=== PATIENT | female | born 1935 | race Caucasian/White ===

== ENCOUNTER 2018-09-13 08:55 | Emergency (ER) | payer OTHER ==
--- NOTE | 2018-09-13 10:23 | RAD REPORT ---
EXAM DESCRIPTION: CT - C Spine Wo Con - 09/13/2018 9:56 am CLINICAL HISTORY: Arm radiculopathy COMPARISON: None. TECHNIQUE: Computed axial tomography of the cervical spine were obtained with sagittal and coronal r econstruction images generated and reviewed. All CT scans are performed using dose optimization technique as appropriate and may include automated exposure control or mA/KV adjustment according to patient size. FINDINGS: A cervical fracture is not seen. No dislocation is noted. Small to moderate right posterolateral central disc herniation suspected C2-3 Osteophytes and facet hypertrophy C3-4 resulting in moderate narrowing of the right neural foramina. Osteophytes and disc bulge C5-6 result in moderate narrowing left neural foramina IMPRESSION: A cervical fracture is not seen. 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
--- NOTE | 2018-09-13 10:45 | ER ---
Nurse's Notes [facility] Name: Cindy Herman Age: 83 yrs Sex: Female : 1935 Arrival Date: 09/13/2018 Time: 08:57 Bed 6 Private MD: China Spence Diagnosis: Sprain of ligaments of cervical spine Presentation: 09/13 09:11 Presenting complaint: Patient states: pain to right side of neck X 1 week, denies iw injury, tender to touch, denies fever, pain sometimes radiates to right arm and up to head, she had a cough about a week before neck pain started, cough has resolved. Transition of care: patient was not received from another setting of care. Acute neurological deficit: none identified. Onset of symptoms was September 13, 2018. Risk Assessment: Do you want to hurt yourself or someone else? Patient reports no desire to harm self or others. Initial Sepsis Screen: Does the patient meet any 2 criteria? No. Patient's initial sepsis screen is negative. Does the patient have a suspected source of infection? No. Patient's initial sepsis screen is negative. Care prior to arrival: None. 09:11 Method Of Arrival: Ambulatory iw 09:11 Acuity: FLAVIO 3 iw Historical: - Allergies: 09:30 Macrobid; iw 09:30 Lisinopril; iw 09:30 cipro-can't take with Nitro; iw - Home Meds: 09:30 alendronate 70 mg oral tab 1 tab once wkly [Active]; atorvastatin 10 mg oral tab 1 tab iw once daily [Active]; carvedilol 6.25 mg oral tab 1 tab 2 times per day [Active]; glimepiride 2 mg Oral tab 1 tab once daily [Active]; ropinirole 5 mg oral tab nightly [Active]; metformin 1,000 mg Oral tab 1 tab 2 times per day [Active]; doxazosin 2 mg oral tab 1 tab once daily [Active]; omeprazole 40 mg Oral cpDR 1 cap once daily [Active]; Nitrostat 0.3 mg SL subl 1 tab every 5 minutes [Active]; aspirin 81 mg Oral TbEC 1 tab once daily [Active]; Ocuvite 705-90-0-150 vl-ayyi-tl-mg oral cap [Active]; Vitamin D Oral daily [Active]; Fish Oil oral oral daily [Active]; Vitamin B-12 Oral [Active]; gabapentin 100 mg oral cap [Active]; - PMHx: 09:30 Hypertension; Diabetes - NIDDM; iw - PSHx: 09:30 Tonsillectomy; Carpal Tunnel Repair; cataracts; heart valve replacement; Tubal ligation;iw - Immunization history:: Adult Immunizations up to date. - Social history:: Smoking status: Patient/guardian denies using tobacco, Patient/guardian denies using alcohol, street drugs, The patient lives with family. - Ebola Screening: : No symptoms or risks identified at this time. - Family history:: not pertinent. - Hospitalizations: : No recent hospitalization is reported. Screenin:08 Abuse screen: Denies threats or abuse. Denies injuries from another. Nutritional hb screening: No deficits noted. Tuberculosis screening: No symptoms or risk factors identified. Fall Risk None identified. Assessment: 09:34 General: Appears in no apparent distress. Behavior is calm, cooperative. Pain: Pain hb currently is 4 out of 10 on a pain scale. Neuro: Level of Consciousness is awake, alert, obeys commands, Oriented to person, place, time, situation. Cardiovascular: Capillary refill < 3 seconds Patient's skin is warm and dry. Respiratory: Airway is patent Trachea midline Respiratory effort is even, unlabored, Respiratory pattern is regular, symmetrical, Breath sounds are clear bilaterally. GI: No signs and/or symptoms were reported involving the gastrointestinal system. : No signs and/or symptoms were reported regarding the genitourinary system. EENT: No signs and/or symptoms were reported regarding the EENT system. Derm: Skin is intact, is healthy with good turgor, Skin is pink, warm \T\ dry. Musculoskeletal: Reports neck. 10:30 Reassessment: Patient appears in no apparent distress at this time. Patient and/or hb family updated on plan of care and expected duration. Pain level reassessed. Patient is alert, oriented x 3, equal unlabored respirations, skin warm/dry/pink. 11:30 Reassessment: Patient appears in no apparent distress at this time. No changes from hb previously documented assessment. Patient and/or family updated on plan of care and expected duration. Pain level reassessed. Patient is alert, oriented x 3, equal unlabored respirations, skin warm/dry/pink. Vital Signs: 09:07 BP 174 / 69; Pulse 75; Resp 16; Pulse Ox 96% on R/A; hb 11:11 BP 133 / 61; Pulse 62; Resp 18; Pulse Ox 97% on R/A; mh5 ED Course: 08:57 Patient arrived in ED. as 08:58 China Spence MD is Private Physician. as 09:07 Brendon Sow MD is Attending Physician. ma2 09:15 Mayco Reich, RN is Primary Nurse. hj 09:15 Triage completed. iw 09:16 Arm band placed on. iw 09:30 Patient has correct armband on for positive identification. Placed in gown. Bed in low hb position. Call light in reach. Side rails up X 1. 09:53 Urine collected: clean catch specimen, cloudy. [facility] 09:56 CT C Spine In Process Unspecified. EDMS 09:56 CT completed. Patient tolerated procedure well. Patient moved back from CT. bq 10:25 Radha Newsome, RN is Primary Nurse. hb 12:25 No provider procedures requiring assistance completed. Patient did not have IV access hj during this emergency room visit. Administered Medications: No medications were administered Outcome: 10:45 Discharge ordered by . ma2 12:25 Discharged to home ambulatory, with family. 12:25 Condition: stable 12:25 Discharge instructions given to patient, family, Instructed on discharge instructions, follow up and referral plans. Demonstrated understanding of instructions, follow-up care, medications, Prescriptions given X 2. 12:29 Patient left the ED. Signatures: Dispatcher [employer] EDAK Zulma Hernandez Amelia as Williams, Irene, RN RN Mayco Reich RN RN Radha Newsome, DEJUAN ZAIDI Tika Solis [facility] Brendon Sow MD MD wvMarlene
--- NOTE | 2018-09-13 10:45 | EDPHYS ---
Physician Documentation [facility] Name: Cindy Herman Age: 83 yrs Sex: Female : 1935 Arrival Date: 09/13/2018 Time: 08:57 Bed 6 Private MD: China Spence ED Physician Brendon Sow HPI: 09/13 09:34 This 83 yrs old Female presents to ER via Ambulatory with complaints of Neck ma2 Pain, >24Hrs Old. 09:34 The patient or guardian complains of pain, that is acute. The symptoms are located ma2 right neck . Onset: The symptoms/episode began/occurred gradually, 7 day(s) ago. Associated signs and symptoms: Pertinent positives: Pertinent negatives: chills, constipation, fever, headache, bladder incontinence, bowel incontinence, nausea, numbness, tingling, vomiting, weakness, No neurological symptoms were experienced by the patient prior to arrival in the emergency department. The pain radiates to the cervical spine. Modifying factors: The symptoms are alleviated by heat, the symptoms are aggravated by movement. Severity of symptoms: At their worst the symptoms were moderate, in the emergency department the symptoms are unchanged. The patient has not experienced similar symptoms in the past. Historical: - Allergies: 09:30 Macrobid; iw 09:30 Lisinopril; iw 09:30 cipro-can't take with Nitro; iw - Home Meds: 09:30 alendronate 70 mg oral tab 1 tab once wkly [Active]; atorvastatin 10 mg oral tab 1 tab iw once daily [Active]; carvedilol 6.25 mg oral tab 1 tab 2 times per day [Active]; glimepiride 2 mg Oral tab 1 tab once daily [Active]; ropinirole 5 mg oral tab nightly [Active]; metformin 1,000 mg Oral tab 1 tab 2 times per day [Active]; doxazosin 2 mg oral tab 1 tab once daily [Active]; omeprazole 40 mg Oral cpDR 1 cap once daily [Active]; Nitrostat 0.3 mg SL subl 1 tab every 5 minutes [Active]; aspirin 81 mg Oral TbEC 1 tab once daily [Active]; Ocuvite 367-04-1-150 ui-hckt-az-mg oral cap [Active]; Vitamin D Oral daily [Active]; Fish Oil oral oral daily [Active]; Vitamin B-12 Oral [Active]; gabapentin 100 mg oral cap [Active]; - PMHx: 09:30 Hypertension; Diabetes - NIDDM; iw - PSHx: 09:30 Tonsillectomy; Carpal Tunnel Repair; cataracts; heart valve replacement; Tubal ligation;iw - Immunization history:: Adult Immunizations up to date. - Social history:: Smoking status: Patient/guardian denies using tobacco, Patient/guardian denies using alcohol, street drugs, The patient lives with family. - Ebola Screening: : No symptoms or risks identified at this time. - Family history:: not pertinent. - Hospitalizations: : No recent hospitalization is reported. ROS: 09:34 Constitutional: Negative for fever, chills, and weight loss. ma2 09:34 Neck: Positive for pain with movement, Negative for injury or acute deformity, stiffness, swelling, swollen nodes, tenderness, bony tenderness, acute changes. 09:34 All other systems are negative. Exam: 09:34 Constitutional: This is a well developed, well nourished patient who is awake, alert, ma2 and in no acute distress. Chest/axilla: Normal chest wall appearance and motion. Nontender with no deformity. No lesions are appreciated. Cardiovascular: Regular rate and rhythm with a normal S1 and S2. No gallops, murmurs, or rubs. Normal PMI, no JVD. No pulse deficits. Respiratory: Lungs have equal breath sounds bilaterally, clear to auscultation and percussion. No rales, rhonchi or wheezes noted. No increased work of breathing, no retractions or nasal flaring. Abdomen/GI: Soft, non-tender, with normal bowel sounds. No distension or tympany. No guarding or rebound. No evidence of tenderness throughout. 09:34 Head/Face: Normocephalic, atraumatic. Eyes: Pupils equal round and reactive to light, extra-ocular motions intact. Lids and lashes normal. Conjunctiva and sclera are non-icteric and not injected. Cornea within normal limits. Periorbital areas with no swelling, redness, or edema. ENT: Nares patent. No nasal discharge, no septal abnormalities noted. Tympanic membranes are normal and external auditory canals are clear. Oropharynx with no redness, swelling, or masses, exudates, or evidence of obstruction, uvula midline. Mucous membranes moist. 09:34 MS/ Extremity: Pulses equal, no cyanosis. Neurovascular intact. Full, normal range of motion. Neuro: Awake and alert, GCS 15, oriented to person, place, time, and situation. Cranial nerves II-XII grossly intact. Motor strength 5/5 in all extremities. Sensory grossly intact. Cerebellar exam normal. Normal gait. 09:34 ENT: TM's: are normal, Nose: is normal, Mouth: is normal. 09:34 Neck: External neck: is normal, C-spine: Thyroid: appears normal, ROM/movement: limited range of motion, that is mild, nuchal rigidity, is not appreciated. Vital Signs: 09:07 BP 174 / 69; Pulse 75; Resp 16; Pulse Ox 96% on R/A; hb 11:11 BP 133 / 61; Pulse 62; Resp 18; Pulse Ox 97% on R/A; mh5 MDM: 09:07 Patient medically screened. ma2 09:34 Differential diagnosis: arthritis, C-Spine Fracture Cervical Disc Herniation Cervical ma2 Raiculopathy cervical strain. 10:44 Data reviewed: vital signs, nurses notes. Counseling: I had a detailed discussion with ma2 the patient and/or guardian regarding: the historical points, exam findings, and any diagnostic results supporting the discharge/admit diagnosis, the presence of at least one elevated blood pressure reading (>120/80) during this emergency department visit, the need for outpatient follow up. 09/13 09:59 Order name: Urine Dipstick--Ancillary (enter results) bd 09/13 09:33 Order name: CT C Spine; Complete Time: 10:44 [facility] Administered Medications: No medications were administered Disposition: 09/13/18 10:45 Discharged to Home. Impression: Sprain of ligaments of cervical spine. - Condition is Stable. - Prescriptions for Tylenol- Codeine #3 300-30 mg Oral Tablet - take 2 tablet by ORAL route every 6 hours As needed; 30 tablet. Cyclobenzaprine 10 mg Oral Tablet - take 1 tablet by ORAL route every 8 hours As needed; 30 tablet. - Medication Reconciliation Form, Thank You Letter, Antibiotic Education, Prescription Opioid Use form. - Follow up: Private Physician; When: Tomorrow; Reason: Continuance of care. Signatures: Dispatcher [employer] Angelika Nelson, RN Mayco Brower RN RN hj Baxter, Heather, RN RN hb Alzahri, Mohammad, MD MD ma2 Corrections: (The following items were deleted from the chart) 12:29 10:45 09/13/2018 10:45 Discharged to Home. Impression: Sprain of ligaments of cervical hj spine. Condition is Stable. Forms are Medication Reconciliation Form, Thank You Letter, Antibiotic Education, Prescription Opioid Use. Follow up: Private Physician; When: Tomorrow; Reason: Continuance of care. ma2
[2018-09-13 11:18] LABS: Urine Blood 1+ (NEG); Urine Glucose NEGATIVE (NEG); Urine Protein TRACE (NEG); Urine Specific Gravity 1.025 (1.005-1.030); Urine pH 5.5 (5.0-7.0)
== END 2018-09-13 12:29 | disposition home or self-care (01) ==
LOC: ER 08:55
DX: S13.4XXA Sprain of ligaments of cervical spine, initial encounter (principal); I10 Essential (primary) hypertension; E11.9 Type 2 diabetes mellitus without complications; Z79.82 Long term (current) use of aspirin; Z88.1 Allergy status to other antibiotic agents; Z88.8 Allergy status to other drugs, medicaments and biological substances; Z95.4 Presence of other heart-valve replacement
CPT/HCPCS: 72125; 81003; 99284

== ENCOUNTER 2019-04-10 14:22 | Inpatient (IN) | payer OTHER ==
[2019-04-10 16:37] LABS: Absolute Lymphocytes (CBC) 0.5 K/uL (0.7-4.9); Basophils % 0.2 % (0-1.3); Hematocrit 33.2 % (36.0-45.0); Lymphocytes % 11.4 % (15.3-44.8); MPV 8.5 fL (7.6-11.3); RBC Red Blood Cell Count 4.07 M/uL (3.86-4.86)
[2019-04-10] MEDS ORDERED: MORPHINE 2 MG/ML SYR ONE (16:37)
[2019-04-10] MEDS ORDERED: ONDANSETRON 4 MG/2 ML VIAL ONE ×2 (16:37→18:59)
[2019-04-10] MEDS ORDERED: NA CHLORIDE 0.9% 500 ML ONE (16:37)
[2019-04-10 17:00] LABS: Albumin 3.1 g/dL (3.4-5.0); Bilirubin Direct 0.4 mg/dL (0-0.2); Bilirubin Total 1.5 mg/dL (0.2-1.0); Potassium 3.8 mmol/L (3.5-5.1); Protein, Total 6.9 g/dL (6.4-8.2)
--- NOTE | 2019-04-10 17:07 | RAD REPORT ---
EXAM DESCRIPTION: CT - Stone Protocol - 04/10/2019 4:51 pm CLINICAL HISTORY: Flank pain. FLANK PAIN COMPARISON: No comparisons TECHNIQUE: Axial images were obtained without oral or IV contrast. Lack of contrast limits solid org an and vascular assessment. The etoan-fh-jlen spans the entirety of the system partially obscuring uppermost abdomen and lung bases. Coronal reformatted images were obtained and reviewed. All CT scans are performed using dose optimization technique as appropriate and may include automated exposure control or mA/KV adjustment according to patient size. FINDINGS: Linear subsegmental atelectasis is present in both lung bases. Mild inferior left pleural thickening is seen. Cholecystectomy clips. Moderate inflammatory changes are present in the right upper quadrant. There is thickening in the reg ion of the distal stomach with a small collection of air seen extraluminal to the stomach in the righ t upper quadrant along the falciform ligament.Moderate splenomegaly. The pancreas and adrenal glands are normal. No pathologic lymphadenopathy in the abdomen or pelvis. No urinary tract stones or obstructive uropathy. 3 cm cyst is present in the inferior calyx of the le ft kidney. No urinary tract stone or hydronephrosis. No bowel obstruction, free air, free fluid or abscess. The appendix is not identified as a discrete s tructure, however, no secondary findings of appendicitis are identified. No significant bony abnormality. IMPRESSION: Inflammatory changes in the right upper quadrant are seen with significant thickening of the distal stomach fung. Small extraluminal air collection is seen adjacent to the distal stomach. Most likely, the patient has a perforated gastric ulcer or perforated gastric mass in this region. Re commend follow-up upper endoscopy.
[2019-04-10 17:11] LABS: Blood Morphology Comment NOTED (NOT SEEN); Platelet Estimate DECR; Poikilocytosis 1+; Urine White Blood Cell Casts OK
[2019-04-10] MEDS ORDERED: PANTOPRAZOLE 40 MG INJ ONE (17:47)
--- NOTE | 2019-04-10 17:59 | ER ---
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 Pt also reports diarrhea, denies nausea/vomiting. Transition of care: patient was not received from another setting of care. Onset of symptoms was April 10, 2019. Risk Assessment: Do you want to hurt yourself or someone else? Patient reports no desire to harm self or others. Initial Sepsis Screen: Does the patient meet any 2 criteria? No. Patient's initial sepsis screen is negative. Does the patient have a suspected source of infection? No. Patient's initial sepsis screen is negative. Care prior to arrival: None. 14:39 Acuity: FLAVIO 3 aa5 14:39 Method Of Arrival: Wheelchair aa5 Historical: - Allergies: 14:40 cipro-can't take with Nitro; aa5 14:40 Lisinopril; aa5 14:40 Macrobid; aa5 - Home Meds: 17:45 alendronate 70 mg Oral tab 1 tab once wkly [Active]; atorvastatin 10 mg Oral tab 1 tab tw2 once daily [Active]; carvedilol 6.25 mg Oral tab 1 tab 2 times per day [Active]; glimepiride 2 mg Oral tab 1 tab once daily [Active]; ropinirole 5 mg Oral tab nightly [Active]; metformin 1,000 mg Oral tab 1 tab 2 times per day [Active]; doxazosin 2 mg Oral tab 1 tab once daily [Active]; Nitrostat 0.3 mg SL subl 1 tab every 5 minutes [Active]; aspirin 81 mg Oral TbEC 1 tab once daily [Active]; Ocuvite 040-76-2-150 en-uwmf-ih-mg Oral cap [Active]; Vitamin D-3 with Aloe 120-1,000-10 mg-unit-mg oral tab [Active]; Vitamin C 500 mg Oral cpER [Active]; Fish Oil 1,000 mg oral cap [Active]; Vitamin B-12 1,000 mcg oral tab [Active]; gabapentin 100 mg Oral cap [Active]; - PMHx: 14:40 Diabetes - NIDDM; Hypertension; Kidney stones; aa5 - PSHx: 14:40 Tonsillectomy; Carpal Tunnel Repair; cataracts; heart valve replacement; Tubal ligation;aa5 - Immunization history:: Pneumococcal vaccine is up to date, Flu vaccine is up to date. - Social history:: Smoking status: Patient/guardian denies using tobacco. - Ebola Screening: : No symptoms or risks identified at this time. Screenin:38 Abuse screen: Denies threats or abuse. Nutritional screening: No deficits noted. tw2 Tuberculosis screening: No symptoms or risk factors identified. Fall Risk Secondary diagnosis (15 points) impaired mobility. Assessment: 16:00 General: Appears in no apparent distress. Behavior is calm, cooperative, appropriate tw2 for age. Pain: Complains of pain in right upper quadrant and right lower quadrant. Neuro: Level of Consciousness is awake, alert, obeys commands, Oriented to person, place, time, situation. Cardiovascular: Heart tones S1 S2 Patient's skin is warm and dry. Respiratory: Airway is patent Respiratory effort is even, unlabored, Respiratory pattern is regular, symmetrical, Breath sounds are clear bilaterally. GI: Abdomen is round distended, Bowel sounds present X 4 quads. Reports lower abdominal pain, upper abdominal pain. GI: Reports bloating. : No signs and/or symptoms were reported regarding the genitourinary system. EENT: No signs and/or symptoms were reported regarding the EENT system. Derm: No signs and/or symptoms reported regarding the dermatologic system. Musculoskeletal: Range of motion: intact in all extremities. 17:00 Reassessment: Patient appears in no apparent distress at this time. No changes from tw2 previously documented assessment. Patient and/or family updated on plan of care and expected duration. Pain level reassessed. Patient is alert, oriented x 3, equal unlabored respirations, skin warm/dry/pink. Patient states feeling better. 18:34 Reassessment: Patient appears in no apparent distress at this time. No changes from tw2 previously documented assessment. Patient and/or family updated on plan of care and expected duration. Pain level reassessed. Patient is alert, oriented x 3, equal unlabored respirations, skin warm/dry/pink. Vital Signs: 14:41 BP 118 / 64; Pulse 84; Resp 16 S; Temp 98.7(TE); Pulse Ox 97% on R/A; Weight 82.55 kg aa5 (R); Height 5 ft. 5 in. (165.10 cm) (R); Pain 9/10; 16:43 BP 103 / 52; Pulse 64; Resp 17; Pulse Ox 97% on R/A; tw2 17:49 BP 101 / 48; Pulse 62; Resp 17; Temp 98.9(O); Pulse Ox 97% ; mh5 18:34 BP 102 / 55; Pulse 61; Resp 17; Pulse Ox 96% on R/A; tw2 14:41 Body Mass Index 30.29 (82.55 kg, 165.10 cm) aa5 ED Course: 14:25 Patient arrived in ED. ag5 14:26 China Spence MD is Private Physician. ag5 14:39 Arm band placed on. aa5 14:40 Triage completed. aa5 16:00 Filipe Cline PA is PHCP. cp 16:00 Filipe Marshall MD is Attending Physician. cp 16:15 Arelis Mcpherson, DEJUAN is Primary Nurse. tw2 16:43 Missed attempt(s): 22 gauge in left antecubital area. Bleeding controlled, band aid tw2 applied, catheter tip intact. Inserted saline lock: 22 gauge in right antecubital area, using aseptic technique. Blood collected. 16:54 CT Stone Protocol In Process Unspecified. EDMS 17:33 Anderson Luis MD is Attending Physician. cp 17:47 Patient has correct armband on for positive identification. Placed in gown. Call light 5 in reach. Side rails up X 1. Pulse ox on. NIBP on. 17:47 Urine collected: clean catch specimen, cloudy. mh5 17:48 Urine Microscopic Only Sent. 5 17:57 Geraldine Del Real MD is Hospitalizing Provider. cp 18:40 No provider procedures requiring assistance completed. Patient admitted, IV remains in tw2 place. Administered Medications: 16:40 Drug: Zofran 4 mg Route: IVP; Site: right antecubital; tw2 17:39 Follow up: Response: No adverse reaction tw2 16:42 Drug: NS 0.9% 500 ml Route: IV; Rate: 100 ml/hr; Site: right antecubital; tw2 18:30 Follow up: IV Status: Infusion continued upon admission tw2 18:36 Follow up: IV Status: Infusion continued upon admission tw2 16:42 Drug: morphine 2 mg Route: IVP; Site: right antecubital; tw2 17:35 Follow up: Response: No adverse reaction; Pain is decreased tw2 17:38 Drug: ProTONIX 80 mg Route: IVP; Site: right antecubital; tw2 18:31 Follow up: Response: No adverse reaction tw2 18:09 Not Given (meropenem ordered): Ertapenem 1 grams IVPB once over 30 mins; (mix in 100 mL tw2 NS) 18:13 Drug: Meropenem 1 grams Route: IV; Rate: 1 calculated rate; Site: right antecubital; tw2 18:35 Follow up: IV Status: Infusion continued upon admission tw2 18:36 Not Given (Medication given to DEJUAN Brand from OR as pts IV has abx infusing): tw2 ProTONIX 8 mg/hr IV at 25 ml/hr continuous; (Standard dilution is 80 mg in 250 mL NS) Point of Care Testing: Blood Glucose: 18:04 Blood Glucose: 98 mg/dL; tw2 18:04 per Diana Munoz tw2 Ranges: Outcome: 17:58 Decision to Hospitalize by Provider. cp 18:40 Admitted to OR accompanied by nurse, via stretcher, with chart, Report called to [facility] DEJUAN Brand from OR 18:40 Condition: stable 18:40 Instructed on the need for admit. 18:41 Patient left the ED. tw2 Signatures: Dispatcher [employer] EDMS Mariah Mir RN RN aa5 Filipe Cline PA PA Arelis Castillo RN RN 2 Tika Solis 5 Jack Fall 5 Corrections: (The following items were deleted from the chart) 18:34 18:07 Blood Glucose: Blood Glucose Reading=98 mg/dL. [place] [id number]
[2019-04-10] MEDS: PANTOPRAZOLE INJ 80 MG in NA CHLORIDE 0.9% 250 ML IV SCH (18:00)
[2019-04-10] MEDS: NA CHLORIDE 0.9% 1,000 ML IV SCH (18:00)
[2019-04-10] MEDS ORDERED: Meropenem 1,000 MG in NA CHLORIDE 0.9% 100 ML IV ONE (18:00)
--- NOTE | 2019-04-10 18:00 | EDPHYS ---
Physician Documentation [facility] Name: Cindy Herman Age: 83 yrs Sex: Female : 1935 Arrival Date: 04/10/2019 Time: 14:25 Bed 16 Private MD: China Spence ED Physician Anderson Luis HPI: 04/10 16:15 This 83 yrs old Female presents to ER via Wheelchair with complaints of PAIN cp IN RIGHT SIDE. 16:15 The patient presents with abdominal pain in the right upper quadrant. cp 16:15 Onset: The symptoms/episode began/occurred suddenly, this morning, at 03:00, awoke cp patient from sleep. The symptoms do not radiate. Associated signs and symptoms: Pertinent negatives: blood in stools, chest pain, constipation, diarrhea, dysuria, fever, vomiting. The symptoms are described as like a punch. Severity of pain: in the emergency department the pain is unchanged despite home interventions. Historical: - Allergies: 14:40 cipro-can't take with Nitro; aa5 14:40 Lisinopril; aa5 14:40 Macrobid; aa5 - Home Meds: 17:45 alendronate 70 mg Oral tab 1 tab once wkly [Active]; atorvastatin 10 mg Oral tab 1 tab tw2 once daily [Active]; carvedilol 6.25 mg Oral tab 1 tab 2 times per day [Active]; glimepiride 2 mg Oral tab 1 tab once daily [Active]; ropinirole 5 mg Oral tab nightly [Active]; metformin 1,000 mg Oral tab 1 tab 2 times per day [Active]; doxazosin 2 mg Oral tab 1 tab once daily [Active]; Nitrostat 0.3 mg SL subl 1 tab every 5 minutes [Active]; aspirin 81 mg Oral TbEC 1 tab once daily [Active]; Ocuvite 025-64-5-150 fm-acmc-ab-mg Oral cap [Active]; Vitamin D-3 with Aloe 120-1,000-10 mg-unit-mg oral tab [Active]; Vitamin C 500 mg Oral cpER [Active]; Fish Oil 1,000 mg oral cap [Active]; Vitamin B-12 1,000 mcg oral tab [Active]; gabapentin 100 mg Oral cap [Active]; - PMHx: 14:40 Diabetes - NIDDM; Hypertension; Kidney stones; aa5 - PSHx: 14:40 Tonsillectomy; Carpal Tunnel Repair; cataracts; heart valve replacement; Tubal ligation;aa5 - Immunization history:: Pneumococcal vaccine is up to date, Flu vaccine is up to date. - Social history:: Smoking status: Patient/guardian denies using tobacco. - Ebola Screening: : No symptoms or risks identified at this time. ROS: 16:20 Constitutional: Negative for body aches, chills, fever, poor PO intake. cp 16:20 Eyes: Negative for injury, pain, redness, and discharge. cp 16:20 ENT: Negative for drainage from ear(s), ear pain, sore throat, difficulty swallowing, difficulty handling secretions. 16:20 Cardiovascular: Negative for chest pain, edema, palpitations. 16:20 Respiratory: Negative for cough, shortness of breath, wheezing. 16:20 Abdomen/GI: Positive for abdominal pain, Negative for vomiting, diarrhea, constipation, anorexia, dysphagia, black/tarry stool, rectal bleeding. 16:20 Back: Negative for pain at rest, pain with movement, radiated pain. 16:20 : Negative for urinary symptoms, flank pain. 16:20 Skin: Negative for rash. 16:20 Neuro: Negative for altered mental status, headache, weakness. 16:20 All other systems are negative. Exam: 16:30 Constitutional: The patient appears in no acute distress, alert, awake, non-toxic, well cp developed, well nourished, uncomfortable. 16:30 Head/Face: Normocephalic, atraumatic. cp 16:30 Eyes: Periorbital structures: appear normal, Conjunctiva: normal, no exudate, no injection, Sclera: no appreciated abnormality, Lids and lashes: appear normal, bilaterally. 16:30 ENT: External ear(s): are unremarkable, Nose: is normal, Mouth: Lips: moist, Oral mucosa: pink and intact, moist, Posterior pharynx: is normal, airway is patent, no erythema, no exudate. 16:30 Chest/axilla: Inspection: normal, Palpation: is normal, no crepitus, no tenderness. 16:30 Cardiovascular: Rate: normal, Rhythm: regular, Edema: is not appreciated, JVD: is not appreciated. 16:30 Respiratory: the patient does not display signs of respiratory distress, Respirations: normal, no use of accessory muscles, no retractions, no splinting, no tachypnea, labored breathing, is not present, Breath sounds: are clear throughout, no decreased breath sounds, no stridor, no wheezing. 16:30 Abdomen/GI: Inspection: abdomen appears normal, Bowel sounds: active, all quadrants, Palpation: soft, in all quadrants, severe abdominal tenderness, rebound tenderness, is not appreciated, voluntary guarding, is elicited in the epigastric area and right upper quadrant. 16:30 Back: pain, is absent, ROM is normal. 16:30 Skin: no rash present. 16:30 Neuro: Orientation: to person, place \T\ time. Mentation: is normal, Cerebellar function: is grossly normal, Motor: moves all fours, strength is normal, Sensation: is normal. Vital Signs: 14:41 BP 118 / 64; Pulse 84; Resp 16 S; Temp 98.7(TE); Pulse Ox 97% on R/A; Weight 82.55 kg aa5 (R); Height 5 ft. 5 in. (165.10 cm) (R); Pain 9/10; 16:43 BP 103 / 52; Pulse 64; Resp 17; Pulse Ox 97% on R/A; tw2 17:49 BP 101 / 48; Pulse 62; Resp 17; Temp 98.9(O); Pulse Ox 97% ; mh5 18:34 BP 102 / 55; Pulse 61; Resp 17; Pulse Ox 96% on R/A; tw2 14:41 Body Mass Index 30.29 (82.55 kg, 165.10 cm) aa5 MDM: 16:01 Patient medically screened. [facility] 16:30 Differential diagnosis: bowel obstruction, gastritis, GI Bleed, pancreatitis, Peptic cp Ulcer Disease, Perf. Duodenal Ulcer, Perf. Gastric Ulcer, Pyelonephritis, Ureterolithiasis, urinary tract infection. 17:30 Data reviewed: vital signs, nurses notes, lab test result(s), radiologic studies, CT cp scan. 17:30 Counseling: I had a detailed discussion with the patient and/or guardian regarding: the cp historical points, exam findings, and any diagnostic results supporting the discharge/admit diagnosis, radiology results, the need for further work-up and treatment in the hospital. 17:32 Physician consultation: Mayco Solis MD was called at 17:25, was contacted at 17:25, regarding consult, patient's condition, and will see patient in ED, shortly. 04/10 16:13 Order name: Basic Metabolic Panel; Complete Time: 17:16 04/10 17:16 Interpretation: Normal except: CL 111; GLUC 117; BUN 22; GFR 49; CA 7.9. 04/10 16:13 Order name: CBC with Diff; Complete Time: 17:16 04/10 17:17 Interpretation: Normal except: HGB 10.7; HCT 33.2; MCV 81.7; MCH 26.2; PLT 80; RDW cp 17.5; CHRISTEN% 78.4; LYM% 11.4; LYMA 0.5. 04/10 16:13 Order name: Creatinine for Radiology; Complete Time: 17:16 04/10 16:13 Order name: Hepatic Function; Complete Time: 17:16 04/10 17:16 Interpretation: Normal except: BILIT 1.5; BILID 0.4; ALB 3.1; GLOB 3.8; A/G 0.8. 04/10 16:13 Order name: Lipase; Complete Time: 17:16 04/10 16:13 Order name: Urine Microscopic Only 04/10 16:36 Order name: CT Stone Protocol; Complete Time: 17:16 04/10 16:46 Order name: CBC Smear Scan; Complete Time: 17:16 EDMT 04/10 18:21 Order name: Urine Dipstick--Ancillary (enter results) 04/10 16:13 Order name: IV Saline Lock; Complete Time: 16:42 04/10 16:13 Order name: Labs collected and sent; Complete Time: 16:42 04/10 16:13 Order name: Urine Dipstick-Ancillary (obtain specimen); Complete Time: 17:48 04/10 17:19 Order name: NPO; Complete Time: 17:50 04/10 18:09 Order name: Glucose Level; Complete Time: 18:09 tw2 04/10 18:21 Order name: CONS Physician Consult EDMT 04/10 18:21 Order name: NPO; Complete Time: 18:31 EDMS Administered Medications: 16:40 Drug: Zofran 4 mg Route: IVP; Site: right antecubital; tw2 17:39 Follow up: Response: No adverse reaction tw2 16:42 Drug: NS 0.9% 500 ml Route: IV; Rate: 100 ml/hr; Site: right antecubital; tw2 18:30 Follow up: IV Status: Infusion continued upon admission tw2 18:36 Follow up: IV Status: Infusion continued upon admission tw2 16:42 Drug: morphine 2 mg Route: IVP; Site: right antecubital; tw2 17:35 Follow up: Response: No adverse reaction; Pain is decreased tw2 17:38 Drug: ProTONIX 80 mg Route: IVP; Site: right antecubital; tw2 18:31 Follow up: Response: No adverse reaction tw2 18:09 Not Given (meropenem ordered): Ertapenem 1 grams IVPB once over 30 mins; (mix in 100 mL tw2 NS) 18:13 Drug: Meropenem 1 grams Route: IV; Rate: 1 calculated rate; Site: right antecubital; tw2 18:35 Follow up: IV Status: Infusion continued upon admission tw2 18:36 Not Given (Medication given to DEJUAN Brand from OR as pts IV has abx infusing): tw2 ProTONIX 8 mg/hr IV at 25 ml/hr continuous; (Standard dilution is 80 mg in 250 mL NS) Point of Care Testing: Blood Glucose: 18:04 Blood Glucose: 98 mg/dL; tw2 18:04 per Diana Munoz tw2 Ranges: Critical Glucose Levels:Adult <50 mg/dl or >400 mg/dl <40 mg/dl or >180 mg/dl Disposition: 04/10/19 17:58 Hospitalization ordered by Geraldine Del Real for Inpatient Admission. Preliminary diagnosis is Chronic or unspecified gastric ulcer with perforation. - Bed requested for Operating Room. - Status is Inpatient Admission. tw2 - Condition is Stable. - Problem is new. - Symptoms have improved. UTI on Admission? No Addendum: 04/12/2019 07:06 Co-signature as Attending Physician, Anderson Luis MD. r n Signatures: Dispatcher [employer] Filipe Moreno MD MD cha Nieto, Roman, MD MD rn Calderon, Audri RN RN aa5 Page, Filipe, PA PA cp Mcpherson, Arelis, RN RN tw2 Corrections: (The following items were deleted from the chart) 04/10 17:16 17:16 Normal except: CL 111; GLUC 117; BUN 22; GFR 49. cp cp 18:08 17:50 Accucheck ordered. tw2 tw2 18:41 17:58 Hospitalization Ordered by Geraldine Del Real MD for Inpatient Admission. Preliminary tw2 diagnosis is Chronic or unspecified gastric ulcer with perforation. Bed requested for Operating Room. Status is Inpatient Admission. Condition is Stable. Problem is new. Symptoms have improved. UTI on Admission? No. cp
[2019-04-10 18:38] LABS: Urine Bacteria >50 /HPF (<20); Urine Culture Reflex Order REFLEXED
[2019-04-10] MEDS ORDERED: GLYCOPYRROLATE 0.2 MG/ML SYR ONE (18:58)
[2019-04-10] MEDS ORDERED: FENTANYL CITR 100 MCG/2 ML ONE (18:58)
[2019-04-10] MEDS ORDERED: PROPOFOL 200 MG/20 ML VIAL IV ONE (18:58)
[2019-04-10] MEDS ORDERED: MIDAZOLAM HCL 2 MG/2 ML INJ ONE (18:58)
[2019-04-10] MEDS ORDERED: MORPHINE 10 MG/ML VIAL ONE (18:59)
[2019-04-10] MEDS ORDERED: NEOSTIGMINE 1 MG/ML -10 ML VIAL ONE (18:59)
[2019-04-10] MEDS ORDERED: KETOROLAC 30 MG/ML INJ ONE (19:00)
[2019-04-10] MEDS ORDERED: LIDOCAINE 1% MPF 5 ML VIAL ONE (19:00)
[2019-04-10] MEDS ORDERED: ROCURONIUM 50 MG/5 ML VIAL IV ONE (19:00)
[2019-04-10] MEDS ORDERED: NA CHLORIDE 0.9% 1,000 ML ONE ×2 (19:04→20:49)
[2019-04-10 19:07] LABS: Urine Blood 1+ (NEG); Urine Glucose NEGATIVE (NEG); Urine Protein 2+ (NEG); Urine pH 5.5 (5.0-7.0)
--- NOTE | 2019-04-10 20:29 | P.BOP ---
Preoperative diagnosis: peritonitis, pneumoperitoneum, perforated viscous Postoperative diagnosis: same, perforated gastric ulcer Primary procedure: Emergent exploratory laparotomy, closure of perforated gastric ulcer Secondary procedure: Omental dimitris patch, incisional biopsy of gastric ulcer Estimated blood loss: <50cc Specimen: gastric ulcer Findings: perforated gastric ulcer Anesthesia: General Complications: None Drain(s): Nasogastric, Urinary catheter Transferred to: Recovery Room Condition: Good
--- NOTE | 2019-04-10 21:03 | P.HP ---
Certification for Inpatient Patient admitted to: Inpatient With expected LOS: >2 Midnights Patient will require the following post-hospital care: Half-Way Practitioner: I am a practitioner with admitting privileges, knowledge of patient current condition, hospital course, and medical plan of care. Services: Services provided to patient in accordance with Admission requirements found in Title 42 Section 412.3 of the Code of Federal Regulations Patient History Date of Service: 04/10/19 Primary Care Provider: Dr. Spivey Reason for admission: Abdominal pain History of Present Illness: 83-year-old female presented to the emergency room with abdominal pain. Initial workup included CBC, CMP and CT scan. White count 4.0, hemoglobin 10.7. Platelet count of 80. Sodium 142, potassium 3.8. BUN of 22, creatinine 1.803 with a GFR 49. Glucose 117. Calcium 7.9. bilirubin 1.8. Urine showed possible UTI. CT scan revealed inflammatory changes in the right upper quadrant with significant thickening to the distal stomach wall. Small extraluminar air collection seen to the distal stomach most likely perforated gastric ulcer. Patient was initially seen by hospitalist Dr. Del Real. She reported that patient has been taking NSAIDs. Patient was immediately sent to surgery w Dr. Solis. Preop diagnosis peritonitis, pneumoperitoneum and perforated viscus likely gastric ulcer. Allergies ciprofloxacin [From Cipro] Allergy (Verified 04/10/19 19:11) CANT NOT TAKE WITH AMALODIPINE lisinopril Allergy (Verified 04/10/19 19:12) COUGH nitrofurantoin [From Macrobid] Allergy (Verified 04/10/19 19:12) Rash Home medications list reviewed: No - Past Medical/Surgical History Diabetic: Yes -: Diabetes mellitus type 2 -: Restless leg syndrome -: Hypertension -: Tonsillectomy -: Carpal tunnel -: Heart valve surgery -: Tubal ligation Psychosocial/ Personal History: Unknown - Family History Family History: Reviewed- Non-Contributory - Social History Smoking Status: Unknown if ever smoked Place of Residence: Home Review of Systems is unable to be obtained Physical Examination - Vital Signs Temperature: 97.8 F Blood Pressure: 115/44 Pulse: 63 Respirations: 20 - Physical Exam Other Physical/Emotional Findings: Patient currently in the operating room. I will reassess after surgery. - Studies Laboratory Data (last 24 hrs) 04/10/19 16:29: Creatinine 1.08 04/10/19 16:29: WBC 4.4, Hgb 10.7 L, Hct 33.2 L, Plt Count 80 L 04/10/19 16:29: Sodium 142, Potassium 3.8, BUN 22 H, Creatinine 1.08, Glucose 117 H, Total Bilirubin 1.5 H, AST 20, ALT 19, Alkaline Phosphatase 90, Lipase 127 Assessment and Plan - Plan Impression: Abdominal pain secondary to peritonitis, pneumoperitoneum, perforated discuss likely related to perforated gastric ulcer Acute anemia with thrombocytopenia likely related to above Diabetes mellitus type 2, [id number] Hypertension UTI Plan: Abdominal pain secondary to peritonitis, pneumoperitoneum, perforated discuss likely related to perforated gastric ulcer: Patient currently in the operating room for emergent exploratory laparotomy and possible closure of perforated gastric ulcer. Await findings from surgery. Will discuss with surgery. Patient will go to the ICU thereafter. Patient on IV fluids and meropenem. Blood cultures obtained. Will monitor closely. Will reassess after surgery. Will need to obtain more of a history from family. Continue with IV Protonix. Acute anemia with thrombocytopenia likely related to above: Will continue monitor hemoglobin and platelet count. Diabetes mellitus type 2, [id number]: Will monitor Accu-Cheks and place on sliding scale. Hypertension: Will monitor closely UTI: Patient be covered with IV antibiotic therapy. Urine culture obtained Discharge Plan: Other (Suspect skilled placement) Plan to discharge in: Greater than 2 days - Advance Directives Does patient have a Living Will: No Does patient have a Durable POA for Healthcare: No - Code Status/Comfort Care Code Status Assessed: No (Will need to address) Time Spent Managing Pts Care (In Minutes): 55
[2019-04-10] MEDS: MORPHINE 4 MG/ML SYR IV PRN (21:51)
[2019-04-10] MEDS: D5 0.9 NS 1,000 ML IV SCH (22:00)
--- NOTE | 2019-04-11 00:03 | CON ---
Date of Consultation: 04/10/2019 Diagnosis: Pneumoperitoneum, perforated viscus. History Of Present Illness: This is a case of an 83-year-old patient, comes to the ER today with epi gastric and right upper quadrant pain. Initial workup was done by the ER physician, found to have pn eumoperitoneum on imaging with thickening of the distal stomach suspicion for perforated gastric donis floresSusana Surgical consult was immediately called. She denies any trauma. She was diagnosed several years ago with peptic ulcer disease by Dr. Rice and she said the ulcer was removed, but she never had any surgery. She is not on any medication at this moment; at least she is not taking any. She denies an y trauma. Denies eating anything out of the usual. Denies any family member sick at home. Denies a ny dysuria, hematuria, hematochezia, or melena. Colonoscopy was recommended in the past. Past Medical History: Diabetes, hypertension, kidney stone. Past Surgical History: Surgeries include tonsillectomy, carpal tunnel, heart valve replacement, shital ract, tubal ligation. She is not on any blood thinners other than aspirin. Medications: Aspirin. Patient is getting all the rest of the medications. Allergies: CIPRO, LISINOPRIL, AND MACROBID. Social History: She does not smoke. She does not drink alcohol. Family History: Noncontributory. Review of Systems: Ten points otherwise unremarkable. Physical Examination: General: Patient is awake and alert. HEENT: Pupils anicteric. Neck: Supple. Chest: Clear. Abdomen: Epigastric tenderness with guarding, rebound. Pelvic: Deferred. Breasts: Deferred. Rectal: Deferred. Extremities: Good capillary refill. Laboratory Data: Blood work shows a WBC count of 4.4 with hemoglobin of 10.7, platelets of 80. Sodi um is 142, chloride is 111, creatinine is 1.08. Total bilirubin 1.5. UA; nitrites positive, rbc's 5 -10. CAT scan of the abdomen and pelvis interpreted by Dr. Corona as inflammatory changes in the right upper quadrant seen with significant thickening of the distal stomach wall. Extraluminal air collec tion seen adjacent to the distal stomach, most likely representing a perforated gastric ulcer. Patie nt has previous cholecystectomy. Assessment: This is an 83-year-old patient with peritonitis, abdominal pain, gastric thickening, and pneumoperitoneum. Patient is diagnosed with perforated gastric ulcer and emergent laparotomy, repai r of gastric ulcer perforation, possible resection, possible ostomy fully explained to the patient an d family, which include, but are not limited to, infection, bleeding, damage to adjacent structures, anesthesia complication, TN, and even . She also understands this may not relieve any symptoms. She might need more than one surgical intervention. She understands the importance of following up with a financial sales associate as an outpatient to discuss different ways how to decrease the chance of p eptic ulcer disease in the future. She understood immediately. The OR was emergently called. ALLAN/GERMAN Voice ID: [id number] Report ID: [id number]
[2019-04-11] MEDS ORDERED: Meropenem 1000 MG/VIAL IV SCH (01:00)
[2019-04-11] MEDS: FENTANYL CITR 100 MCG/2 ML IV PRN ×4 (01:10→20:45)
[2019-04-11] MEDS ORDERED: Meropenem 1 GM/100 ML BAG ONE (01:29)
--- NOTE | 2019-04-11 01:48 | OP ---
Date of Procedure: 04/10/2019 Surgeon: Mayco Solis MD Preoperative Diagnoses: Acute abdominal pain, pneumoperitoneum, perforated viscus, peritonitis, diab etes, morbid obesity. Postoperative Diagnoses: Acute abdominal pain, pneumoperitoneum, perforated viscus, peritonitis, molina betes, morbid obesity, perforated gastric ulcer, intraabdominal adhesions. Procedures: Emergent exploratory laparotomy, closure of perforated gastric ulcer, lysis of adhesions , omental Rodo patch, and incisional biopsy of gastric ulcer. Specimen: Gastric ulcer. Findings: Patient has a distal stomach, an anterior gastric ulcer with perforation. Has fibrin pres ent around the area. Lysis of adhesions in the right upper quadrant. Patient has previous cholecyst ectomy in the past. Peritonitis present. Anesthesia: General. Drain: Nasogastric tube. Complications: None. Indication For Procedure: This is a case of a female, who comes to the ER with acute abdominal pain, diagnosed with perforated viscus, possible stomach with pneumoperitoneum. History of gastric ulcer in the past, but currently as per patient's daughter, she is not taking any medications and she is no t keeping her diet neither. She has not seen a GI in a long time neither. Patient diagnosed with an emergent life-threatening condition. We explained to her the options of laparotomy, possible resect ion, possible ostomy, possible repair of gastric perforation. The benefits, alternatives, and risks fully explained, which include, but are not limited to, infection, bleeding, damage to adjacent struc tures, anesthesia complication, abscess, continuous leakage, recurrence, NE, and even . She als o understands this might not relieve any symptoms. She might need more than one surgical interventio n. She understood, signed a consent. The OR was emergently called. Description Of Procedure: Patient was brought to the operating room, placed in supine position. Ane sthesia was achieved without complication. A time-out was called. Abdominal area was prepped and dr aped in a sterile fashion. A midline incision was made all the way down to peritoneum, which was ope [place] under direct vision. Immediately, we noticed some adhesions in the right upper quadrant from mos t likely previous cholecystectomy. So, using the LigaSure, we proceeded to remove the adhesions to g pardeep us access to the abdominal cavity. Once we were there, we noticed a distended stomach with thick ening of the stomach in the distal anterior area, prepylorus. There was fibrin present right over th e perforation. There was peritonitis present. Profuse irrigation was done of the area. The entire stomach was inspected and we only saw the perforation anteriorly. A biopsy of that perforation was d one. Before that, we inspected the rest of the abdomen with no obvious perforation site seen. So, w e directed our attention to the stomach, put an NG tube under direct visualization. After we did a b iopsy of the gastric ulcer, we proceeded to put the stitches full thickness making sure the posterior wall is not taken and the common bile duct is not taken neither. We approximated the edges in an ar ea that looked viable. After we placed that area, we brought omentum to the area and secured omentum to cover as an omental patch the area of the previous perforation and secured that in place with guillermina k 2. No leakage from the area and the rest of the stomach looked intact. Profuse irrigation was don e over the area making sure the omental patch is not disrupted. Sponge count and instrument counts w ere correct. Then, we proceeded to close the incision with #2 nylon and closed the skin with era . Sponge count and instrument counts were correct. The patient tolerated the procedure well. Amberlye nt was sent to recovery in stable condition. Hemostasis was obtained before any closure. Patient wi ll be sent to the ICU. Patient in stable condition at this moment. ALLAN/GERMAN Voice ID: [id number] Report ID: [id number]
[2019-04-11 02:00] VITALS: BMI 31.6
[2019-04-11] MEDS: MORPHINE 4 MG/ML SYR IV PRN (02:55)
[2019-04-11] MEDS: PANTOPRAZOLE INJ 80 MG in NA CHLORIDE 0.9% 250 ML IV SCH ×3 (04:00→18:32)
[2019-04-11] MEDS ORDERED: LORazepam 2 MG/ML VIAL IV PRN (04:32)
[2019-04-11] MEDS ORDERED: ONDANSETRON 4 MG/2 ML VIAL IV PRN (04:55)
[2019-04-11] MEDS: NA CHLORIDE 0.9% 1,000 ML IV SCH ×2 (05:15→17:00)
[2019-04-11 05:43] LABS: Absolute Lymphocytes (CBC) 0.4 K/uL (0.7-4.9); Basophils % 0.2 % (0-1.3); Hematocrit 34.7 % (36.0-45.0); Lymphocytes % 10.8 % (15.3-44.8); MPV 9.3 fL (7.6-11.3); RBC Red Blood Cell Count 4.22 M/uL (3.86-4.86)
[2019-04-11 05:54] LABS: Albumin 3.1 g/dL (3.4-5.0); Bilirubin Total 2.4 mg/dL (0.2-1.0); Magnesium 1.6 mg/dL (1.8-2.4); Phosphorus 3.1 mg/dL (2.5-4.9); Potassium 3.9 mmol/L (3.5-5.1); Protein, Total 6.7 g/dL (6.4-8.2)
[2019-04-11] MEDS ORDERED: MAGNESIUM SULFATE 1 gm IVPB 1 GM/100 ML BAG IV ONE (06:24)
[2019-04-11 07:05] LABS: Protime INR 1.44
[2019-04-11] MEDS: D5 0.9 NS 1,000 ML IV SCH (08:00)
[2019-04-11 08:23] LABS: Blood Morphology Comment NOTED (NOT SEEN); Platelet Estimate DECR
[2019-04-11 08:24] LABS: Anisocytosis SLIGHT
[2019-04-11] MEDS: Meropenem 1,000 MG in NA CHLORIDE 0.9% 100 ML IV SCH ×2 (08:36→20:47)
[2019-04-11] MEDS ORDERED: Meropenem 1,000 MG in NA CHLORIDE 0.9% 100 ML IV SCH (09:00)
--- NOTE | 2019-04-11 12:21 | RAD REPORT ---
EXAM DESCRIPTION: RAD - Chest Single View - 04/11/2019 12:12 pm CLINICAL HISTORY: PICC line placement COMPARISON: None. TECHNIQUE: AP portable chest image was obtained 1210 hour . FINDINGS: Left upper extremity PICC line has been placed. Tip is in the mid to distal SVC, well posi tioned. NG tube extends below the diaphragm with tip off the field of view. Low lung volumes are noted. No gross focal lung parenchymal process seen. Heart size is within normal limits for shallow inspiration portable imaging. No measurable pleural effusion and no pneumothorax. No acute bony abnormality seen. No acute aortic findings suspected. IMPRESSION: Left upper extremity PICC line in good position. Tip is in the SVC.
--- NOTE | 2019-04-11 15:19 | P.PN ---
Subjective Date of Service: 04/11/19 Primary Care Provider: Dr. Spivey Chief Complaint: Abdominal pain Patient seen and examined at bedside with RN. Chart reviewed. Case discussed with general surgery. Patient is currently status post perforated gastric ulcer repair. Doing well overall continues to be in the ICU on Protonix GGT Review of Systems 10-point ROS is otherwise unremarkable Physical Examination - Vital Signs Temperature: 100.2 F Blood Pressure: 167/77 Pulse: 101 Respirations: 45 Pulse Ox (%): 98 - Physical Exam General: Alert, In no apparent distress HEENT: Atraumatic, PERRLA, EOMI Neck: Supple, JVD not distended Respiratory: Clear to auscultation bilaterally, Normal air movement Cardiovascular: Regular rate/rhythm, Normal S1 S2 Gastrointestinal: Normal bowel sounds, Tenderness Musculoskeletal: No tenderness Integumentary: No rashes Neurological: Normal speech, Normal tone, Normal affect Lymphatics: No axilla or inguinal lymphadenopathy Other Physical/Emotional Findings: Patient currently in the operating room. I will reassess after surgery. - Studies Laboratory Data (last 24 hrs) 04/10/19 16:29: Creatinine 1.08 04/10/19 16:29: WBC 4.4, Hgb 10.7 L, Hct 33.2 L, Plt Count 80 L 04/10/19 16:29: Sodium 142, Potassium 3.8, BUN 22 H, Creatinine 1.08, Glucose 117 H, Total Bilirubin 1.5 H, AST 20, ALT 19, Alkaline Phosphatase 90, Lipase 127 Medications List Reviewed: Yes Assessment And Plan - Current Problems (Diagnosis) (1) Perforated gastric ulcer Current Visit: Yes Status: Acute Plan: Patient with abdominal pain nausea vomiting abdominal CT consistent with pneumoperitoneum and perforated gastric ulcer -general surgery was consulted in the ER. Appreciated recommendations at this time -patient is status post ex lap with perforated gastric ulcer repair POD 1. -patient currently is on IV Protonix and IV meropenem will continue that here in the hospital -NPO at this time along with pain management -will monitor patient closely here in the hospital -GI consulted. Appreciated recommendations as well Qualifiers: Gastric ulcer chronicity: acute Qualified Code(s): K25.1 - Acute gastric ulcer with perforation (2) History of gastric ulcer Current Visit: Yes Status: Acute Plan: History of gastric ulcer. Patient was on Protonix however discontinued it as notified by her primary care doctor was taking it only every other day started taking aspirin and ibuprofen which probably lead to have gastric perforation. -patient will most likely need Protonix b.i.d. 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
[2019-04-12] MEDS: ALBUTEROL 2.5 MG/3 ML NEB SOL NEB PRN ×2 (03:10→09:05)
[2019-04-12] MEDS: IPRATROPIUM BROM 0.5MG/2.5ML NEB PRN ×2 (03:10→09:05)
[2019-04-12 05:52] LABS: Absolute Lymphocytes (CBC) 0.4 K/uL (0.7-4.9); Basophils % 0.3 % (0-1.3); Hematocrit 34.2 % (36.0-45.0); Lymphocytes % 8.2 % (15.3-44.8); MPV 8.7 fL (7.6-11.3); RBC Red Blood Cell Count 4.13 M/uL (3.86-4.86)
[2019-04-12 06:01] LABS: Protime INR 1.61
[2019-04-12 06:14] LABS: Albumin 2.4 g/dL (3.4-5.0); Bilirubin Total 1.6 mg/dL (0.2-1.0); Magnesium 1.9 mg/dL (1.8-2.4); Phosphorus 1.7 mg/dL (2.5-4.9); Potassium 3.8 mmol/L (3.5-5.1); Protein, Total 5.7 g/dL (6.4-8.2)
[2019-04-12] MEDS: PANTOPRAZOLE INJ 80 MG in NA CHLORIDE 0.9% 250 ML IV SCH ×3 (07:23→17:10)
[2019-04-12] MEDS: Meropenem 1,000 MG in NA CHLORIDE 0.9% 100 ML IV SCH ×2 (09:09→20:50)
[2019-04-12] MEDS: NA CHLORIDE 0.9% 1,000 ML IV SCH ×2 (09:10→17:11)
--- NOTE | 2019-04-12 12:22 | P.PN ---
Subjective Date of Service: 04/12/19 Primary Care Provider: Dr. Spivey Chief Complaint: Abdominal pain Patient seen and examined at bedside with RN. Chart reviewed. Case discussed with general surgery. Patient is currently status post perforated gastric ulcer repair. Doing well overall continues to be in the ICU on Protonix GGT Review of Systems 10-point ROS is otherwise unremarkable Physical Examination - Vital Signs Temperature: 100.2 F Blood Pressure: 143/63 Pulse: 101 Respirations: 23 Pulse Ox (%): 97 - Physical Exam General: Alert, In no apparent distress HEENT: Atraumatic, PERRLA, EOMI Neck: Supple, JVD not distended Respiratory: Clear to auscultation bilaterally, Normal air movement Cardiovascular: Regular rate/rhythm, Normal S1 S2 Gastrointestinal: Normal bowel sounds, Tenderness Musculoskeletal: No tenderness Integumentary: No rashes Neurological: Normal speech, Normal tone, Normal affect Lymphatics: No axilla or inguinal lymphadenopathy Other Physical/Emotional Findings: Patient currently in the operating room. I will reassess after surgery. - Studies Microbiology Data (last 24 hrs): 04/10/19 17:40 Clean Catch Urine [place] Count - Final >100,000 CFU/ML. 04/10/19 17:40 Clean Catch Urine - Final Escherichia Coli Medications List Reviewed: Yes Assessment And Plan - Current Problems (Diagnosis) (1) Perforated gastric ulcer Current Visit: Yes Status: Acute Plan: Patient with abdominal pain nausea vomiting abdominal CT consistent with pneumoperitoneum and perforated gastric ulcer -general surgery was consulted in the ER. Appreciated recommendations at this time -patient is status post ex lap with perforated gastric ulcer repair POD 2. -patient currently is on IV Protonix and IV meropenem will continue that here in the hospital for 1 more day and was switched to IV Protonix b.i.d. -NPO at this time along with NG tube in place -will monitor patient closely here in the hospital -GI consulted. Appreciated recommendations as well Qualifiers: Gastric ulcer chronicity: acute Qualified Code(s): K25.1 - Acute gastric ulcer with perforation (2) History of gastric ulcer Current Visit: Yes Status: Acute Plan: History of gastric ulcer. Patient was on Protonix however discontinued it as notified by her primary care doctor was taking it only every other day started taking aspirin and ibuprofen which probably lead to have gastric perforation. -patient will most likely need Protonix b.i.d. on discharge possible Carafate as well (3) Diabetes Current Visit: Yes Status: Chronic Qualifiers: Diabetes mellitus type: type 2 Diabetes mellitus longterm insulin use: without longterm use Diabetes mellitus complication status: without complication Qualified Code(s): E11.9 - Type 2 diabetes mellitus without complications (4) Hypertension Current Visit: Yes Status: Chronic Qualifiers: Hypertension type: essential hypertension Qualified Code(s): I10 - Essential (primary) hypertension - Plan Pending clinical improvement at this time. Will follow up with general surgery recommendations at this time. Continue with IV Versed the next, IV antibiotics and NPO status with NG tube placed Discharge Plan: Home Plan to discharge in: Greater than 2 days - Code Status/Comfort Care Code Status Assessed: Yes Critical Care: Yes
[2019-04-12] MEDS: FENTANYL CITR 100 MCG/2 ML IV PRN (13:23)
[2019-04-12] MEDS ORDERED: GABAPENTIN 100 MG CAP PO PRN (17:53)
[2019-04-12] MEDS ORDERED: ROPINIROLE HCL PO SCH (21:00)
[2019-04-12] MEDS: DOXAZOSIN 2 MG TAB PO SCH (21:00)
[2019-04-12] MEDS: ATORVASTATIN 10 MG TAB PO SCH (21:00)
[2019-04-12] MEDS: CARVEDILOL 6.25 MG TAB PO SCH (21:00)
[2019-04-12] MEDS: ROPINIROLE HCL 1 MG TAB PO SCH (21:00)
[2019-04-13] MEDS: PANTOPRAZOLE INJ 80 MG in NA CHLORIDE 0.9% 250 ML IV SCH ×4 (01:26→10:00)
[2019-04-13 04:52] LABS: Absolute Lymphocytes (CBC) 0.7 K/uL (0.7-4.9); Basophils % 0.1 % (0-1.3); Hematocrit 36.6 % (36.0-45.0); Lymphocytes % 9.1 % (15.3-44.8); MPV 8.5 fL (7.6-11.3); RBC Red Blood Cell Count 4.48 M/uL (3.86-4.86)
[2019-04-13 04:56] LABS: Protime INR 1.36
[2019-04-13 05:09] LABS: Albumin 2.4 g/dL (3.4-5.0); Bilirubin Total 1.3 mg/dL (0.2-1.0); Magnesium 2.1 mg/dL (1.8-2.4); Phosphorus 1.7 mg/dL (2.5-4.9); Potassium 3.9 mmol/L (3.5-5.1); Protein, Total 6.1 g/dL (6.4-8.2)
[2019-04-13] MEDS ORDERED: POTASSIUM PHOS IN 0.9 % NACL 15 MMOL/250 ML BAG IV ONE (07:20)
[2019-04-13] MEDS: Meropenem 1,000 MG in NA CHLORIDE 0.9% 100 ML IV SCH ×2 (08:17→21:36)
[2019-04-13] MEDS: CARVEDILOL 6.25 MG TAB PO SCH ×2 (09:00→21:00)
[2019-04-13] MEDS ORDERED: HOME MED 1 EA UNK (Cyanocobalamin (Vitamin B-12) [Vitamin B12] 2,500 MCG) PO SCH (09:00)
[2019-04-13] MEDS: ASCORBIC ACID 500 MG TABLET PO SCH (09:00)
[2019-04-13] MEDS: VITAMIN D 1000 UNIT TAB PO SCH (09:00)
[2019-04-13] MEDS ORDERED: HOME MED 1 EA UNK (Cholecalciferol (Vitamin D3) [Vitamin D3] 1,000 UNIT) PO SCH (09:00)
[2019-04-13] MEDS: CYANOCOBALAMIN 1,000 MCG TAB PO SCH (09:00)
[2019-04-13] MEDS ORDERED: HYDRALAZINE HCL 20 MG/ML VIAL IV ONE (13:06)
--- NOTE | 2019-04-13 13:06 | DS ---
Diagnosis: Status post perforated gastric ulcer. Patient doing well. No complaints. Starting to a mbulate. NG tube intact. Physical Examination: Chest: Clear. Abdomen: Intact surgical site. [place] are intact. Abdomen is soft and depressible. Bowel sounds d iminished. Extremities: Good capillary refill. Laboratory Data: Blood work shows a sodium is 143. WBC count is 7.7 with hemoglobin 11.9. Plan: We going to move her from the ICU when medically stable. Continue the NG tube. Continue the Protonix. We going to start giving parenteral nutrition. HM/MODL Voice ID: [id number] Report ID: [id number]
[2019-04-13] MEDS: NA CHLORIDE 0.9% 1,000 ML IV SCH (14:00)
--- NOTE | 2019-04-13 14:29 | P.PN ---
Subjective Date of Service: 04/13/19 Primary Care Provider: Dr. Spivey Chief Complaint: Abdominal pain Patient seen and examined at bedside with RN. No family at bedside. Chart reviewed. Case discussed with general surgery. Patient is currently status post perforated gastric ulcer repair. Doing well overall continues to be in the ICU on Protonix GGT Working with PT. Pain improved. Labs stable. HDS stable. Review of Systems 10-point ROS is otherwise unremarkable Physical Examination - Vital Signs Temperature: 96.5 F Blood Pressure: 173/87 Pulse: 91 Respirations: 29 Pulse Ox (%): 95 - Physical Exam General: Alert, In no apparent distress, Oriented x3 HEENT: Atraumatic, PERRLA, EOMI Neck: Supple, JVD not distended Respiratory: Clear to auscultation bilaterally, Normal air movement Cardiovascular: Regular rate/rhythm, Normal S1 S2 Gastrointestinal: Normal bowel sounds, Tenderness Musculoskeletal: No tenderness Integumentary: No rashes Neurological: Normal speech, Normal tone, Normal affect Lymphatics: No axilla or inguinal lymphadenopathy Other Physical/Emotional Findings: Patient currently in the operating room. I will reassess after surgery. - Studies Medications List Reviewed: Yes Assessment And Plan - Current Problems (Diagnosis) (1) Perforated gastric ulcer Current Visit: Yes Status: Acute Plan: Patient with abdominal pain nausea vomiting; abdominal CT consistent with pneumoperitoneum and perforated gastric ulcer -general surgery was consulted in the ER. Appreciated recommendations -patient is status post ex lap with perforated gastric ulcer repair POD 3. -patient switched to IV protonix BID. Continue IV meropenem -NPO at this time along with NG tube in place. Started on TPN today. Most likely will start CLD wednesday/wednesday, per surgery. -will monitor patient closely here in the hospital -GI consulted. Appreciated recommendations as well Qualifiers: Gastric ulcer chronicity: acute Qualified Code(s): K25.1 - Acute gastric ulcer with perforation (2) History of gastric ulcer Current Visit: Yes Status: Acute Plan: History of gastric ulcer. Patient was on Protonix however discontinued it as notified by her primary care doctor, was taking it only every other day and then started taking aspirin and ibuprofen which probably lead her to have gastric perforation. -patient will most likely need Protonix b.i.d. 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 Conitnue to monitor closely in the ICU. if remains stable tonight, will transfer tot he floor in the am. Discharge Plan: Home Plan to discharge in: Greater than 2 days
[2019-04-13] MEDS: AA 5%/D20W/ELECTROLYTES-TPN 2,000 ML, Lipids 20% 250 ML with MULTIVITAMINS INJ 10 ML IV SCH ×3 (17:17)
[2019-04-13] MEDS ORDERED: HYDRALAZINE HCL 20 MG/ML VIAL IV PRN (19:17)
[2019-04-13] MEDS: DOXAZOSIN 2 MG TAB PO SCH (21:00)
[2019-04-13] MEDS: ATORVASTATIN 10 MG TAB PO SCH (21:00)
[2019-04-13] MEDS: ROPINIROLE HCL 1 MG TAB PO SCH (21:00)
[2019-04-13] MEDS: PANTOPRAZOLE 40 MG INJ IVP SCH (21:36)
[2019-04-14] MEDS ORDERED: D50W 25 GM/50 ML SYRINGE IV PRN (00:40)
[2019-04-14] MEDS ORDERED: GLUCAGON 1 MG/VIAL IM PRN (00:40)
[2019-04-14] MEDS: INSULIN -REGULAR HUMAN 50 UNIT/0.5 ML ML SQ SCH ×3 (01:13→17:47)
[2019-04-14] MEDS: IPRATROPIUM BROM 0.5MG/2.5ML NEB PRN (05:40)
[2019-04-14] MEDS: ALBUTEROL 2.5 MG/3 ML NEB SOL NEB PRN (05:40)
[2019-04-14 06:38] LABS: Absolute Lymphocytes (CBC) 0.5 K/uL (0.7-4.9); Basophils % 0.4 % (0-1.3); Hematocrit 34.5 % (36.0-45.0); Lymphocytes % 8.9 % (15.3-44.8); MPV 8.3 fL (7.6-11.3); RBC Red Blood Cell Count 4.25 M/uL (3.86-4.86)
[2019-04-14 06:42] LABS: Protime INR 1.32
[2019-04-14 06:53] LABS: Albumin 2.1 g/dL (3.4-5.0); Bilirubin Total 0.7 mg/dL (0.2-1.0); Magnesium 2.1 mg/dL (1.8-2.4); Phosphorus 1.2 mg/dL (2.5-4.9); Potassium 3.6 mmol/L (3.5-5.1); Protein, Total 5.5 g/dL (6.4-8.2)
[2019-04-14] MEDS: CARVEDILOL 6.25 MG TAB PO SCH ×2 (08:23→21:00)
[2019-04-14] MEDS: VITAMIN D 1000 UNIT TAB PO SCH (08:24)
[2019-04-14] MEDS: ASCORBIC ACID 500 MG TABLET PO SCH (08:24)
[2019-04-14] MEDS: CYANOCOBALAMIN 1,000 MCG TAB PO SCH (08:24)
[2019-04-14] MEDS: NA CHLORIDE 0.9% 1,000 ML IV SCH (08:37)
[2019-04-14] MEDS: Meropenem 1,000 MG in NA CHLORIDE 0.9% 100 ML IV SCH ×2 (08:37→21:11)
[2019-04-14] MEDS: PANTOPRAZOLE 40 MG INJ IVP SCH ×2 (08:38→21:11)
[2019-04-14] MEDS ORDERED: KCL 20 MEQ/100 mL IVPB 20 MEQ/100 ML BAG IV SCH (09:00)
--- NOTE | 2019-04-14 09:16 | RAD REPORT ---
EXAM DESCRIPTION: Kelsi Single View04/14/2019 6:08 am CLINICAL HISTORY: [place] COMPARISON: April 11, 2019 FINDINGS: Mild bibasilar opacities unchanged may represent mild atelectasis. Upper lobes appear clear. Heart is normal size. Nasogastric tube is present the stomach. PICC line remains place
--- NOTE | 2019-04-14 13:18 | P.PN ---
Subjective Date of Service: 04/14/19 Primary Care Provider: Dr. Spivey Chief Complaint: Abdominal pain Subjective: Improving Patient seen and examined at bedside with RN. No family at bedside. Chart reviewed. Case discussed with general surgery. Patient is currently status post perforated gastric ulcer repair. Doing well overall continues to be in the ICU on Protonix GGT Working with PT. Pain improved. Labs stable. HDS stable. Review of Systems 10-point ROS is otherwise unremarkable Physical Examination - Vital Signs Temperature: 97.0 F Blood Pressure: 150/46 Pulse: 96 Respirations: 28 Pulse Ox (%): 97 - Physical Exam General: Alert, In no apparent distress, Other (NGT in place) HEENT: Atraumatic, PERRLA, EOMI Neck: Supple, JVD not distended Respiratory: Clear to auscultation bilaterally, Normal air movement Cardiovascular: Regular rate/rhythm, Normal S1 S2 Gastrointestinal: Normal bowel sounds, No tenderness Musculoskeletal: No tenderness Integumentary: No rashes Neurological: Normal speech, Normal tone, Normal affect Lymphatics: No axilla or inguinal lymphadenopathy Other Physical/Emotional Findings: Patient currently in the operating room. I will reassess after surgery. - Studies Medications List Reviewed: Yes Assessment And Plan - Current Problems (Diagnosis) (1) Perforated gastric ulcer Current Visit: Yes Status: Acute Plan: Patient with abdominal pain nausea vomiting; abdominal CT consistent with pneumoperitoneum and perforated gastric ulcer -general surgery was consulted in the ER. Appreciated recommendations -patient is status post ex lap with perforated gastric ulcer repair POD 4. -patient switched to IV protonix BID. Continue IV meropenem -NPO at this time along with NG tube in place. Started on TPN today. Most likely will start CLD wednesday/wednesday, per surgery. -will monitor patient closely here in the hospital -GI consulted. Appreciated recommendations as well Qualifiers: Gastric ulcer chronicity: acute Qualified Code(s): K25.1 - Acute gastric ulcer with perforation (2) History of gastric ulcer Current Visit: Yes Status: Acute Plan: History of gastric ulcer. Patient was on Protonix however discontinued it as notified by her primary care doctor, was taking it only every other day and then started taking aspirin and ibuprofen which probably lead her to have gastric perforation. -patient will most likely need Protonix b.i.d. 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 Pending clinical improvement at this time.
[2019-04-14] MEDS: AA 5%/D20W/ELECTROLYTES-TPN 2,000 ML, Lipids 20% 250 ML with MULTIVITAMINS INJ 10 ML IV SCH ×3 (17:23)
[2019-04-14] MEDS: ROPINIROLE HCL 1 MG TAB PO SCH (21:00)
[2019-04-14] MEDS: ATORVASTATIN 10 MG TAB PO SCH (21:00)
[2019-04-14] MEDS: DOXAZOSIN 2 MG TAB PO SCH (21:00)
[2019-04-15] MEDS: INSULIN -REGULAR HUMAN 50 UNIT/0.5 ML ML SQ SCH ×6 (01:04→18:00)
[2019-04-15 05:53] LABS: Absolute Lymphocytes (CBC) 0.6 K/uL (0.7-4.9); Basophils % 0.4 % (0-1.3); Lymphocytes % 12.6 % (15.3-44.8); MPV 7.9 fL (7.6-11.3); RBC Red Blood Cell Count 4.18 M/uL (3.86-4.86)
[2019-04-15] MEDS: NA CHLORIDE 0.9% 1,000 ML IV SCH (06:04)
[2019-04-15 06:07] LABS: Bilirubin Total 0.8 mg/dL (0.2-1.0); Phosphorus 1.5 mg/dL (2.5-4.9); Potassium 3.6 mmol/L (3.5-5.1); Protein, Total 5.6 g/dL (6.4-8.2)
[2019-04-15] MEDS: CARVEDILOL 6.25 MG TAB PO SCH ×2 (07:42→21:00)
[2019-04-15] MEDS: VITAMIN D 1000 UNIT TAB PO SCH (07:43)
[2019-04-15] MEDS: ASCORBIC ACID 500 MG TABLET PO SCH (07:43)
[2019-04-15] MEDS: CYANOCOBALAMIN 1,000 MCG TAB PO SCH (07:43)
[2019-04-15] MEDS ORDERED: POTASSIUM PHOS IN 0.9 % NACL 15 MMOL/250 ML BAG IV ONE (09:00)
--- NOTE | 2019-04-15 10:40 | P.PN ---
Subjective Date of Service: 04/15/19 (Hospitalist) Primary Care Provider: Dr. Spivey Chief Complaint: Abdominal pain Patient's condition is stable currently NPO TPN seen by Dr. Solis continue with NPO patient 1 some ice chips Review of Systems General: Weakness Gastrointestinal: Abdominal Pain (Abdominal discomfort) Physical Examination - Vital Signs Temperature: 97.7 F Blood Pressure: 170/79 Pulse: 94 Respirations: 18 Pulse Ox (%): 95 - Physical Exam General: Alert, Oriented x3, Mild distress Neck: Supple Respiratory: Clear to auscultation bilaterally Cardiovascular: No edema, Regular rate/rhythm Other Physical/Emotional Findings: Patient currently in the operating room. I will reassess after surgery. - Studies Medications List Reviewed: Yes Assessment & Plan - Problems (Diagnosis) (1) Perforated gastric ulcer Current Visit: Yes Status: Acute Plan: Patient is status post perforated gastric ulcer slowly improving on IV parenteral nutrition mildly hypernatremic vital signs stable urine culture shows E. coli patient is on meropenem Dc IV fluids Lovenox for DVT prophylaxis Qualifiers: Gastric ulcer chronicity: acute Qualified Code(s): K25.1 - Acute gastric ulcer with perforation (2) Hypertension Current Visit: No Status: Chronic Plan: Blood pressure elevated clonidine patch Qualifiers: Hypertension type: essential hypertension Qualified Code(s): I10 - Essential (primary) hypertension
[2019-04-15] MEDS: Meropenem 1,000 MG in NA CHLORIDE 0.9% 100 ML IV SCH ×2 (11:15→20:59)
[2019-04-15] MEDS: ENOXAPARIN 40 MG/0.4 ML SQ SCH (11:16)
[2019-04-15] MEDS: PANTOPRAZOLE 40 MG INJ IVP SCH ×2 (11:16→21:15)
[2019-04-15] MEDS ORDERED: CLONIDINE 0.1 MG/PATCH TD SCH (12:00)
[2019-04-15] MEDS: AA 5%/D20W/ELECTROLYTES-TPN 2,000 ML, Lipids 20% 250 ML with MULTIVITAMINS INJ 10 ML IV SCH ×3 (18:04)
[2019-04-15] MEDS: ATORVASTATIN 10 MG TAB PO SCH (21:00)
[2019-04-15] MEDS: DOXAZOSIN 2 MG TAB PO SCH (21:00)
[2019-04-15] MEDS: ROPINIROLE HCL 1 MG TAB PO SCH (21:00)
[2019-04-15] MEDS: IPRATROPIUM BROM 0.5MG/2.5ML NEB PRN (21:17)
[2019-04-15] MEDS: ALBUTEROL 2.5 MG/3 ML NEB SOL NEB PRN (21:17)
[2019-04-16] MEDS: INSULIN -REGULAR HUMAN 50 UNIT/0.5 ML ML SQ SCH ×5 (00:31→18:16)
[2019-04-16 05:05] LABS: Absolute Lymphocytes (CBC) 0.5 K/uL (0.7-4.9); Basophils % 0.4 % (0-1.3); Lymphocytes % 12.1 % (15.3-44.8); MPV 8.1 fL (7.6-11.3); RBC Red Blood Cell Count 4.05 M/uL (3.86-4.86)
[2019-04-16 05:22] LABS: Bilirubin Total 1.1 mg/dL (0.2-1.0); Potassium 3.6 mmol/L (3.5-5.1); Protein, Total 5.5 g/dL (6.4-8.2)
--- NOTE | 2019-04-16 08:37 | P.PN ---
Subjective Date of Service: 04/16/19 (Hospitalist) Primary Care Provider: Dr. Spivey Chief Complaint: Status post perforated gastric ulcer Patient states that she is doing better abdominal discomfort is improved passing gas for doing some iced chips Review of Systems General: Weakness Gastrointestinal: Abdominal Pain Physical Examination - Vital Signs Temperature: 97.7 F Blood Pressure: 155/69 Pulse: 95 Respirations: 20 Pulse Ox (%): 94 - Physical Exam General: Alert, In no apparent distress, Oriented x3 Respiratory: Clear to auscultation bilaterally Cardiovascular: No edema, Regular rate/rhythm, Normal S1 S2 Musculoskeletal: No clubbing, No swelling Other Physical/Emotional Findings: Patient currently in the operating room. I will reassess after surgery. - Studies Medications List Reviewed: Yes Assessment & Plan - Problems (Diagnosis) (1) Perforated gastric ulcer Current Visit: Yes Status: Acute Plan: Patient is doing much better passing gas will discuss with Dr. Solis regarding advancing her diet. She is currently on TPN Qualifiers: Gastric ulcer chronicity: acute Qualified Code(s): K25.1 - Acute gastric ulcer with perforation (2) Hypertension Current Visit: No Status: Chronic Plan: Patient's blood pressure is better controlled on clonidine patch Qualifiers: Hypertension type: essential hypertension Qualified Code(s): I10 - Essential (primary) hypertension
[2019-04-16] MEDS: Meropenem 1,000 MG in NA CHLORIDE 0.9% 100 ML IV SCH ×2 (08:57→21:31)
[2019-04-16] MEDS: SODIUM CHLORIDE 0.9% 10ML INJ IV PRN (08:59)
[2019-04-16] MEDS: CARVEDILOL 6.25 MG TAB PO SCH ×2 (08:59→21:00)
[2019-04-16] MEDS: PANTOPRAZOLE 40 MG INJ IVP SCH ×2 (08:59→21:36)
[2019-04-16] MEDS: ENOXAPARIN 40 MG/0.4 ML SQ SCH ×2 (09:00→15:03)
[2019-04-16] MEDS: CYANOCOBALAMIN 1,000 MCG TAB PO SCH (09:00)
[2019-04-16] MEDS: ASCORBIC ACID 500 MG TABLET PO SCH (09:00)
[2019-04-16] MEDS ORDERED: POTASSIUM PHOS 20 MM in NA CHLORIDE 0.9% 500 ML IV ONE (09:00)
[2019-04-16] MEDS: VITAMIN D 1000 UNIT TAB PO SCH (09:00)
[2019-04-16] MEDS ORDERED: POTASSIUM PHOS IN 0.9 % NACL 15 MMOL/250 ML BAG IV ONE (11:00)
[2019-04-16] MEDS ORDERED: NA CHLORIDE 0.9% 250 ML ONE (12:33)
[2019-04-16] MEDS: FENTANYL CITR 100 MCG/2 ML IV PRN (14:24)
[2019-04-16] MEDS: AA 5%/D20W/ELECTROLYTES-TPN 2,000 ML, Lipids 20% 250 ML with MULTIVITAMINS INJ 10 ML IV SCH ×3 (17:35)
[2019-04-16] MEDS: ALBUTEROL 2.5 MG/3 ML NEB SOL NEB PRN (17:45)
[2019-04-16] MEDS: IPRATROPIUM BROM 0.5MG/2.5ML NEB PRN (17:45)
[2019-04-16] MEDS: ATORVASTATIN 10 MG TAB PO SCH (21:00)
[2019-04-16] MEDS: DOXAZOSIN 2 MG TAB PO SCH (21:00)
[2019-04-16] MEDS: ROPINIROLE HCL 1 MG TAB PO SCH (21:00)
[2019-04-17] MEDS: INSULIN -REGULAR HUMAN 50 UNIT/0.5 ML ML SQ SCH ×5 (00:45→23:06)
[2019-04-17 07:17] LABS: Phosphorus 2.8 mg/dL (2.5-4.9); Potassium 3.8 mmol/L (3.5-5.1)
[2019-04-17] MEDS: Meropenem 1,000 MG in NA CHLORIDE 0.9% 100 ML IV SCH ×2 (08:24→20:23)
[2019-04-17] MEDS: ENOXAPARIN 40 MG/0.4 ML SQ SCH (08:25)
[2019-04-17] MEDS: PANTOPRAZOLE 40 MG INJ IVP SCH ×2 (08:25→20:23)
[2019-04-17] MEDS: VITAMIN D 1000 UNIT TAB PO SCH (08:25)
[2019-04-17] MEDS: CARVEDILOL 6.25 MG TAB PO SCH ×2 (08:25→20:24)
[2019-04-17] MEDS: ASCORBIC ACID 500 MG TABLET PO SCH (08:26)
[2019-04-17] MEDS: CYANOCOBALAMIN 1,000 MCG TAB PO SCH (08:26)
--- NOTE | 2019-04-17 16:01 | P.PN ---
Subjective Date of Service: 04/17/19 Primary Care Provider: Dr. Spivey Chief Complaint: Status post perforated gastric ulcer Patient seen and examined at bedside with RN. Chart reviewed. Case discussed with general surgery. Patient is currently status post perforated gastric ulcer repair. Doing well overall NG tube had been clamped since yesterday. No nausea no vomiting at this time Review of Systems 10-point ROS is otherwise unremarkable Physical Examination - Vital Signs Temperature: 97.3 F Blood Pressure: 121/58 Pulse: 90 Respirations: 20 Pulse Ox (%): 95 - Physical Exam General: Alert, In no apparent distress HEENT: Atraumatic, PERRLA, EOMI Neck: Supple, JVD not distended Respiratory: Clear to auscultation bilaterally, Normal air movement Cardiovascular: Regular rate/rhythm, Normal S1 S2 Gastrointestinal: Normal bowel sounds, No tenderness Musculoskeletal: No tenderness Integumentary: No rashes Neurological: Normal speech, Normal tone, Normal affect Lymphatics: No axilla or inguinal lymphadenopathy Other Physical/Emotional Findings: Patient currently in the operating room. I will reassess after surgery. - Studies Medications List Reviewed: Yes Assessment And Plan - Current Problems (Diagnosis) (1) Perforated gastric ulcer Current Visit: Yes Status: Acute Plan: Patient with abdominal pain nausea vomiting abdominal CT consistent with pneumoperitoneum and perforated gastric ulcer -general surgery was consulted in the ER. Appreciated recommendations at this time -patient is status post ex lap with perforated gastric ulcer repair POD 7. -patient currently is on IV. Protonix and IV meropenem. -NPO at this time along with NG tube in place -will monitor patient closely here in the hospital -GI consulted. Appreciated recommendations as well Qualifiers: Gastric ulcer chronicity: acute Qualified Code(s): K25.1 - Acute gastric ulcer with perforation (2) History of gastric ulcer Current Visit: Yes Status: Acute Plan: History of gastric ulcer. Patient was on Protonix however discontinued it as notified by her primary care doctor was taking it only every other day started taking aspirin and ibuprofen which probably lead to have gastric perforation. -patient will most likely need Protonix b.i.d. on discharge possible Carafate as well (3) Diabetes Current Visit: Yes Status: Chronic Qualifiers: Diabetes mellitus type: type 2 Diabetes mellitus manager intermediate insulin use: without manager intermediate use Diabetes mellitus complication status: without complication Qualified Code(s): E11.9 - Type 2 diabetes mellitus without complications (4) Hypertension Current Visit: No Status: Chronic Qualifiers: Hypertension type: essential hypertension Qualified Code(s): I10 - Essential (primary) hypertension - Plan Pending clinical improvement at this time. Will follow up with general surgery recommendations at this time. NG tube has been clamped at this time. If okay with surgery remove NG tube in advance diet to clear liquid diet. However will follow up with general surgery regarding Further recommendations Discharge Plan: Home Plan to discharge in: Greater than 2 days - Code Status/Comfort Care Code Status Assessed: Yes Critical Care: No
[2019-04-17] MEDS: AA 5%/D20W/ELECTROLYTES-TPN 2,000 ML, Lipids 20% 250 ML with MULTIVITAMINS INJ 10 ML IV SCH ×3 (17:46)
[2019-04-17] MEDS: DOXAZOSIN 2 MG TAB PO SCH (20:23)
[2019-04-17] MEDS: ROPINIROLE HCL 1 MG TAB PO SCH (20:24)
[2019-04-17] MEDS: ATORVASTATIN 10 MG TAB PO SCH (20:25)
[2019-04-18] MEDS: INSULIN -REGULAR HUMAN 50 UNIT/0.5 ML ML SQ SCH ×3 (06:23→17:43)
[2019-04-18] MEDS: IPRATROPIUM BROM 0.5MG/2.5ML NEB PRN (08:05)
[2019-04-18] MEDS: ALBUTEROL 2.5 MG/3 ML NEB SOL NEB PRN (08:05)
[2019-04-18] MEDS: VITAMIN D 1000 UNIT TAB PO SCH (09:52)
[2019-04-18] MEDS: CYANOCOBALAMIN 1,000 MCG TAB PO SCH (09:52)
[2019-04-18] MEDS: ASCORBIC ACID 500 MG TABLET PO SCH (09:52)
[2019-04-18] MEDS: ENOXAPARIN 40 MG/0.4 ML SQ SCH (09:52)
[2019-04-18] MEDS: CARVEDILOL 6.25 MG TAB PO SCH ×2 (09:52→20:13)
[2019-04-18] MEDS: Meropenem 1,000 MG in NA CHLORIDE 0.9% 100 ML IV SCH ×2 (09:52→20:12)
[2019-04-18] MEDS: PANTOPRAZOLE 40 MG INJ IVP SCH ×2 (09:53→20:12)
--- NOTE | 2019-04-18 13:14 | P.PN ---
Subjective Date of Service: 04/18/19 Primary Care Provider: Dr. Spivey Chief Complaint: Status post perforated gastric ulcer Patient seen and examined at bedside with RN. Chart reviewed. Case discussed with general surgery. Patient is currently status post perforated gastric ulcer repair. Doing well overall NG tube had been clamped since yesterday. No nausea no vomiting at this time Review of Systems 10-point ROS is otherwise unremarkable Physical Examination - Vital Signs Temperature: 97.7 F Blood Pressure: 128/62 Pulse: 81 Respirations: 19 Pulse Ox (%): 95 - Physical Exam General: Alert, In no apparent distress HEENT: Atraumatic, PERRLA, EOMI Neck: Supple, JVD not distended Respiratory: Clear to auscultation bilaterally, Normal air movement Cardiovascular: Regular rate/rhythm, Normal S1 S2 Gastrointestinal: Normal bowel sounds, No tenderness Musculoskeletal: No tenderness Integumentary: No rashes Neurological: Normal speech, Normal tone, Normal affect Lymphatics: No axilla or inguinal lymphadenopathy Other Physical/Emotional Findings: Patient currently in the operating room. I will reassess after surgery. - Studies Medications List Reviewed: Yes Assessment And Plan - Current Problems (Diagnosis) (1) Perforated gastric ulcer Current Visit: Yes Status: Acute Plan: Patient with abdominal pain nausea vomiting abdominal CT consistent with pneumoperitoneum and perforated gastric ulcer -general surgery was consulted in the ER. Appreciated recommendations at this time -patient is status post ex lap with perforated gastric ulcer repair POD 8. -patient currently is on IV Protonix and IV meropenem. -NPO at this time along with NG tube in place -will monitor patient closely here in the hospital -GI consulted. Appreciated recommendations as well Qualifiers: Gastric ulcer chronicity: acute Qualified Code(s): K25.1 - Acute gastric ulcer with perforation (2) History of gastric ulcer Current Visit: Yes Status: Acute Plan: History of gastric ulcer. Patient was on Protonix however discontinued it as notified by her primary care doctor was taking it only every other day started taking aspirin and ibuprofen which probably lead to have gastric perforation. -patient will most likely need Protonix b.i.d. on discharge possible Carafate as well (3) Diabetes Current Visit: Yes Status: Chronic Qualifiers: Diabetes mellitus type: type 2 Diabetes mellitus skilled nursing insulin use: without meterman use Diabetes mellitus complication status: without complication Qualified Code(s): E11.9 - Type 2 diabetes mellitus without complications (4) Hypertension Current Visit: No Status: Chronic Qualifiers: Hypertension type: essential hypertension Qualified Code(s): I10 - Essential (primary) hypertension - Plan Pending clinical improvement at this time. Will follow up with general surgery recommendations at this time. NG tube has been clamped at this time. If okay with surgery remove NG tube and advance diet to clear liquid diet. However will follow up with general surgery regarding Further recommendations Discharge Plan: Home Plan to discharge in: Greater than 2 days - Code Status/Comfort Care Code Status Assessed: Yes Critical Care: No
[2019-04-18] MEDS ORDERED: AA 4.25%/D10W/ELECTROLYTES 2,000 ML, Lipids 20% 250 ML with MULTIVITAMINS INJ 10 ML IV SCH ×3 (17:00)
[2019-04-18] MEDS: DOXAZOSIN 2 MG TAB PO SCH (20:12)
[2019-04-18] MEDS: ATORVASTATIN 10 MG TAB PO SCH (20:12)
[2019-04-18] MEDS: ROPINIROLE HCL 1 MG TAB PO SCH (20:13)
[2019-04-18 21:14] VITALS: O2SAT 95
[2019-04-19] MEDS: Meropenem 1,000 MG in NA CHLORIDE 0.9% 100 ML IV SCH (08:18)
[2019-04-19] MEDS: INSULIN -REGULAR HUMAN 50 UNIT/0.5 ML ML SQ SCH ×2 (08:18→12:00)
[2019-04-19] MEDS: ENOXAPARIN 40 MG/0.4 ML SQ SCH (08:19)
[2019-04-19] MEDS: CARVEDILOL 6.25 MG TAB PO SCH (08:19)
[2019-04-19] MEDS: VITAMIN D 1000 UNIT TAB PO SCH (08:20)
[2019-04-19] MEDS: ASCORBIC ACID 500 MG TABLET PO SCH (08:20)
[2019-04-19] MEDS: CYANOCOBALAMIN 1,000 MCG TAB PO SCH (08:20)
[2019-04-19] MEDS: SODIUM CHLORIDE 0.9% 10ML INJ IV PRN (08:21)
[2019-04-19 08:25] VITALS: BP 115/57
[2019-04-19] MEDS: PANTOPRAZOLE 40 MG INJ IVP SCH (08:25)
[2019-04-19 09:54] VITALS: TEMP 97.4
[2019-04-19] MEDS: IPRATROPIUM BROM 0.5MG/2.5ML NEB PRN (10:27)
[2019-04-19] MEDS: ALBUTEROL 2.5 MG/3 ML NEB SOL NEB PRN (10:27)
--- NOTE | 2019-04-19 17:30 | P.DS ---
Admission Date: 04/10/19 Discharge Date: 04/19/19 Primary Care Provider: Dr. Spivey Disposition: ROUTINE DISCHARGE Discharge Condition: GOOD Reason for Admission: Status post perforated gastric ulcer Consultations: GI , Gen Surgery - Problems (1) Perforated gastric ulcer Status: Acute Qualifiers: Gastric ulcer chronicity: acute Qualified Code(s): K25.1 - Acute gastric ulcer with perforation (2) History of gastric ulcer Status: Acute (3) Diabetes Status: Chronic Qualifiers: Diabetes mellitus type: type 2 Diabetes mellitus custodial insulin use: without custodial use Diabetes mellitus complication status: without complication Qualified Code(s): E11.9 - Type 2 diabetes mellitus without complications (4) Hypertension Status: Chronic Qualifiers: Hypertension type: essential hypertension Qualified Code(s): I10 - Essential (primary) hypertension Brief History of Present Illness: 83-year-old female presented to the emergency room with abdominal pain. Initial workup included CBC, CMP and CT scan. White count 4.0, hemoglobin 10.7. Platelet count of 80. Sodium 142, potassium 3.8. BUN of 22, creatinine 1.803 with a GFR 49. Glucose 117. Calcium 7.9. bilirubin 1.8. Urine showed possible UTI. CT scan revealed inflammatory changes in the right upper quadrant with significant thickening to the distal stomach wall. Small extraluminar air collection seen to the distal stomach most likely perforated gastric ulcer. Patient was initially seen by hospitalist Dr. Del Real. She reported that patient has been taking NSAIDs. Patient was immediately sent to surgery w Dr. Solis. Preop diagnosis peritonitis, pneumoperitoneum and perforated viscus likely gastric ulcer. Hospital Course: Overall during the hospital stay patient remained stable Patient was initially admitted to the hospital for perforated gastric ulcer. Patient most likely had perforated gastric ulcer because of over use of aspirin and ibuprofen. General surgery was consulted GI was consulted as well. Patient was taken to the OR emergently. Patient had perforated gastric select Care and was kept on NG-tube year in the hospital. Patient was started on IV Protonix strip along with Carafate as well while here in the hospital. Patient was advanced slowly with her diet after her NG tube was clamped after 4-5 days of initial surgery. Patient did well overall. And then was transferred right to the regular floor. Patient had physical therapy consulted and was doing well overall. Initially patient was referred over to rehab however since she was doing well rehab was declined and patient was then discharged home under stable condition. Patient was given prescription for Protonix and Carafate to take home. Vital Signs/Physical Exam: Temp Pulse Resp BP Pulse Ox 97.4 F 80 20 115/57 L 95 04/19/19 08:00 04/19/19 08:19 04/19/19 08:00 04/19/19 08:19 04/19/19 08:00 General: Alert, In no apparent distress HEENT: Atraumatic, PERRLA, EOMI Neck: Supple, JVD not distended Respiratory: Clear to auscultation bilaterally, Normal air movement Cardiovascular: Regular rate/rhythm, Normal S1 S2 Gastrointestinal: Normal bowel sounds, No tenderness Musculoskeletal: No tenderness Integumentary: No rashes Neurological: Normal speech, Normal tone, Normal affect Lymphatics: No axilla or inguinal lymphadenopathy Other Physical/Emotional Findings: Patient currently in the operating room. I will reassess after surgery. Laboratory Data at Discharge: WBC 4.1 K/uL (4.3-10.9) L D 04/16/19 04:42 Hgb 10.6 g/dL (12.0-15.0) L 04/16/19 04:42 Hct 33.0 % (36.0-45.0) L 04/16/19 04:42 Plt Count 96 K/uL (152-406) L 04/16/19 04:42 PT 15.4 SECONDS (9.5-12.5) H 04/14/19 05:05 INR 1.32 04/14/19 05:05 APTT 25.6 SECONDS (24.3-36.9) 04/14/19 05:05 Sodium 146 mmol/L (136-145) H 04/17/19 06:39 Potassium 3.8 mmol/L (3.5-5.1) 04/17/19 06:39 BUN 31 mg/dL (7-18) H 04/17/19 06:39 Creatinine 0.76 mg/dL (0.55-1.3) 04/17/19 06:39 Glucose 249 mg/dL (74-106) H 04/17/19 06:39 Phosphorus 2.8 mg/dL (2.5-4.9) 04/17/19 06:39 Magnesium 2.0 mg/dL (1.8-2.4) 04/15/19 05:26 Total Bilirubin 1.1 mg/dL (0.2-1.0) H 04/16/19 04:42 AST 110 U/L (15-37) H 04/16/19 04:42 ALT 59 U/L (12-78) 04/16/19 04:42 Alkaline Phosphatase 122 U/L (45-117) H 04/16/19 04:42 Lipase 127 U/L (73-393) 04/10/19 16:29 Home Medications: Alendronate Sodium 1 tab PO SEECOM 04/11/19 Ascorbic Acid [Vitamin C*] 500 mg PO DAILY 04/11/19 Aspirin [Aspirin EC 81 MG] 81 mg PO DAILY 04/11/19 Atorvastatin Calcium [Lipitor*] 10 mg PO BEDTIME 04/11/19 Carvedilol [Coreg*] 1 tab PO BID 04/11/19 Cholecalciferol (Vitamin D3) [Vitamin D3] 1,000 unit PO DAILY 04/11/19 Cyanocobalamin (Vitamin B-12) [Vitamin B12] 2,500 mcg PO DAILY 04/11/19 Docosahexanoic AC/Epa [Fish Oil 1,000 MG*] 1 cap PO BID 04/11/19 Doxazosin Mesylate 1 tab PO BEDTIME 04/11/19 Gabapentin 100 mg PO DAILY PRN 04/11/19 Glimepiride 1 tab PO DAILY 04/11/19 Metformin HCl 1 tab PO BID 04/11/19 Mv-Min/FA/Vit K/Lycop/Lut/Zeax [Ocuvite Eye Plus Multi Tablet] 1 tab PO BID Nitroglycerin [Nitrostat] 0.3 mg SL [id number] PRN 04/11/19 Ropinirole HCl 1 tab PO BEDTIME 04/11/19 Pantoprazole Sodium [Protonix] 40 mg PO BID #60 tablet. 04/19/19 Sucralfate [Carafate -Tab] 1 gm PO ACHS #60 tab 04/19/19 New Medications: Pantoprazole Sodium [Protonix] 40 mg PO BID #60 tablet. Sucralfate [Carafate -Tab] 1 gm PO ACHS #60 tab Patient Discharge Instructions: may take a shower with dressing ff. No heavy lifting <20lb Diet: NO ETOH or spicy food Activity: No lifting more than 10 lbs Followup: Mayco Solis MD [ACTIVE - CAN ADMIT] - 1 Week Butch Coon MD [ACTIVE - CAN ADMIT] -
== END 2019-04-19 14:05 | disposition home health service (06) | DRG 326 ==
LOC: ER 14:22 → ERHOLD 17:57 → 3RD-ICU 19:54 → 2ND 04-14 14:20
PROVIDERS: ADMIT Family Medicine; ATTEND Family Medicine
PROC: 0DNW0ZZ Release Peritoneum, Open Approach (ICD-10-PCS; 2019-04-10)
PROC: 0DU607Z Supplement Stomach with Autologous Tissue Substitute, Open Approach (ICD-10-PCS; 2019-04-10)
PROC: 0DB60ZX Excision of Stomach, Open Approach, Diagnostic (ICD-10-PCS; 2019-04-10)
PROC: 0DQ60ZZ Repair Stomach, Open Approach (ICD-10-PCS; principal; 2019-04-10 19:00)
PROC: 02HV33Z Insertion of Infusion Device into Superior Vena Cava, Percutaneous Approach (ICD-10-PCS; 2019-04-11)
PROC: 3E0436Z Introduction of Nutritional Substance into Central Vein, Percutaneous Approach (ICD-10-PCS; 2019-04-11)
DX: K25.1 Acute gastric ulcer with perforation (principal); K65.9 Peritonitis, unspecified; N39.0 Urinary tract infection, site not specified; D64.9 Anemia, unspecified; D69.6 Thrombocytopenia, unspecified; E11.9 Type 2 diabetes mellitus without complications; I10 Essential (primary) hypertension; G25.81 Restless legs syndrome
CPT/HCPCS: 36415; 71045; 74176; 76377; 80048; 80053; 80076; 81003; 81015; 82962; 83690; 83735; 84100; 85025; 85610; 85730; 87040; 87077; 87086; 87088; 87186; 88305; 96361; 96365; 96375; 97110; 97116; 97163; 97530; 99251; 99285; C9113; J0360; J1650; J2185; J2250; J2270; J2405; J2704; J2710; J3010; J3475; J7030

== ENCOUNTER 2019-11-09 05:16 | Inpatient (IN) | payer OTHER ==
--- OUTSIDE RECORDS SUMMARY | 2019-11-09 05:18 | XMS REPORT ---
:1935 [facility] [address] [place] [address] Dr. Castro [address] [place] [id number] Care Team Providers Name Role Phone Unavailable Unavailable Unavailable Problems This patient has no known problems. Allergies, Adverse Reactions, Alerts This patient has no known allergies or adverse reactions. Medications This patient has no known medications. Encounters Start End Encounter Admission Attending Care Care Encounter Date/Time Date/Time Type Type Clinicians Facility Department ID 2019-07-14 2019-07-14 Outpatient BL [id number] 08:15:00 08:15:00
[2019-11-09] MEDS ORDERED: RSI MEDICATION KIT IV ONE (05:21)
[2019-11-09] MEDS ORDERED: propofoL 1,000 MG/100 ML VIAL IV ONE (05:26)
[2019-11-09] MEDS ORDERED: D50W 25 GM/50 ML SYRINGE/VIAL IV ONE (05:36)
[2019-11-09] MEDS ORDERED: MIDAZOLAM HCL 2 MG/2 ML INJ ONE ×2 (05:46→07:03)
[2019-11-09] MEDS ORDERED: ACETAMINOPHEN 650MG/RECT SUPP PR ONE (06:04)
[2019-11-09 06:10] LABS: Absolute Lymphocytes (CBC) 0.3 K/uL (0.7-4.9); Basophils % 0.1 % (0-1.3); Hematocrit 38.6 % (36.0-45.0); Lymphocytes % 14.1 % (15.3-44.8); MPV 8.4 fL (7.6-11.3); RBC Red Blood Cell Count 4.26 M/uL (3.86-4.86)
[2019-11-09 06:13] LABS: Protime INR 1.18
[2019-11-09 06:22] LABS: ALT/SGPT 55 U/L (12-78); AST/SGOT 57 U/L (15-37); Albumin 3.4 g/dL (3.4-5.0); Alkaline Phosphatase 101 U/L (45-117); BUN Blood Urea Nitrogen 37 mg/dL (7-18); Bicarbonate 24 mmol/L (21-32); Bilirubin Direct 0.6 mg/dL (0-0.2); Bilirubin Total 1.1 mg/dL (0.2-1.0); CKMB Creatine Kinase MB < 1.0 ng/mL (0.3-3.6); Creatine Phosphokinase 49 U/L (26-192); Glucose Level 71 mg/dL (74-106); Lipase 199 U/L (73-393); Magnesium 1.9 mg/dL (1.8-2.4); NT PRO-BNP 5999 pg/mL (<450); Potassium 3.9 mmol/L (3.5-5.1); Protein, Total 6.5 g/dL (6.4-8.2); Sodium Level 144 mmol/L (136-145); Troponin (Emerg Dept Use Only) < 0.02 ng/mL (0.0-0.045)
[2019-11-09] MEDS ORDERED: NA CHLORIDE 0.9% 250 ML ONE ×2 (06:57→08:14)
[2019-11-09] MEDS ORDERED: AZITHROMYCIN 500 MG INJ IVPB ONE (06:57)
[2019-11-09] MEDS ORDERED: NA CHLORIDE 0.9% 1,000 ML ONE (07:03)
--- NOTE | 2019-11-09 07:03 | ER ---
Nurse's Notes [facility] Name: Cindy Herman Age: 84 yrs Sex: Female : 1935 Arrival Date: 11/09/2019 Time: 05:19 Bed 3 Private MD: Diagnosis: Hemoptysis;Other pneumonia, unspecified organism;Thrombocytopenia, unspecified Presentation: 11/09 05:20 Presenting complaint: EMS states: they were toned out for report of pt with dyspnea and bb coughing up carlos blood since approx 0400 this morning on their arrival pt was hypoxic with labored breathing and tachypnea pt had carlos blood. Transition of care: patient was not received from another setting of care. Onset of symptoms was November 09, 2019. Risk Assessment: Do you want to hurt yourself or someone else? Unable to obtain. Initial Sepsis Screen: Does the patient meet any 2 criteria? RR > 20 per min. Altered Mental Status. Yes Does the patient have a suspected source of infection? Yes: Productive cough/pneumonia If YES to both, name of provider notified: Acosta Mckay MD Care prior to arrival: IV initiated. 22 GA, in the right antecubital area, Glucose check: 78 Med neb given. Oxygen administered. via a non-rebreather mask. 05:20 Method Of Arrival: EMS: [facility] bb 05:20 Acuity: FLAVIO 1 bb Historical: - Allergies: 05:36 cipro-can't take with Nitro; bb 05:36 Lisinopril; bb 05:36 Macrobid; bb - Home Meds: 05:47 alendronate 70 mg Oral tab 1 tab once wkly [Active]; aspirin 81 mg Oral TbEC 1 tab once bb daily [Active]; atorvastatin 10 mg Oral tab 1 tab once daily [Active]; carvedilol 6.25 mg Oral tab 1 tab 2 times per day [Active]; metformin 1,000 mg Oral tab 1 tab 2 times per day [Active]; glimepiride 2 mg Oral tab 1 tab once daily [Active]; gabapentin 100 mg Oral cap [Active]; doxazosin 2 mg Oral tab 1 tab once daily [Active]; Nitrostat 0.3 mg SL subl 1 tab every 5 minutes [Active]; ropinirole 5 mg Oral tab nightly [Active]; Fish Oil 1,000 mg Oral cap [Active]; Ocuvite [id number] nh-dhuv-rg-mg Oral cap [Active]; Vitamin B-12 1,000 mcg Oral tab [Active]; Vitamin C 500 mg Oral cpER [Active]; Vitamin D-3 with Aloe 120-1,000-10 mg-unit-mg Oral tab [Active]; - PMHx: 05:36 Diabetes - NIDDM; Hypertension; Kidney stones; bb - PSHx: 05:36 Tonsillectomy; Carpal Tunnel Repair; cataracts; heart valve replacement; Tubal ligation;bb - Immunization history:: Adult Immunizations unknown. - Coronavirus screen:: The patient has NOT traveled to [place] in the past 14 days. Proceed with normal triage process as indicated. - Social history:: Smoking status: unknown. - Ebola Screening: : No symptoms or risks identified at this time. Screenin:43 Abuse screen: Denies threats or abuse. Nutritional screening: No deficits noted. bb Tuberculosis screening: No symptoms or risk factors identified. Fall Risk Total Granados Fall Scale indicates High Risk Score (45 or more points). Fall prevention measures have been instituted. Side Rails Up X 2 Placed Close to Nursing Station Frequent Obs/Assessments Occuring. Assessment: 05:20 General: Appears distressed, Behavior is flat, listless. Pain: Unable to use pain aa1 scale. Neuro: Level of Consciousness is awake, listless. Cardiovascular: Heart tones S1 S2 present. Cardiovascular: Respiratory: Airway is patent Respiratory effort is labored, gasping, Respiratory pattern is tachypnea Breath sounds with rhonchi bilaterally. GI: Abdomen is distended. EENT: Oral mucosa is dry. blood noted. Derm: Skin is intact, Skin is clammy, Skin is pale, Skin temperature is warm. 06:02 Reassessment: Pt's watch given to her daughter Kimberli. aa1 07:05 Reassessment: received report from DEJUAN Ramirez. em 07:10 General: Appears comfortable, Behavior is intubated and sedated . Pain: Unable to use em pain scale. Patient is intubated. Neuro: Level of Consciousness is obtunded. Cardiovascular: Pulses are palpable in right radial artery, right dorsalis pedis artery, left radial artery and left dorsalis pedis artery Edema pitting to left ankle, left foot, left wrist, left hand, right ankle and right foot Rhythm is sinus rhythm. Respiratory: Airway via oral intubation Respiratory effort is even, unlabored, assisted ventilation on vent. Respiratory pattern is regular, pink frothy sputum noted in ET tube Breath sounds are diminished bilaterally. GI: Abdomen is round non-distended, Oral gastric tube in place, to suction. carlos blood noted in OG tube. : Mckenna in place to gravity drainage Urine is clear. EENT: Oral mucosa is dry. dry blood noted in mouth. Derm: Skin is intact, is thin, Skin is clammy, Skin is pale, Skin temperature is warm. 07:10 Musculoskeletal: Range of motion: passive ROM. em 07:16 Reassessment: Dr. Mckay at bedside, repeat BGL 84, received verbal order to start D5 em NS at 100 mL/hr. 07:45 Reassessment: BP 71/50, HR 72, Dr. Topete notified, paused propofol. em 07:50 Reassessment: Reassessment: Dr. Topete at bedside, setting up for central line. em 07:55 Reassessment: Dr. Brock at bedside. em 09:07 Reassessment: attempted midline on left upper arm, unsuccessful attempt, pressure em dressing applied, no swelling or bleeding noted. 09:33 Reassessment: daughter states that the patient request to be DNR. em 09:55 Reassessment: wheeled to CT via stretcher with nurse, RT and digital camera technician, pt on monitor. em 10:14 Reassessment: bedside report given to DEJUAN Simmons in the ICU. em Vital Signs: 05:36 BP 168 / 84; Pulse 84; Resp 41 S; Pulse Ox 100% on Non-rebreather mask; Weight 99.79 kg bb (R); 06:01 Temp 102.6(R); aa1 06:01 BP 115 / 83; Pulse 76; Resp 30; Pulse Ox 100% on ETT vent; aa1 06:30 BP 95 / 63; Pulse 73; Resp 30; Temp 102.7(C); Pulse Ox 99% on ETT vent; aa1 07:00 BP 100 / 55; Pulse 67; Resp 27 A; Temp 102.5(C); Pulse Ox 100% on ETT vent; jl7 07:30 BP 106 / 66; Pulse 73; Resp 26 A; Temp 101.9(C); Pulse Ox 99% on ETT vent; jl7 07:40 BP 71 / 50; Pulse 72; em 07:45 BP 66 / 45; Pulse 68; em 07:50 BP 66 / 48; Pulse 65; em 07:55 BP 113 / 75; Pulse 73; em 08:00 BP 130 / 77; Pulse 72; Resp 25 A; Temp 101.4(C); Pulse Ox 100% on ETT vent; jl7 08:00 BP 141 / 76; Pulse 84; em 08:17 BP 125 / 76; Pulse 83; em 08:30 BP 123 / 62; Pulse 84; Resp 14 A; Temp 101.4(C); Pulse Ox 99% on ETT vent; jl7 08:46 BP 92 / 72; Pulse 76; Pulse Ox 100% on 90% FiO2 ETT vent; em 09:00 BP 98 / 64; Pulse 81; Resp 14 A; Temp 101.6(C); Pulse Ox 97% on ETT vent; jl7 09:20 BP 117 / 63; Pulse 74; Pulse Ox 100% on 90% FiO2 ETT vent; em 09:30 BP 113 / 57; Pulse 77; em 09:45 BP 107 / 61; Pulse 78; Pulse Ox 100% on 90% FiO2 ETT vent; em ED Course: 05:19 Patient arrived in ED. cl3 05:20 Arm band placed on Patient placed in an exam room, on a stretcher, on oxygen, on bb mother baby rn, on pulse oximetry, RT at bedside for intubation. 05:20 Placed in gown. stamping die maker on. Pulse ox on. NIBP on. aa1 05:20 Oxygen administration via non-rebreather mask. aa1 05:26 Assisted provider with intubation using 7.0 mm ETT via oral route. ET tube secured at bb 23cm at the teeth. Set up intubation tray. Intubated by Acosta Mckay MD Placement verified by CXR, CO2 detector w/ + color change, auscultating bilateral breath sounds, Patient tolerated well. 05:27 Inserted saline lock: 18 gauge in right forearm, using aseptic technique. ,using bb aseptic technique. by Rupali Robbins RN. 05:29 Acosta Mckay MD is Attending Physician. tw4 05:35 Triage completed. bb 05:50 Mckenna cath inserted, using sterile technique, 16 Fr., balloon inflated, to gravity aa1 drainage, other by Anabel student nurse. 05:55 XRAY CXR (1 view) In Process Unspecified. EDMS 06:23 XRAY KUB In Process Unspecified. EDMS 07:01 Raffy Brock MD is Hospitalizing Provider. tw4 07:07 Junior Lopez, RN is Primary Nurse. em 07:55 Assisted provider with central line placement. Set up central line tray. Triple lumen em line placed in right femoral. Line placed by Ward Topete MD Patient tolerated well. unable to place central line. 08:33 Assisted provider with central line placement. Set up central line tray. Triple lumen em line placed in left femoral. Line placed by Ward Topete MD Patient tolerated well. unable to place central line. 09:07 Accessed 18 G 8 CM PowerGlide MidlinePro to the LUE, a pressure dressing has been sg applied. Missed attempt(s): Bleeding controlled, band aid applied, catheter tip intact. 09:30 Inserted saline lock: 18 gauge in left EJ, using aseptic technique. em 10:25 Patient admitted, IV remains in place. em Administered Medications: 05:25 Drug: Etomidate 20 mg Route: IVP; Site: right antecubital; bb 06:00 Follow up: Response: No adverse reaction aa1 05:25 Drug: Succinylcholine 100 mg Route: IVP; Site: right antecubital; bb 06:00 Follow up: Response: No adverse reaction aa1 05:36 Drug: D50W 25 ml Route: IVP; Site: right forearm; aa1 06:00 Follow up: Response: No adverse reaction; Blood pressure is elevated; BGL 94 aa1 05:43 Drug: Propofol 5 mcg/kg/min Route: IV; Rate: calculated rate; Site: right forearm; aa1 10:25 Follow up: IV Status: Infusion continued upon admission; started at 8mcg/kg/min then em titrated up to 15mcg/kg/min at 0820 05:44 Drug: Versed 2 mg Route: IVP; Site: right hand; aa1 06:47 Follow up: Response: No adverse reaction aa1 06:01 Drug: Tylenol Suppository 650 mg Route: NM; aa1 07:10 Follow up: Response: No adverse reaction em 07:01 Drug: NS 0.9% 1000 ml Route: IV; Rate: 1 bolus; Site: right forearm; aa1 08:00 Follow up: IV Status: Completed infusion; IV Intake: 1000ml em 07:01 Drug: Versed 2 mg Route: IVP; Site: right forearm; aa1 07:15 Follow up: Response: No adverse reaction em 07:02 Drug: AZITHromycin 500 mg Route: IVPB; Infused Over: 1 hrs; Site: left forearm; aa1 08:15 Follow up: Response: No adverse reaction; IV Status: Completed infusion; IV Intake: em 250ml 07:29 Drug: fentaNYL (PF) 50 mcg Route: IVP; Site: left hand; em 07:45 Follow up: Response: No adverse reaction em 07:51 Drug: Norepinephrine (4 mg/250 mL D5W) 4 mcg/min Route: IV; Rate: calculated rate; em Site: left forearm; 10:49 Follow up: IV Status: Infusion continued upon admission em 08:00 Drug: fentaNYL (PF) 50 mcg Route: IVP; Site: right hand; em 08:15 Follow up: Response: No adverse reaction em 08:07 Drug: VecuroNIUM 10 mg Route: IVP; Site: right hand; em 08:15 Follow up: Response: No adverse reaction em 09:30 Drug: D5-NS 1000 ml Route: IV; Rate: 100 ml/hr; Site: right hand; em 10:51 Follow up: IV Status: Infusion continued upon admission em 09:40 Drug: Cefepime 1 grams Route: IVPB; Rate: 200 ml/hr; Infused Over: 30 mins; Site: left em jugular; 10:00 Follow up: IV Status: Completed infusion em Point of Care Testing: Blood Glucose: 07:16 Blood Glucose: 83 mg/dL; em Ranges: Intake: 08:00 IV: 1000ml; Total: 1000ml. em 08:15 IV: 250ml; Total: 1250ml. em Ventilator: 07:10 Fi02: 100%; Rate: 14min; T.V.: 500ml; Peep: 5cm; Mode: CMV; em Outcome: 07:02 Decision to Hospitalize by Provider. tw4 10:24 Admitted to ICU accompanied by nurse, accompanied by tech, via stretcher, room 6, with em oxygen, on monitor, with chart, Report called to Iris, RN 10:24 Condition: stable 10:24 Instructed on the need for admit, Demonstrated understanding of instructions. 10:53 Patient left the ED. em Signatures: Dispatcher [employer] Conner Valentine, RN RN sg Rupali Vallejo RN RN aa1 Junior Lopez RN RN em Mary Beth Gamez RN RN bb Hudson Pereira RN RN jl7 Acosta Mckay MD MD tw4 Kailey Roca cl3 Corrections: (The following items were deleted from the chart) 10:39 07:45 Reassessment: BP 71/50, HR 72, Dr. Topete notified em em
--- NOTE | 2019-11-09 07:04 | EDPHYS ---
Physician Documentation [facility] Name: Cindy Herman Age: 84 yrs Sex: Female : 1935 Arrival Date: 11/09/2019 Time: 05:19 Bed 3 Private MD: ED Physician Acosta Mckay HPI: 11/09 05:41 This 84 yrs old Female presents to ER via EMS with complaints of Shortness Of tw4 Breath. 05:41 The patient has shortness of breath at rest. Onset: The symptoms/episode began/occurred tw4 4 hour(s) ago. Duration: The symptoms are continuous, and are unchanged since they started. The patient's shortness of breath has no apparent modifying factors. Associated signs and symptoms: The patient has no apparent associated signs or symptoms. Severity of symptoms: At their worst the symptoms were moderate in the emergency department the symptoms are unchanged. The patient has not experienced similar symptoms in the past. Historical: - Allergies: 05:36 cipro-can't take with Nitro; bb 05:36 Lisinopril; bb 05:36 Macrobid; bb - Home Meds: 05:47 alendronate 70 mg Oral tab 1 tab once wkly [Active]; aspirin 81 mg Oral TbEC 1 tab once bb daily [Active]; atorvastatin 10 mg Oral tab 1 tab once daily [Active]; carvedilol 6.25 mg Oral tab 1 tab 2 times per day [Active]; metformin 1,000 mg Oral tab 1 tab 2 times per day [Active]; glimepiride 2 mg Oral tab 1 tab once daily [Active]; gabapentin 100 mg Oral cap [Active]; doxazosin 2 mg Oral tab 1 tab once daily [Active]; Nitrostat 0.3 mg SL subl 1 tab every 5 minutes [Active]; ropinirole 5 mg Oral tab nightly [Active]; Fish Oil 1,000 mg Oral cap [Active]; Ocuvite [id number] xl-pjvs-ov-mg Oral cap [Active]; Vitamin B-12 1,000 mcg Oral tab [Active]; Vitamin C 500 mg Oral cpER [Active]; Vitamin D-3 with Aloe 120-1,000-10 mg-unit-mg Oral tab [Active]; - PMHx: 05:36 Diabetes - NIDDM; Hypertension; Kidney stones; bb - PSHx: 05:36 Tonsillectomy; Carpal Tunnel Repair; cataracts; heart valve replacement; Tubal ligation;bb - Immunization history:: Adult Immunizations unknown. - Coronavirus screen:: The patient has NOT traveled to [place] in the past 14 days. Proceed with normal triage process as indicated. - Social history:: Smoking status: unknown. - Ebola Screening: : No symptoms or risks identified at this time. ROS: 05:48 Cardiovascular: Negative for chest pain, palpitations, and edema, Abdomen/GI: Negative tw4 for abdominal pain, nausea, vomiting, diarrhea, and constipation, Back: Negative for injury and pain, MS/Extremity: Negative for injury and deformity, Skin: Negative for injury, rash, and discoloration. 05:48 Respiratory: Positive for cough, dyspnea on exertion, hemoptysis, shortness of breath, wheezing. Exam: 05:48 Constitutional: The patient appears diaphoretic, in obvious distress, severely tw4 distressed, pale. 05:48 Cardiovascular: Rate: tachycardic. 05:48 Respiratory: severe repiratory distress is noted, Respirations: labored breathing, that is severe, asymmetrical chest movement, that is severe, accessory muscle usage, that is severe, paradoxical chest movement, that is severe, tachypnea, Breath sounds: rhonchi, that are moderate, are heard diffusely. Vital Signs: 05:36 BP 168 / 84; Pulse 84; Resp 41 S; Pulse Ox 100% on Non-rebreather mask; Weight 99.79 kg bb (R); 06:01 Temp 102.6(R); aa1 06:01 BP 115 / 83; Pulse 76; Resp 30; Pulse Ox 100% on ETT vent; aa1 06:30 BP 95 / 63; Pulse 73; Resp 30; Temp 102.7(C); Pulse Ox 99% on ETT vent; aa1 07:00 BP 100 / 55; Pulse 67; Resp 27 A; Temp 102.5(C); Pulse Ox 100% on ETT vent; jl7 07:30 BP 106 / 66; Pulse 73; Resp 26 A; Temp 101.9(C); Pulse Ox 99% on ETT vent; jl7 07:40 BP 71 / 50; Pulse 72; em 07:45 BP 66 / 45; Pulse 68; em 07:50 BP 66 / 48; Pulse 65; em 07:55 BP 113 / 75; Pulse 73; em 08:00 BP 130 / 77; Pulse 72; Resp 25 A; Temp 101.4(C); Pulse Ox 100% on ETT vent; jl7 08:00 BP 141 / 76; Pulse 84; em 08:17 BP 125 / 76; Pulse 83; em 08:30 BP 123 / 62; Pulse 84; Resp 14 A; Temp 101.4(C); Pulse Ox 99% on ETT vent; jl7 08:46 BP 92 / 72; Pulse 76; Pulse Ox 100% on 90% FiO2 ETT vent; em 09:00 BP 98 / 64; Pulse 81; Resp 14 A; Temp 101.6(C); Pulse Ox 97% on ETT vent; jl7 09:20 BP 117 / 63; Pulse 74; Pulse Ox 100% on 90% FiO2 ETT vent; em 09:30 BP 113 / 57; Pulse 77; em 09:45 BP 107 / 61; Pulse 78; Pulse Ox 100% on 90% FiO2 ETT vent; em Ventilator: 07:10 Fi02: 100%; Rate: 14min; T.V.: 500ml; Peep: 5cm; Mode: CMV; em Procedures: 05:37 Intubation: Ventilated with 100% NRB prior to procedure. O2 saturation prior to tw4 procedure was 100 %. Intubated orally using # 4 Jermaine blade with 7.0 mm ETT. was successful on first attempt. Ventilated with ventilator. Tube secured Placement verified by CXR, CO2 detector with (+) color change, auscultating bilateral breath sounds, O2 saturation after procedure was 98 %. MDM: 05:37 ED course: Pt presented to ED with complaint of hemoptysis and dyspnea. Pt brought to tw4 room 3 with impending respiratory failure. Decision made to intubate pt with RSI. 06:07 Patient medically screened. tw4 07:01 Antibiotic administration: Maxipime plus Gentamicin and Zithromax given. Data reviewed: tw4 vital signs, nurses notes, lab test result(s), cardiac enzymes, CBC, electrolytes, hepatic panel, EKG, radiologic studies, plain films. Data interpreted: Pulse oximetry: Interpretation: hypoxia. Plan: will plan to intubate. Test interpretation: by ED physician or midlevel provider: ECG, plain radiologic studies. Counseling: I had a detailed discussion with the patient and/or guardian regarding: the historical points, exam findings, and any diagnostic results supporting the discharge/admit diagnosis, lab results, radiology results. Physician consultation: Raffy Brock MD was called at 07:00, was contacted at 07:00, regarding admission, to the ICU, patient's condition, need to evaluate the patient as soon as possible. ED course: Pt required additional sedation will place pt on propofol. Also ordered platelets for patient and will admit to the ICU. 11/09 05:35 Order name: Blood Culture Adult (2) 11/09 05:35 Order name: BMP; Complete Time: 06:45 11/09 06:45 Interpretation: Normal except: CL 113; GFR 33; CRE 1.49; BUN 37; GLUC 71; CA 7.6. 11/09 05:35 Order name: CBC with Diff 11/09 06:45 Interpretation: Normal except: WBC 1.8; MCV 90.7; MN% 2.3; LYM% 14.1; CHRISTEN% 83.1; RDW tw4 16.9; PLT 49; MCHC 31.7; NEUT A 1.5; LYMA 0.3. 11/09 05:35 Order name: Ckmb; Complete Time: 06:45 11/09 06:46 Interpretation: Within normal limits: CKMB < 1.0. 11/09 05:35 Order name: CPK; Complete Time: 06:45 11/09 06:46 Interpretation: Within normal limits: CPK 49. 11/09 05:35 Order name: D-Dimer; Complete Time: 06:45 11/09 06:45 Interpretation: Normal except: D-DIMER 5152. 11/09 05:35 Order name: Hepatic Function; Complete Time: 06:45 11/09 06:46 Interpretation: Normal except: AST 57; BILID 0.6; BILIT 1.1. 11/09 05:35 Order name: Lipase; Complete Time: 06:45 11/09 06:46 Interpretation: Within normal limits: LIP 199. 11/09 05:35 Order name: Magnesium; Complete Time: 06:45 11/09 06:46 Interpretation: Within normal limits: MG 1.9. tw4 11/09 05:35 Order name: NT PRO-BNP; Complete Time: 06:45 tw 11/09 06:46 Interpretation: Normal except: NT PRO-BNP 5999. tw4 11/09 05:35 Order name: PT-INR; Complete Time: 06:45 tw4 11/09 06:46 Interpretation: Normal except: PT 13.8. 4 11/09 05:35 Order name: Ptt, Activated; Complete Time: 06:45 tw4 11/09 06:46 Interpretation: Normal except: PTT 21.2. 4 11/09 05:35 Order name: Troponin (emerg Dept Use Only); Complete Time: 06:45 tw 11/09 06:46 Interpretation: Within normal limits: TROPED < 0.02. tw4 11/09 05:41 Order name: Glucose, Ancillary Testing; Complete Time: 06:45 ED[facility] 11/09 05:35 Order name: XRAY CXR (1 view) [facility] 11/09 05:46 Order name: Lactate aa1 11/09 05:47 Order name: XRAY KUB ea 11/09 06:20 Order name: Glucose, Ancillary Testing; Complete Time: 06:45 ED[facility] 11/09 06:40 Order name: Type And Screen [facility] 11/09 06:51 Order name: Bb Add On eb 11/09 07:29 Order name: Glucose, Ancillary Testing [facility] 11/09 07:35 Order name: ABO/RH no charge [facility] 11/09 07:42 Order name: Platelets, Leukored Pheresis [facility] 11/09 07:53 Order name: Sputum Culture [facility] 11/09 07:58 Order name: CBC Smear Scan [facility] 11/09 10:18 Order name: Lactate Sepsis 2 HR Follow-up [facility] 11/09 10:23 Order name: CT [facility] 11/09 05:35 Order name: EKG; Complete Time: 05:36 tw4 11/09 05:35 Order name: Cardiac monitoring; Complete Time: 05:43 tw4 11/09 05:35 Order name: EKG - Nurse/Tech; Complete Time: 06:04 tw4 11/09 05:35 Order name: IV Saline Lock; Complete Time: 05:43 tw4 11/09 05:35 Order name: Labs collected and sent; Complete Time: 05:43 tw4 11/09 05:35 Order name: O2 Per Protocol; Complete Time: 05:43 tw4 11/09 05:35 Order name: O2 Sat Monitoring; Complete Time: 05:43 4 11/09 07:52 Order name: CONS Physician Consult EDMS 11/09 07:52 Order name: NPO EDMS EC:07 Rate is 77 beats/min. Rhythm is regular. QRS Ider is Normal. WY interval is normal. QRS tw4 interval is normal. QT interval is normal. No Q waves. T waves are Normal. No ST changes noted. Clinical impression: NSR w/ Non-specific ST/T Changes. Interpreted by me. Reviewed by me. Administered Medications: 05:25 Drug: Etomidate 20 mg Route: IVP; Site: right antecubital; bb 06:00 Follow up: Response: No adverse reaction aa1 05:25 Drug: Succinylcholine 100 mg Route: IVP; Site: right antecubital; bb 06:00 Follow up: Response: No adverse reaction aa1 05:36 Drug: D50W 25 ml Route: IVP; Site: right forearm; aa1 06:00 Follow up: Response: No adverse reaction; Blood pressure is elevated; BGL 94 aa1 05:43 Drug: Propofol 5 mcg/kg/min Route: IV; Rate: calculated rate; Site: right forearm; aa1 10:25 Follow up: IV Status: Infusion continued upon admission; started at 8mcg/kg/min then em titrated up to 15mcg/kg/min at 0820 05:44 Drug: Versed 2 mg Route: IVP; Site: right hand; aa1 06:47 Follow up: Response: No adverse reaction aa1 06:01 Drug: Tylenol Suppository 650 mg Route: [place]; aa1 07:10 Follow up: Response: No adverse reaction em 07:01 Drug: NS 0.9% 1000 ml Route: IV; Rate: 1 bolus; Site: right forearm; aa1 08:00 Follow up: IV Status: Completed infusion; IV Intake: 1000ml em 07:01 Drug: Versed 2 mg Route: IVP; Site: right forearm; aa1 07:15 Follow up: Response: No adverse reaction em 07:02 Drug: AZITHromycin 500 mg Route: IVPB; Infused Over: 1 hrs; Site: left forearm; aa1 08:15 Follow up: Response: No adverse reaction; IV Status: Completed infusion; IV Intake: em 250ml 07:29 Drug: fentaNYL (PF) 50 mcg Route: IVP; Site: left hand; em 07:45 Follow up: Response: No adverse reaction em 07:51 Drug: Norepinephrine (4 mg/250 mL D5W) 4 mcg/min Route: IV; Rate: calculated rate; em Site: left forearm; 10:49 Follow up: IV Status: Infusion continued upon admission em 08:00 Drug: fentaNYL (PF) 50 mcg Route: IVP; Site: right hand; em 08:15 Follow up: Response: No adverse reaction em 08:07 Drug: VecuroNIUM 10 mg Route: IVP; Site: right hand; em 08:15 Follow up: Response: No adverse reaction em 09:30 Drug: D5-NS 1000 ml Route: IV; Rate: 100 ml/hr; Site: right hand; em 10:51 Follow up: IV Status: Infusion continued upon admission em 09:40 Drug: Cefepime 1 grams Route: IVPB; Rate: 200 ml/hr; Infused Over: 30 mins; Site: left em jugular; 10:00 Follow up: IV Status: Completed infusion em Point of Care Testing: Blood Glucose: 07:16 Blood Glucose: 83 mg/dL; em Ranges: Critical Glucose Levels:Adult <50 mg/dl or >400 mg/dl <40 mg/dl or >180 mg/dl Disposition: 07:01 Critical Care:. tw4 Disposition: 11/09/19 07:02 Hospitalization ordered by Raffy Brock for Inpatient Admission. Preliminary diagnosis are Hemoptysis, Other pneumonia, unspecified organism, Thrombocytopenia, unspecified. - Bed requested for Intensive Care Unit. - Status is Inpatient Admission. em - Condition is Stable. - Problem is new. - Symptoms have improved. Critical care time excluding procedures: 07:01 Critical care time: Bedside Care: 35 minutes, Consultation: 5 minutes, Family tw4 Intervention: 10 minutes. Total time: 50 minutes Signatures: Dispatcher [employer] EDRupali Gong RN RN aa1 Junior Lopez RN RN em Mary Beth Gamez RN RN bb Hudson Pereira RN RN jl7 Acosta Mckay MD MD tw4 Floyd Abraham 4 Corrections: (The following items were deleted from the chart) 07:02 07:02 Hospitalization Ordered by Raffy Brock MD for Inpatient Admission. Preliminary tw4 diagnosis is Hemoptysis; Other pneumonia, unspecified organism; Thrombocytopenia, unspecified. Bed requested for Telemetry/MedSurg (Inpatient). Status is Inpatient Admission. Condition is Stable. Problem is new. Symptoms have improved. tw4 09:02 07:02 11/09/2019 07:02 Hospitalization Ordered by Raffy Brock MD for Inpatient dh4 Admission. Preliminary diagnosis is Hemoptysis; Other pneumonia, unspecified organism; Thrombocytopenia, unspecified. Bed requested for Intensive Care Unit. Status is Inpatient Admission. Condition is Stable. Problem is new. Symptoms have improved. tw4 10:53 09:02 11/09/2019 07:02 Hospitalization Ordered by Raffy Brock MD for Inpatient em Admission. Preliminary diagnosis is Hemoptysis; Other pneumonia, unspecified organism; Thrombocytopenia, unspecified. Bed requested for Intensive Care Unit. Status is Inpatient Admission. Condition is Stable. Problem is new. Symptoms have improved. 4
[2019-11-09] MEDS ORDERED: D5 0.9 NS 1,000 ML IV ONE (07:26)
[2019-11-09] MEDS ORDERED: FENTANYL CITR 100 MCG/2 ML ONE (07:33)
[2019-11-09] MEDS ORDERED: ONDANSETRON 4 MG/2 ML VIAL IV PRN (07:42)
[2019-11-09] MEDS ORDERED: NOREPINEPHRINE 4mg/D5W 250mL 4 MG/250 ML BAG IV ONE ×2 (07:49→08:57)
[2019-11-09] MEDS ORDERED: NOREPINEPHRINE 4 MG in D5W 250 ML IV PRN (07:55)
[2019-11-09 07:57] LABS: Urine White Blood Cell Casts OK
[2019-11-09 07:58] LABS: Anisocytosis 1+; Blood Morphology Comment NOTED (NOT SEEN); Platelet Estimate DECR
[2019-11-09] MEDS ORDERED: VANCOMYCIN/NS 1 gm 1 GM/250 ML BAG IVPB SCH (08:00)
[2019-11-09] MEDS: IPRATROPIUM BROM 0.5MG/2.5ML NEB SCH ×4 (08:00→19:50)
[2019-11-09] MEDS ORDERED: NA CHLORIDE 0.9% 1,000 ML IV SCH (08:00)
--- NOTE | 2019-11-09 08:01 | P.HP ---
Certification for Inpatient Patient admitted to: Inpatient With expected LOS: >2 Midnights Practitioner: I am a practitioner with admitting privileges, knowledge of patient current condition, hospital course, and medical plan of care. Services: Services provided to patient in accordance with Admission requirements found in Title 42 Section 412.3 of the Code of Federal Regulations Patient History Date of Service: 11/09/19 Reason for admission: SOB , hemoptysis History of Present Illness: 84 yrs old Female admitted with complaints of Shortness Of Breath which started all of a sudden associated with hemoptysis . 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 Has history of diabetes and hypertension, restless leg syndrome and recent history of perforated gastric ulcer. Not on any blood thinners . At the time of interview patient is intubated on mechanical support and sedated and hence most of the history is obtained from the chart review and talking to the ER physician and family member at the bed side. As per the daughter the patient has been doing fine the last night. She started coughing in the bpm architect and started having shortness of breath. So she was using recliner and had condition worsened and coughing up blood and was brought to ER. Denies any fever. No sick contacts. Not complained of chest pain No previous similar history in the past Allergies ciprofloxacin [From Cipro] Allergy (Verified 04/10/19 19:11) CANT NOT TAKE WITH AMALODIPINE lisinopril Allergy (Verified 04/10/19 19:12) COUGH nitrofurantoin [From Macrobid] Allergy (Verified 04/10/19 19:12) Rash Home medications list reviewed: Yes Home Medications: Alendronate Sodium 1 tab PO SEECOM 04/11/19 Ascorbic Acid [Vitamin C*] 500 mg PO DAILY 04/11/19 Aspirin [Aspirin EC 81 MG] 81 mg PO DAILY 04/11/19 Atorvastatin Calcium [Lipitor*] 10 mg PO BEDTIME 04/11/19 Cholecalciferol (Vitamin D3) [Vitamin D3] 1,000 unit PO DAILY 04/11/19 Cyanocobalamin (Vitamin B-12) [Vitamin B12] 2,500 mcg PO DAILY 04/11/19 Docosahexanoic AC/Epa [Fish Oil 1,000 MG*] 1 cap PO BID 04/11/19 Doxazosin Mesylate 1 tab PO BEDTIME 04/11/19 Gabapentin 100 mg PO DAILY PRN 04/11/19 Glimepiride 1 tab PO DAILY 04/11/19 Metformin HCl 1 tab PO BID 04/11/19 Mv-Min/FA/Vit K/Lycop/Lut/Zeax [Ocuvite Eye Plus Multi Tablet] 1 tab PO BID Nitroglycerin [Nitrostat] 0.3 mg SL [id number] PRN 04/11/19 Ropinirole HCl 1 tab PO BEDTIME 04/11/19 carvediloL [Coreg*] 1 tab PO BID 04/11/19 Pantoprazole Sodium [Protonix] 40 mg PO BID #60 tablet. 04/19/19 Sucralfate [Carafate -Tab] 1 gm PO ACHS #60 tab 04/19/19 - Past Medical/Surgical History Diabetic: Yes Past Medical History: Reviewed- Non-Contributory -: Diabetes mellitus type 2 -: Restless leg syndrome -: Hypertension -: kidney stones Past Surgical History: Reviewed- Non-Contributory -: Tonsillectomy -: Carpal tunnel -: Heart valve surgery -: Tubal ligation -: cataract sx -: hernia repair -: choley Psychosocial/ Personal History: Unknown - Family History Family History: Reviewed- Non-Contributory - Family History Father -: Heart disease Mother -: Heart disease, Stroke Brother -: Heart disease, Cancer Sister -: Heart disease, Hypertension, Cancer - Social History Alcohol use: No CD- Drugs: No Caffeine use: Yes Review of Systems is unable to be obtained (intubated and on sedation) Physical Examination - Vital Signs Temperature: 102.7 F Blood Pressure: 95/62 Pulse: 76 Respirations: 20 Pulse Ox (%): 92 - Physical Exam General: Other (Sedated, on ventilator) HEENT: Atraumatic, Normocephalic Neck: Supple Respiratory: Diminished, Crackles/rales, Expiratory wheezes Cardiovascular: Normal pulses, Regular rate/rhythm Capillary refill: <2 Seconds Gastrointestinal: Soft and benign, W/out hepatosplenomegaly Musculoskeletal: No clubbing, No swelling Integumentary: No rashes Neurological: Other (Sedated ) Lymphatics: No axilla or inguinal lymphadenopathy Urinary: Other (No bladder distention) External genitalia: Deferred Rectal: Deferred - Studies Laboratory Data (last 24 hrs) 11/09/19 05:30: PT 13.8 H, INR 1.18, APTT 21.2 L 11/09/19 05:30: WBC 1.8 L*, Hgb 12.3, Hct 38.6, Plt Count 49 L* 11/09/19 05:30: Sodium 144, Potassium 3.9, BUN 37 H, Creatinine 1.49 H, Glucose 71 L, Magnesium 1.9, Total Bilirubin 1.1 H, AST 57 H, ALT 55, Alkaline Phosphatase 101, Lipase 199 Assessment and Plan - Problems (Diagnosis) (1) Acute respiratory failure Current Visit: Yes Status: Acute (2) Hypoxia Current Visit: Yes Status: Acute (3) Hemoptysis Current Visit: Yes Status: Acute (4) Leukopenia Current Visit: Yes Status: Acute (5) Thrombocytopenia Current Visit: Yes Status: Acute (6) Chemotherapy induced neutropenia Current Visit: Yes Status: Acute (7) Diabetes Current Visit: No Status: Chronic Qualifiers: Diabetes mellitus type: type 2 Diabetes mellitus [facility] insulin use: without ocean transportation intermediary use Diabetes mellitus complication status: without complication Qualified Code(s): E11.9 - Type 2 diabetes mellitus without complications (8) Hypertension Current Visit: No Status: Chronic Qualifiers: Hypertension type: essential hypertension Qualified Code(s): I10 - Essential (primary) hypertension - Plan Acute hypoxic respiratory failure Respiratory distress Hemoptysis LGL Leukopenia Thrombocytopenia DM HTN h/o Perforated Gastric Ulcer Sepsis due to Pneumonia Multifocal pneumonia Hypoglycemia possibly due to sepsis Plan Admit in ICU Admitted to the ICU intubated on mechanical ventilator support Start on broad-spectrum IV antibiotic Will obtain blood cultures and sputum cultures Pulmonology consult Bronchodilators Will transfuse 1 unit platelets Will monitor CBC serially Consult hematology Monitor renal parameters Patient was on oxygen therapy and steroids at home Will start on Solu-Medrol for now IV hydration Started on Levophed Add on vasopressin if need GI/DVT prophylaxis Advanced directives DNR (Talked to Daughter ) - Advance Directives Does patient have a Living Will: No Does patient have a Durable POA for Healthcare: Yes
[2019-11-09] MEDS ORDERED: VECURONIUM 10 MG/VIAL IV ONE (08:09)
[2019-11-09] MEDS ORDERED: WATER FOR INJ,STERILE 10 ML ONE (08:10)
[2019-11-09] MEDS ORDERED: IPRATROPIUM BROM 0.5MG/2.5ML ONE (08:25)
[2019-11-09] MEDS ORDERED: ALBUTEROL 2.5 MG/3 ML NEB SOL ONE (08:25)
--- NOTE | 2019-11-09 08:40 | RAD REPORT ---
EXAM DESCRIPTION: RAD - Chest Single View - 11/09/2019 5:55 am CLINICAL HISTORY: HEMOPTYSIS COMPARISON: Chest Single View dated 04/14/2019 TECHNIQUE: AP portable chest image was obtained 11/09/2019 5:55 am . FINDINGS: Endotracheal tube is in place with the tip top of the aortic arch. This is well above the denise. NG tube is in place with the tip below the diaphragm, off the field of view. Large area of masslike consolidation fills the left midlung field. A few air bronchograms are identif iable. No cavitation seen. Right lung field is clear. Heart and vasculature are normal. No measurable pleural effusion and no pn eumothorax. No acute bony abnormality seen. No acute aortic findings suspected. IMPRESSION: Large masslike consolidation left midlung field. In the acute clinical setting this is m ost likely pneumonia. CT imaging may be helpful to evaluate for mass or pulmonary hemorrhage. ET tube in good position. NG tube tip is below the diaphragm, off the field of view.
--- NOTE | 2019-11-09 08:42 | RAD REPORT ---
EXAM DESCRIPTION: RAD - Abdomen 1 View (KUB) - 11/09/2019 6:22 am CLINICAL HISTORY: ABDOMINAL DISTENTION COMPARISON: No comparisons FINDINGS: Two views the abdomen were obtained both have motion degradation artifacts. NG tube is in place. Tip is in the right mid abdomen corresponding to antrum of the stomach or possibly proximal mo st duodenum. The stomach is decompressed. Bowel gas pattern is nonspecific. No large or small bowel obstruction changes are evident. No free ai r or pneumatosis. No suspicious calcifications. No significant bony findings Left mid lung field finding is detailed on separate chest report. IMPRESSION: NG tube is in place with the tip in the antrum of the stomach or proximal duodenum. Stom ach is decompressed. No obstruction, free air or emergent finding evident.
[2019-11-09] MEDS: CEFEPIME/SWI 1gm 10 ML IV SCH (09:00)
[2019-11-09] MEDS ORDERED: CEFEPIME 1 GM/VIAL IV SCH (09:00)
--- NOTE | 2019-11-09 10:20 | RAD REPORT ---
EXAM DESCRIPTION: CT - Chest Angio - 11/09/2019 9:57 am CLINICAL HISTORY: Hemoptysis COMPARISON: Chest Single View dated 11/09/2019 TECHNIQUE: Dynamically enhanced 3 mm thick images of the chest were obtained during administration o f approximately 150mL Isovue 370 IV contrast. Coronal and oblique MIP reconstruction images were gene rated and reviewed. Exam utilizes a protocol to evaluate the pulmonary arterial tree. All CT scans are performed using dose optimization technique as appropriate and may include automated exposure control or mA/KV adjustment according to patient size. FINDINGS: No pulmonary emboli are identified. The aorta as imaged shows no acute or suspicious finding. No pericardial thickening or effusion. Small left pleural effusion. There is dense consolidation in the lingula and midportion of the left u pper lobe. Air bronchograms are present. No mass or cavitation component seen. Small amount of endobr onchial opacification seen from infectious/ inflammatory debris. This is the correlate to the chest f ilm finding. Patient has additional dense consolidation in the right lower lobe. There are few air br onchograms centrally. Partial atelectasis seen in the left lower lobe. There is some alveolar opacifi cation in the superior segment left lower lobe. Patchy airspace opacities are present in the posterio r and inferior aspect of the left upper lobe and in the right middle lobe. Endotracheal tube is in good position. Tip is at the aortic arch level. NG tube extends into the stom ach. No right-sided pleural effusion. No mediastinal or hilar suspicious masses. No chest wall masses or abnormal axillary lymphadenopathy. Fluid is seen in the right upper quadrant between the liver and diaphragm. This is only partially gareth ged. IMPRESSION: No pulmonary emboli identified. Large consolidated pneumonia involving the mid and lingula portions of the left upper lobe. Large area of consolidated pneumonia involving the superior and midportion of the right lower lobe. This is most likely infectious pneumonia. Aspiration pneumonia is possible. There is no cavitation. Abdominal ascites is present between the diaphragm and liver. Abdominal ascites is only partially gareth ged.
[2019-11-09] MEDS ORDERED: SODIUM CHLORIDE 0.9% 10ML INJ IV PRN (10:39)
[2019-11-09] MEDS ORDERED: VASOPRESSIN 80 UNIT in NA CHLORIDE 0.9% 250 ML IV PRN (10:44)
[2019-11-09 10:54] LABS: Urine Appearance TURBID; Urine Bilirubin NEGATIVE (NEG); Urine Blood NEGATIVE (NEG); Urine Color DK YELLOW; Urine Glucose NEGATIVE (NEG); Urine Protein 2+ (NEG)
[2019-11-09 11:00] LABS: Absolute Lymphocytes (CBC) 0.8 K/uL (0.7-4.9); Basophils % 0.1 % (0-1.3); Lymphocytes % 12.7 % (15.3-44.8); MPV 8.5 fL (7.6-11.3); RBC Red Blood Cell Count 4.02 M/uL (3.86-4.86)
[2019-11-09] MEDS ORDERED: NA CHLORIDE 0.9% 1,000 ML IV ONE ×2 (11:13→11:39)
[2019-11-09] MEDS: VANCOMYCIN 1.75 GM in NA CHLORIDE 0.9% 500 ML IVPB SCH (11:22)
[2019-11-09 11:23] LABS: Urine Amorphous Sediment 3+ /HPF (NONE SEEN); Urine Bacteria >50 /HPF (<20); Urine Culture Reflex Order NOT NEEDED; Urine Yeast FEW (NONE SEEN)
[2019-11-09] MEDS: ALBUTEROL 2.5 MG/3 ML NEB SOL NEB SCH ×3 (11:30→20:00)
[2019-11-09] MEDS ORDERED: ALBUMIN HUMAN 25% 100 ML IV ONE ×2 (11:39→12:00)
[2019-11-09 11:57] LABS: Arterial Blood Carboxyhemoglob 0.8 % (0-1.5); Blood Gas Oxyhemoglobin 95.7 % (94-97); Blood O2 Saturation 97.2 % (92-98.5)
[2019-11-09] MEDS ORDERED: D5 0.9 NS 1,000 ML IV SCH (12:00)
[2019-11-09] MEDS ORDERED: HALOPERIDOL LACT 5 MG/ML INJ IV PRN (13:20)
[2019-11-09] MEDS: FENTANYL CITR 100 MCG/2 ML IV PRN ×3 (13:39→23:13)
[2019-11-09] MEDS: NOREPINEPHRINE 8 MG in Dextrose 5%-Water 500 ML IV PRN ×2 (14:06→19:16)
[2019-11-09 14:39] LABS: Arterial Blood Carboxyhemoglob 1.2 % (0-1.5); Blood Gas Oxyhemoglobin 96.2 % (94-97); Blood O2 Saturation 98.1 % (92-98.5)
[2019-11-09] MEDS: METHYLPREDNISOLONE 40 MG INJ IV SCH (17:09)
[2019-11-09] MEDS ORDERED: SUCCINYLCHOLINE 20 MG/ML (10 ML) IV ONE (17:43)
[2019-11-09] MEDS ORDERED: ETOMIDATE 20 MG/10 ML VIAL IV ONE (17:43)
[2019-11-09] MEDS: PANTOPRAZOLE 40 MG INJ IVP SCH (20:14)
[2019-11-09] MEDS: ACETAMINOPHEN 650MG/RECT SUPP PR PRN (20:14)
[2019-11-09] MEDS: LORazepam 2 MG/ML VIAL IV PRN (20:53)
[2019-11-09] MEDS: Ringers Lactate 1,000 ML IV SCH (21:15)
[2019-11-09] MEDS ORDERED: NA CHLORIDE 0.9% 250 ML IV ONE (22:01)
[2019-11-10] MEDS: IPRATROPIUM BROM 0.5MG/2.5ML NEB SCH ×7 (00:15→23:45)
[2019-11-10] MEDS: NOREPINEPHRINE 8 MG in Dextrose 5%-Water 500 ML IV PRN ×2 (00:20→07:45)
[2019-11-10] MEDS: METHYLPREDNISOLONE 40 MG INJ IV SCH ×3 (00:31→17:00)
[2019-11-10] MEDS: ALBUTEROL 2.5 MG/3 ML NEB SOL NEB SCH ×2 (01:23→08:00)
[2019-11-10] MEDS: LORazepam 2 MG/ML VIAL IV PRN ×3 (03:02→18:30)
[2019-11-10] MEDS: Ringers Lactate 1,000 ML IV SCH ×3 (03:02→21:00)
[2019-11-10 05:20] LABS: Blood Gas Oxyhemoglobin 96.7 % (94-97); Blood O2 Saturation 98.6 % (92-98.5)
[2019-11-10 05:37] LABS: Basophils % 0.1 % (0-1.3); Hematocrit 37.3 % (36.0-45.0); Lymphocytes % 4.8 % (15.3-44.8); MPV 9.6 fL (7.6-11.3); RBC Red Blood Cell Count 4.15 M/uL (3.86-4.86)
[2019-11-10] MEDS ORDERED: AMIODARONE HCL 150 MG in D5W 100 ML IV STA (07:12)
--- NOTE | 2019-11-10 07:24 | RAD REPORT ---
EXAM DESCRIPTION: RAD - Chest Single View - 11/10/2019 5:52 am CLINICAL HISTORY: ETT placement/PNA COMPARISON: Abdomen 1 View (KUB) dated 11/09/2019; Chest Single View dated 11/09/2019; Chest Angio vishal ed 11/09/2019 TECHNIQUE: AP portable chest image was obtained 11/10/2019 5:52 am . FINDINGS: Lung volumes are low. NG tube and ET tube are unchanged. Large left-side consolidation and moderate right-side consolidation are similar to the CT chest. No improvement is noted. Heart size a nd vasculature remain prominent. No enlarging pleural effusions seen. No pneumothorax. Patchy right u pper lobe opacification also stable. IMPRESSION: Large left-side and moderately large right-side consolidated pneumonia is have not hudson ed. Heart and vasculature remain prominent but not clearly different. Patient can be monitored for concur rent failure or volume overload.
[2019-11-10 07:33] LABS: Potassium 4.4 mmol/L (3.5-5.1)
--- NOTE | 2019-11-10 07:52 | EKG ---
Test Date: 2019-11-09 Test Time: 14:37:12 Scientist Engineer: DWAINE MEASUREMENT RESULTS: Intervals: Rate: 91 WI: QRSD: 82 QT: 364 QTc: 447 [place]: P: WI: QRS: -32 T: 65 INTERPRETIVE STATEMENTS: Atrial fibrillation with a competing junctional pacemaker Left axis deviation Low voltage QRS Abnormal ECG Compared to ECG 11/09/2019 05:58:31 Left-axis deviation now present Low QRS voltage now present Sinus rhythm no longer present Fusion complex(es) no longer present Electronically Signed On 11-10-19 07:51:47 SHREDDER TENDER PEAT by Duy Navarro
--- NOTE | 2019-11-10 07:54 | EKG ---
Test Date: 2019-11-09 Test Time: 05:58:31 Personnel Security Specialist: PREETI MEASUREMENT RESULTS: Intervals: Rate: 77 KS: 150 QRSD: 84 QT: 364 QTc: 411 [place]: P: 80 KS: 150 QRS: -17 T: 53 INTERPRETIVE STATEMENTS: Sinus rhythm with fusion complexes Otherwise normal ECG No previous ECG available for comparison Electronically Signed On 11-10-19 07:52:03 WEIGHER OPERATOR by Duy Navarro
[2019-11-10] MEDS ORDERED: AMIODARONE HCL 450 MG in D5W 241 ML IV SCH (08:00)
[2019-11-10 08:10] LABS: Anisocytosis 2+; Blood Morphology Comment NOTED (NOT SEEN); Platelet Estimate DECR
[2019-11-10 08:11] LABS: Burr Cells 1+
[2019-11-10] MEDS ORDERED: CALCIUM GLUC 10% INJ 4.65 MEQ in NA CHLORIDE 0.9% 100 ML IV ONE (08:12)
[2019-11-10] MEDS: FENTANYL CITR 100 MCG/2 ML IV PRN ×2 (08:15→12:20)
--- NOTE | 2019-11-10 08:48 | P.PN ---
Subjective Date of Service: 11/10/19 Chief Complaint: SOB , hemoptysis Subjective: No new changes (Still intubated on mechanical ventilator support) Review of Systems is unable to be obtained Physical Examination - Vital Signs Temperature: 98.5 F Blood Pressure: 97/72 Pulse: 160 Respirations: 18 Pulse Ox (%): 96 - Physical Exam General: Alert, Other (Intubated and on mechanical ventilator support) HEENT: Atraumatic, Normocephalic Neck: Supple Respiratory: Crackles/rales, Expiratory wheezes, Rhonchi/gurgles Cardiovascular: Irregular heart rate/rhythm Capillary refill: <2 Seconds Gastrointestinal: Soft and benign, W/out hepatosplenomegaly Musculoskeletal: No clubbing Integumentary: No rashes Neurological: Other Lymphatics: No axilla or inguinal lymphadenopathy External genitalia: Deferred Rectal: Deferred - Studies Abnormal Lab Results 11/09/19 06:50 ABO/Rh O POSITIVE Solid Phase Ab Screen Negative Laboratory Last Values WBC 20.1 K/uL (4.3-10.9) H* D 11/10/19 04:23 RBC 4.15 M/uL (3.86-4.86) 11/10/19 04:23 Hgb 11.7 g/dL (12.0-15.0) L 11/10/19 04:23 Hct 37.3 % (36.0-45.0) 11/10/19 04:23 MCV 89.9 fL (80-100) 11/10/19 04:23 MCH 28.2 pg (27.0-35.0) 11/10/19 04:23 MCHC 31.4 g/dL (32.0-36.0) L 11/10/19 04:23 RDW 18.1 % (12.1-15.2) H 11/10/19 04:23 Plt Count 43 K/uL (152-406) L* D 11/10/19 04:23 MPV 9.6 fL (7.6-11.3) D 11/10/19 04:23 Plt Distribution Width Cancelled 11/09/19 10:22 Neutrophils % 92.7 % (41.7-73.7) H 11/10/19 04:23 Lymphocytes % 4.8 % (15.3-44.8) L 11/10/19 04:23 Monocytes % 2.4 % (3.3-12.3) L 11/10/19 04:23 Eosinophils % 0.0 % (0-4.4) 11/10/19 04:23 Basophils % 0.1 % (0-1.3) 11/10/19 04:23 Megakaryocytes % Cancelled 11/09/19 10:22 Absolute Neutrophils 18.6 K/uL (1.8-8.0) H 11/10/19 04:23 Segmented Neutrophils 67 % (40-80) 11/10/19 04:23 Band Neutrophils 30 % (0-1) H* 11/10/19 04:23 Absolute Lymphocytes 1.0 K/uL (0.7-4.9) 11/10/19 04:23 Lymphocytes 3 % (15-42) L 11/10/19 04:23 Monocytes 0 % (0-10) 11/10/19 04:23 Absolute Monocytes 0.5 K/uL (0.1-1.3) 11/10/19 04:23 Absolute Eosinophils 0.0 K/uL (0-0.5) 11/10/19 04:23 Absolute Basophils 0.0 K/uL (0-0.5) 11/10/19 04:23 WBC/PLT Morphology Cancelled 11/09/19 10:22 Platelet Estimate Cancelled 11/09/19 10:22 Clumped Platelets Cancelled 11/09/19 10:22 Giant Platelets Cancelled 11/09/19 10:22 Anisocytosis 2+ 11/10/19 04:23 [place] Cells 1+ 11/10/19 04:23 Morphology Comment Noted (NOT SEEN) 11/10/19 04:23 PT 13.8 SECONDS (9.5-12.5) H 11/09/19 05:30 INR 1.18 11/09/19 05:30 APTT 21.2 SECONDS (24.3-36.9) L 11/09/19 05:30 D-Dimer 5152 FEUng/mL (<500) H* 11/09/19 05:30 pH 7.24 (7.35-7.45) L 11/10/19 05:00 pCO2 37.4 mmHG (35-45) 11/10/19 05:00 pO2 142.0 mmHG (75-100) H 11/10/19 05:00 HCO3 15.5 mmol/L (22-28) L 11/10/19 05:00 Base Excess -10.4 mmol/L 11/10/19 05:00 Oxyhemoglobin 96.7 % (94-97) 11/10/19 05:00 ABG O2 Sat (Measured) 98.6 % (92-98.5) H 11/10/19 05:00 ABG Carboxyhemoglobin 1.0 % (0-1.5) 11/10/19 05:00 ABG Methemoglobin 0.9 % (0-1.5) 11/10/19 05:00 Other Total Hgb 11.8 g/dl (12-18) L 11/10/19 05:00 Inspired O2 75.0 % 11/10/19 05:00 Sodium 143 mmol/L (136-145) 11/10/19 06:46 Potassium 4.4 mmol/L (3.5-5.1) 11/10/19 06:46 Chloride 115 mmol/L (98-107) H 11/10/19 06:46 Carbon Dioxide 16 mmol/L (21-32) L 11/10/19 06:46 BUN 44 mg/dL (7-18) H 11/10/19 06:46 Creatinine 1.86 mg/dL (0.55-1.3) H 11/10/19 06:46 Estimated GFR 26 mL/min (=/>90) L 11/10/19 06:46 Glucose 131 mg/dL (74-106) H 11/10/19 06:46 POC Glucose 114 mg/dl (65-120) 11/09/19 20:59 Lactic Acid 2.1 mmol/L (0.4-2.0) H 11/09/19 09:24 Calcium 6.6 mg/dL (8.5-10.1) L* D 11/10/19 06:46 Magnesium 1.9 mg/dL (1.8-2.4) 11/09/19 05:30 Total Bilirubin 1.1 mg/dL (0.2-1.0) H 11/09/19 05:30 Direct Bilirubin 0.6 mg/dL (0-0.2) H 11/09/19 05:30 AST 57 U/L (15-37) H 11/09/19 05:30 ALT 55 U/L (12-78) 11/09/19 05:30 Alkaline Phosphatase 101 U/L (45-117) 11/09/19 05:30 Creatine Kinase 49 U/L (26-192) 11/09/19 05:30 CK-MB (CK-2) < 1.0 ng/mL (0.3-3.6) 11/09/19 05:30 Rapid Troponin I < 0.02 ng/mL (0.0-0.045) 11/09/19 05:30 NT-Pro-B Natriuret Pep 5999 pg/mL (<450) H 11/09/19 05:30 Serum Total Protein 6.5 g/dL (6.4-8.2) 11/09/19 05:30 Albumin 3.4 g/dL (3.4-5.0) 11/09/19 05:30 Globulin 3.1 g/dL (2.3-3.5) 11/09/19 05:30 Albumin/Globulin Ratio 1.1 (1.1-1.8) 11/09/19 05:30 Lipase 199 U/L (73-393) 11/09/19 05:30 Urine Color Dk yellow 11/09/19 10:35 Urine Appearance Turbid 11/09/19 10:35 Urine pH 5.0 (5.0-7.0) 11/09/19 10:35 Ur Specific [place] 1.020 (1.005-1.030) 11/09/19 10:35 Glucose (UA)(Auto) Negative (NEG) 11/09/19 10:35 Urine Ketones Negative (NEG) 11/09/19 10:35 Urine Blood Negative (NEG) 11/09/19 10:35 Urine Nitrite Negative (NEG) 11/09/19 10:35 Urine Bilirubin Negative (NEG) 11/09/19 10:35 Urine Urobilinogen 1.0 mg/dL (0.2-1.0) 11/09/19 10:35 Ur Leukocyte Esterase 1+ (NEG) H 11/09/19 10:35 Urine RBC 5-10 /HPF (NONE SEEN) H 11/09/19 10:35 Urine WBC 10-20 /HPF (<5) H 11/09/19 10:35 Ur Squamous Epith Cells 20-50 /HPF (NONE SEEN) H 11/09/19 10:35 Amorphous Sediment 3+ /HPF (NONE SEEN) H 11/09/19 10:35 Urine Bacteria >50 /HPF (<20) H 11/09/19 10:35 Fine Granular Casts >10 /LPF (NONE SEEN) 11/09/19 10:35 Urine Yeast Few (NONE SEEN) 11/09/19 10:35 Urine Culture Reflexed Not needed 11/09/19 10:35 Urine Total Protein 2+ (NEG) H 11/09/19 10:35 Vancomycin Trough < 0.8 ug/mL (5.0-20.0) L 11/09/19 10:40 ABO/Rh O POSITIVE 11/09/19 06:50 Solid Phase Ab Screen Negative 11/09/19 06:50 Assessment & Plan - Problems (Diagnosis) (1) Acute respiratory failure Current Visit: Yes Status: Acute (2) Hypoxia Current Visit: Yes Status: Acute (3) Hemoptysis Current Visit: Yes Status: Acute (4) Leukopenia Current Visit: Yes Status: Acute (5) Thrombocytopenia Current Visit: Yes Status: Acute (6) Chemotherapy induced neutropenia Current Visit: Yes Status: Acute (7) Diabetes Current Visit: No Status: Chronic Qualifiers: Diabetes mellitus type: type 2 Diabetes mellitus residential insulin use: without residential use Diabetes mellitus complication status: without complication Qualified Code(s): E11.9 - Type 2 diabetes mellitus without complications (8) Hypertension Current Visit: No Status: Chronic Plan: Multifocal pneumonia Acute hypoxic respiratory failure Respiratory distress Hemoptysis LGL Leukopenia Thrombocytopenia DM HTN h/o Perforated Gastric Ulcer Sepsis due to Pneumonia Hypoglycemia possibly due to sepsis Plan Admitted to the ICU intubated on mechanical ventilator support on broad-spectrum IV antibiotic blood cultures and sputum cultures Pulmonology consult Appreciated Bronchodilators Will monitor CBC serially Consulted hematology Monitor renal parameters Patient was on oxygen therapy and steroids at home On pressors will try to wean GI/DVT prophylaxis Advanced directives DNR (Talked to Daughter ) Qualifiers: Hypertension type: essential hypertension Qualified Code(s): I10 - Essential (primary) hypertension Time Spent Managing Pts Care (In Minutes): 45
[2019-11-10] MEDS: PANTOPRAZOLE 40 MG INJ IVP SCH ×2 (09:05→21:01)
[2019-11-10] MEDS: CEFEPIME/SWI 1gm 10 ML IV SCH (09:05)
--- NOTE | 2019-11-10 11:59 | ECHO ---
HEIGHT: 5 ft 3 in WEIGHT: 209 lb 8 oz DATE OF STUDY: 11/10/[address]: Duy Navarro MD 2-DIMENSIONAL: YES M.MODE: YES DOPPLER: YES COLOR FLOW: YES TDS: YES PORTABLE: NO DEFINITY: NO BUBBLE STUDY: NO DIAGNOSIS: ATRIAL FIBRILLATION CARDIAC HISTORY: CATHERIZATION: YES SURGERY: YES PROSTHETIC VALVE: YES PACEMAKER: NO MEASUREMENTS (cm) DIASTOLIC (NORMALS) SYSTOLIC (NORMALS) IVSd 1.1 (0.6-1.2) LA Diam 3.9 (1.9-4.0) LVEF 50% LVIDd 3.2 (3.5-5.7) LVIDs 2.4 (2.0-3.5) %FS 25% LVPWd 1.3 (0.6-1.2) Ao Diam 2.6 (2.0-3.7) 2 DIMENSIONAL ASSESSMENT: RIGHT ATRIUM: NORMAL LEFT ATRIUM: NORMAL RIGHT VENTRICLE: NORMAL LEFT VENTRICLE: LEFT VENTRICULAR HYPERTROPHY TRICUSPID VALVE: NORMAL MITRAL VALVE: MITRAL ANNULAR CALCIFICATION PULMONIC VALVE: NORMAL AORTIC VALVE: SCLEROSIS PERICARDIAL EFFUSION: NONE AORTIC ROOT: NORMAL LEFT VENTRICULAR WALL MOTION: NORMAL DOPPLER/COLOR FLOW: MILD TRICUSPID REGURGITATION. COMMENTS: MILD TRICUSPID REGURGITATION. ATRIAL FIBRILLATION. LEFT VENTRICULAR HYPERTROPHY. MITRAL ANNULAR CALCIFICATION. NORMAL LEFT VENTRICULAR EJECTION FRACTION. AORTIC SCLEROSIS WITH NO AORTIC STENOSIS. TECHNOLOGIST: Cortney MURRIETA
[2019-11-10] MEDS ORDERED: ALBUTEROL 2.5 MG/3 ML NEB SOL NEB PRN ×2 (12:40→18:00)
--- NOTE | 2019-11-10 12:40 | P.CNS ---
Date of Consult: 11/10/19 Reason for Consult: Respiratory failure septic shock Chief Complaint: SOB , hemoptysis History of Present Illness: Patient is 84 years of age admitted with shortness of breath hemoptysis and treatment for leukemia on ended up here with septic shock hypotensive patient intubated transferred to the ICU was in refractory shock currently being weaned off vasopressors extensive bilateral infiltrates treatment started at [facility] patient is alert agitated on a ventilator Allergies ciprofloxacin [From Cipro] Allergy (Verified 04/10/19 19:11) CANT NOT TAKE WITH AMALODIPINE lisinopril Allergy (Verified 04/10/19 19:12) COUGH nitrofurantoin [From Macrobid] Allergy (Verified 04/10/19 19:12) Rash Home Medications: Alendronate Sodium 1 tab PO SEECOM 04/11/19 Ascorbic Acid [Vitamin C*] 500 mg PO DAILY 04/11/19 Atorvastatin Calcium [Lipitor*] 10 mg PO BEDTIME 04/11/19 Cholecalciferol (Vitamin D3) [Vitamin D3] 1,000 unit PO DAILY 04/11/19 Docosahexanoic AC/Epa [Fish Oil 1,000 MG*] 2 cap PO DAILY 04/11/19 Doxazosin Mesylate 1 tab PO BEDTIME 04/11/19 Gabapentin 100 mg PO DAILY PRN 04/11/19 Glimepiride 1 tab PO DAILY 04/11/19 Metformin HCl 1 tab PO BID 04/11/19 Ropinirole HCl 1 tab PO BEDTIME 04/11/19 carvediloL [Coreg*] 1 tab PO BID 04/11/19 Ferrous Sulfate 325 mg PO DAILY 11/09/19 Methotrexate Sodium [Methotrexate] 20 mg PO Q7D 11/09/19 Pantoprazole Sodium [Protonix] 40 mg PO DAILY 11/09/19 Posaconazole 300 mg PO DAILY 11/09/19 Valacyclovir HCl [Valacyclovir] 500 mg PO DAILY 11/09/19 levoFLOXacin [Levofloxacin] 500 mg PO DAILY 11/09/19 - Past Medical/Surgical History Diabetic: Yes -: Diabetes mellitus type 2 -: Restless leg syndrome -: Hypertension -: kidney stones -: leukemia -: Tonsillectomy -: Carpal tunnel -: Heart valve surgery -: Tubal ligation -: cataract sx -: hernia repair -: choley Psychosocial/ Personal History: Unknown - Family History Father Medical History: Heart disease Mother Medical History: Heart disease, Stroke Brother Medical History: Heart disease, Cancer Sister Medical History: Heart disease, Hypertension, Cancer - Social History Smoking Status: Unknown if ever smoked Alcohol use: No CD- Drugs: No Caffeine use: Yes Place of Residence: Home Review of Systems is unable to be obtained Physical Examination Temp Pulse Resp BP Pulse Ox 99.3 F 71 30 H 92/63 98 11/10/19 09:00 11/10/19 11:45 11/10/19 12:20 11/10/19 11:45 11/10/19 12:20 General: Unresponsive Respiratory: Crackles/rales (Crackles bilaterally) Cardiovascular: No edema, Regular rate/rhythm Gastrointestinal: Normal bowel sounds, Soft and benign Musculoskeletal: No clubbing, No swelling - Problems (1) Septic shock Current Visit: Yes Status: Acute Plan: Patient is 84 years of age him treated for leukemia with chemotherapy admitted with refractory septic shock currently on a ventilator acute renal failure patient acidotic hypercapnic on admission thrombocytopenic neutropenic continue with IV fluid vasopressors titrate O2 to a sat of 90% patient only tolerates assist-control ventilation right now continue with steroids broad-spectrum antibiotics patient is on vancomycin and cefepime in addition to steroids vasopressin has been stopped patient change to Dell-Synephrine due to intermittent AFib probably has DIC oxygen has been titrated down ovoid platelet transfusion until severely thrombocytopenic or evidence of bleeding 1 she is off the vasopressors will consider starting on some tube feeds probably by tomorrow
[2019-11-10] MEDS: MIDAZOLAM HCL 2 MG/2 ML INJ IV PRN (13:36)
[2019-11-10] MEDS ORDERED: NA CHLORIDE 0.9% 250 ML ONE (17:39)
[2019-11-10] MEDS: VANCOMYCIN 1.75 GM in NA CHLORIDE 0.9% 500 ML IVPB SCH (21:10)
[2019-11-10 22:05] LABS: MPV 8.6 fL (7.6-11.3)
[2019-11-10 23:36] LABS: Platelet Estimate DECR
--- NOTE | 2019-11-10 23:49 | PN ---
Date of Progress Note: 11/10/2019 Hematology Progress/Brief Reconsult Note Reason For Consultation: Thrombocytopenia, pancytopenia. Brief History Of Present Illness: Ms. Herman is an 84-year-old lady, known to my partner, Dr. Moreland from the clinic, where she was being evaluated for chronic pancytopenia for the past few months. A bone marrow biopsy done by Dr. 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 She was started by her treating physician at [facility], Dr. Yousif, with methotrexate 20 mg p.o. weekly and a tapering dose of prednisone approximately 10 days ago. According to the daughter, Mrs Herman had only taken one dose of MTX thus far. Ms. Herman is nonverbal and on a ventilator. History is obtained from her daughter and the nurse at bedside as well as the chart. Her daughter describes finding her mother sitting up, coughing blood into tissues at around 4 a.m. morning. Ms. Herman apparently told her that she had been up at 1 a.m. with cough and was coughing up blood at that point. The daughter does not recall any fever, cough, or chills either in the days preceding or in the morning. She rushed her mother to the emergency room, where evaluation including chest x-ray and a CT angio of the chest revealed large consolidated pneumonia involving the mid and lingular portions of the left upper lobe as well as consolidated pneumonia including the superior and midportion of the right lower lobe. Ms. Herman was septic and in shock and in respiratory failure and had to be intubated and put on a ventilator. She has been in the ICU since admission. Currently, she is on 1 vasopressor, she had been on 3 vasopressors at some point yesterday and overnight. The daughter describes no history of previous hemoptysis or bleeding from any site. There is no history of platelet transfusion or packed red cell transfusion in the past. Review of Systems: Limited because of the patient's condition. Subjectively, Ms. Herman is nonverbal. She is on a ventilator, on pressors as well as an amiodarone drip. Objective: Vital Signs: She is currently afebrile. Temperature was 98.8, T- max was 102.7 shortly after admission, pulse 69, respirations between 16 and 20 on a ventilator, blood pressure was 99/62 at 5:30 p.m. She is saturating at 99 % with an FiO2 of 0.45. General: Ms. Herman appears sedated. There is pallor. No cyanosis, clubbing, or icterus was noted. There is bruising at the IV stick sites on both forearms , but there was no evidence of bleeding or oozing from the left IJ or peripheral IV lines or through the [place]. The ET tube also appears to be clear with no evidence of active bleeding. Neck: Lymph node survey reveals no palpable lymphadenopathy in the neck. Chest: Bilateral vesicular breath sounds, which are reduced on both sides. No evidence of rales or rhonchi were heard. Heart: Sounds revealed tachycardia. Normal S1, S2. No gallops or murmurs were heard. Abdomen: Soft, nontender. Bowel sounds were reduced. Neurologic: She is sedated and unable to respond to verbal stimulation. Laboratory Data: Her white count this morning was 20.1 thousand with a clear left shift and bandemia of 30%. Hemoglobin has been stable at 11.7 g/dL, platelet count was 43,000. PT/PTT on admission yesterday was 13.8 seconds and 21.2 seconds with an elevated D-dimer of 51.52. Chemistries reveal normal electrolytes, BUN and creatinine were elevated as was the lactic acid on admission and subsequently albumin was low normal at 3.4 g/dL. Assessment And Plan: 1. 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 Patient's baseline white blood count has been in the 1000 to 1100 range with an absolute neutrophil count of 200 to 300 at baseline. The current leukocytosis is appropriate and secondary to infection and should settle down if she continues to improve. No need for growth factors or other intervention at this time other than to treat the underlying infection. Her hemoglobin is better than baseline at this time and is holding well, would transfusion of packed red blood cells if her hemoglobin drops to less than 9 g/ dL while on ventilator. The thrombocytopenia is chronic. Her baseline runs between 50,000 and 70,000. Some of the decline could be due to sepsis and possibly disseminated intravascular coagulation, would you transfuse platelets if the count is less than 10,000 or if it is less than 50,000 and there is evidence of significant bleeding. 2. Large granular lymphocyte leukemia (LGL leukemia). Would suggest you continue to hold methotrexate until patient is stable and has recovered from this episode of sepsis and respiratory failure. She had been on tapering prednisone, which was started only a week ago, stress doses of prednisone are adequate at this time. Thank you for asking us to participate in Ms. Herman's care. Please do not hesitate to call me if you have any questions. AP/MODL Voice ID: [id number] Report ID: [id number] MTDD
[2019-11-11] MEDS: METHYLPREDNISOLONE 40 MG INJ IV SCH ×2 (01:06→09:00)
[2019-11-11] MEDS: Ringers Lactate 1,000 ML IV SCH ×3 (02:27→14:00)
[2019-11-11] MEDS: LORazepam 2 MG/ML VIAL IV PRN ×2 (02:27→11:35)
[2019-11-11] MEDS: IPRATROPIUM BROM 0.5MG/2.5ML NEB SCH ×2 (04:05→07:57)
[2019-11-11 06:57] LABS: Arterial Blood Carboxyhemoglob 1.2 % (0-1.5); Blood Gas Oxyhemoglobin 96.7 % (94-97); Blood O2 Saturation 98.7 % (92-98.5)
[2019-11-11] MEDS ORDERED: KCL 20 MEQ/100 mL IVPB 20 MEQ/100 ML BAG IV ONE (07:30)
[2019-11-11 07:43] LABS: Absolute Lymphocytes (CBC) 0.1 K/uL (0.7-4.9); Basophils % 0.1 % (0-1.3); Hematocrit 26.2 % (36.0-45.0); Lymphocytes % 7.5 % (15.3-44.8); MPV 9.7 fL (7.6-11.3); RBC Red Blood Cell Count 2.99 M/uL (3.86-4.86)
[2019-11-11 07:48] LABS: Protime INR 1.7
[2019-11-11 07:58] LABS: Albumin 2.2 g/dL (3.4-5.0); Bilirubin Total 2.1 mg/dL (0.2-1.0); Potassium 3.5 mmol/L (3.5-5.1); Protein, Total 4.9 g/dL (6.4-8.2)
--- NOTE | 2019-11-11 07:58 | RAD REPORT ---
EXAM DESCRIPTION: RAD - Chest Single View - 11/11/2019 6:24 am CLINICAL HISTORY: ETT placement/PNA COMPARISON: Chest Single View dated 11/10/2019; Chest Single View dated 11/10/2019; Chest Angio dated 11/09/2019 TECHNIQUE: AP portable chest image was obtained 11/11/2019 6:24 am . FINDINGS: Lung volumes remain low. Endotracheal tube and NG tube are unchanged. Left-side PICC line remains in place. Significant bilateral infiltrates are present slightly improved from comparison. Heart and vasculatur e are normal. No measurable pleural effusion and no pneumothorax. No acute bony abnormality seen. No acute aortic findings suspected. IMPRESSION: Bilateral infiltrate pattern has shown slight improvement. There is substantial remainin g bilateral pneumonia.
[2019-11-11] MEDS ORDERED: IPRATROPIUM BROM 0.5MG/2.5ML NEB PRN (09:31)
--- NOTE | 2019-11-11 09:31 | RAD REPORT ---
EXAM DESCRIPTION: RAD - Chest Single View - 11/11/2019 9:24 am CLINICAL HISTORY: SOB COMPARISON: Chest Single View dated 11/11/2019 TECHNIQUE: AP portable chest image was obtained 11/11/2019 9:24 am . FINDINGS: Lung volumes are reduced compared to the examination 3 hours earlier. Bilateral pleural an d parenchymal opacification stable. Heart size stable no pneumothorax. IMPRESSION: When adjusting for a more shallow inspiratory effort, chest examination is stable from t he examination 3 hours earlier.
--- NOTE | 2019-11-11 09:41 | P.PN ---
Subjective Date of Service: 11/11/19 Chief Complaint: Respiratory failure Subjective: Improving (Patient is improving off vasopressors alert cooperative oxygen requirement less than 50%) Review of Systems is unable to be obtained Physical Examination - Vital Signs Temperature: 96.9 F Blood Pressure: 112/57 Pulse: 69 Respirations: 17 Pulse Ox (%): 100 - Physical Exam General: Alert, Cooperative Respiratory: Crackles/rales (Crackles on the left side) Cardiovascular: No edema Gastrointestinal: Soft and benign Assessment & Plan - Problems (Diagnosis) (1) Septic shock Current Visit: Yes Status: Acute Plan: Patient is doing much better weaned off vasopressors change to SIMV pressure support of 15 continue with a peep of 5 start tube feeds start on Lasix Dc steroids (2) Thrombocytopenia Current Visit: Yes Status: Acute Plan: Severe most likely DIC fibrinogen elevated Dc vancomycin could be a side effect cultures are so far negative platelet transfusion patient is not on any heparin products D-dimer elevated PT also elevated chest x-ray shows left lung infiltrate renal function improving
[2019-11-11] MEDS: PANTOPRAZOLE 40 MG INJ IVP SCH ×2 (10:03→20:17)
[2019-11-11] MEDS: FUROSEMIDE 20 MG/ 2ML VIAL IV SCH ×2 (10:04→17:57)
[2019-11-11] MEDS: CEFEPIME/SWI 1gm 10 ML IV SCH (10:04)
--- NOTE | 2019-11-11 10:20 | P.PN ---
Subjective Date of Service: 11/11/19 Chief Complaint: Respiratory failure Subjective: Improving (Off pressors Patient is more awake alert) Review of Systems is unable to be obtained Physical Examination - Vital Signs Temperature: 96.9 F Blood Pressure: 127/61 Pulse: 64 Respirations: 17 Pulse Ox (%): 100 - Physical Exam General: Alert, Mild distress HEENT: Atraumatic, Normocephalic Neck: Supple Respiratory: Diminished, Crackles/rales, Rhonchi/gurgles Cardiovascular: Irregular heart rate/rhythm Capillary refill: <2 Seconds Gastrointestinal: Soft and benign, W/out hepatosplenomegaly Musculoskeletal: No clubbing, No swelling Integumentary: No rashes Neurological: Other (Intubated, on mechanical ventilator support) Lymphatics: No axilla or inguinal lymphadenopathy External genitalia: Deferred Rectal: Deferred - Studies Laboratory Last Values WBC 1.7 K/uL (4.3-10.9) L* D 11/11/19 07:33 RBC 2.99 M/uL (3.86-4.86) L D 11/11/19 07:33 Hgb 8.5 g/dL (12.0-15.0) L D 11/11/19 07:33 Hct 26.2 % (36.0-45.0) L D 11/11/19 07:33 MCV 87.6 fL (80-100) 11/11/19 07:33 MCH 28.5 pg (27.0-35.0) 11/11/19 07:33 MCHC 32.5 g/dL (32.0-36.0) 11/11/19 07:33 RDW 18.2 % (12.1-15.2) H 11/11/19 07:33 Plt Count 16 K/uL (152-406) L* 11/11/19 07:33 MPV 9.7 fL (7.6-11.3) D 11/11/19 07:33 Plt Distribution Width Cancelled 11/09/19 10:22 Neutrophils % 91.7 % (41.7-73.7) H 11/11/19 07:33 Lymphocytes % 7.5 % (15.3-44.8) L 11/11/19 07:33 Monocytes % 0.7 % (3.3-12.3) L 11/11/19 07:33 Eosinophils % 0.0 % (0-4.4) 11/11/19 07:33 Basophils % 0.1 % (0-1.3) 11/11/19 07:33 Megakaryocytes % Cancelled 11/09/19 10:22 Absolute Neutrophils 1.5 K/uL (1.8-8.0) L 11/11/19 07:33 Segmented Neutrophils 67 % (40-80) 11/10/19 04:23 Band Neutrophils 30 % (0-1) H* 11/10/19 04:23 Absolute Lymphocytes 0.1 K/uL (0.7-4.9) L 11/11/19 07:33 Lymphocytes 3 % (15-42) L 11/10/19 04:23 Monocytes 0 % (0-10) 11/10/19 04:23 Absolute Monocytes 0.0 K/uL (0.1-1.3) L 11/11/19 07:33 Absolute Eosinophils 0.0 K/uL (0-0.5) 11/11/19 07:33 Absolute Basophils 0.0 K/uL (0-0.5) 11/11/19 07:33 WBC/PLT Morphology Cancelled 11/09/19 10:22 Platelet Estimate Cancelled 11/09/19 10:22 Clumped Platelets Cancelled 11/09/19 10:22 Giant Platelets Cancelled 11/09/19 10:22 Anisocytosis 2+ 11/10/19 04:23 Rachael Cells 1+ 11/10/19 04:23 Morphology Comment Noted (NOT SEEN) 11/10/19 04:23 PT 19.6 SECONDS (9.5-12.5) H 11/11/19 07:33 INR 1.70 11/11/19 07:33 APTT 32.9 SECONDS (24.3-36.9) 11/11/19 07:33 Fibrinogen 496 mg/dL (173-428) H 11/11/19 07:33 D-Dimer 6079 FEUng/mL (<500) H* 11/11/19 07:33 pH 7.40 (7.35-7.45) 11/11/19 05:00 pCO2 26.8 mmHG (35-45) L 11/11/19 05:00 pO2 125.0 mmHG (75-100) H 11/11/19 05:00 HCO3 16.3 mmol/L (22-28) L 11/11/19 05:00 Base Excess -7.6 mmol/L 11/11/19 05:00 Oxyhemoglobin 96.7 % (94-97) 11/11/19 05:00 ABG O2 Sat (Measured) 98.7 % (92-98.5) H 11/11/19 05:00 ABG Carboxyhemoglobin 1.2 % (0-1.5) 11/11/19 05:00 ABG Methemoglobin 0.8 % (0-1.5) 11/11/19 05:00 Other Total Hgb 9.1 g/dl (12-18) L 11/11/19 05:00 Inspired O2 45.0 % 11/11/19 05:00 Sodium 142 mmol/L (136-145) 11/11/19 07:33 Potassium 3.5 mmol/L (3.5-5.1) 11/11/19 07:33 Chloride 111 mmol/L (98-107) H 11/11/19 07:33 Carbon Dioxide 20 mmol/L (21-32) L 11/11/19 07:33 BUN 50 mg/dL (7-18) H 11/11/19 07:33 Creatinine 1.73 mg/dL (0.55-1.3) H 11/11/19 07:33 Estimated GFR 28 mL/min (=/>90) L 11/11/19 07:33 Glucose 203 mg/dL (74-106) H 11/11/19 07:33 POC Glucose 147 mg/dl (65-120) H 11/10/19 12:43 Lactic Acid 2.1 mmol/L (0.4-2.0) H 11/09/19 09:24 Calcium 7.0 mg/dL (8.5-10.1) L 11/11/19 07:33 Magnesium 1.9 mg/dL (1.8-2.4) 11/09/19 05:30 Total Bilirubin 2.1 mg/dL (0.2-1.0) H 11/11/19 07:33 Direct Bilirubin 0.6 mg/dL (0-0.2) H 11/09/19 05:30 AST 31 U/L (15-37) 11/11/19 07:33 ALT 34 U/L (12-78) 11/11/19 07:33 Alkaline Phosphatase 78 U/L (45-117) 11/11/19 07:33 Creatine Kinase 49 U/L (26-192) 11/09/19 05:30 CK-MB (CK-2) < 1.0 ng/mL (0.3-3.6) 11/09/19 05:30 Rapid Troponin I < 0.02 ng/mL (0.0-0.045) 11/09/19 05:30 NT-Pro-B Natriuret Pep 5999 pg/mL (<450) H 11/09/19 05:30 Serum Total Protein 4.9 g/dL (6.4-8.2) L 11/11/19 07:33 Albumin 2.2 g/dL (3.4-5.0) L D 11/11/19 07:33 Globulin 2.7 g/dL (2.3-3.5) 11/11/19 07:33 Albumin/Globulin Ratio 0.8 (1.1-1.8) L 11/11/19 07:33 Lipase 199 U/L (73-393) 11/09/19 05:30 Urine Color Dk yellow 11/09/19 10:35 Urine Appearance Turbid 11/09/19 10:35 Urine pH 5.0 (5.0-7.0) 11/09/19 10:35 Ur Specific [place] 1.020 (1.005-1.030) 11/09/19 10:35 Glucose (UA)(Auto) Negative (NEG) 11/09/19 10:35 Urine Ketones Negative (NEG) 11/09/19 10:35 Urine Blood Negative (NEG) 11/09/19 10:35 Urine Nitrite Negative (NEG) 11/09/19 10:35 Urine Bilirubin Negative (NEG) 11/09/19 10:35 Urine Urobilinogen 1.0 mg/dL (0.2-1.0) 11/09/19 10:35 Ur Leukocyte Esterase 1+ (NEG) H 11/09/19 10:35 Urine RBC 5-10 /HPF (NONE SEEN) H 11/09/19 10:35 Urine WBC 10-20 /HPF (<5) H 02/20/20 10:35 Ur Squamous Epith Cells 20-50 /HPF (NONE SEEN) H 11/09/19 10:35 Amorphous Sediment 3+ /HPF (NONE SEEN) H 11/09/19 10:35 Urine Bacteria >50 /HPF (<20) H 11/09/19 10:35 Fine Granular Casts >10 /LPF (NONE SEEN) 11/09/19 10:35 Urine Yeast Few (NONE SEEN) 11/09/19 10:35 Urine Culture Reflexed Not needed 11/09/19 10:35 Urine Total Protein 2+ (NEG) H 11/09/19 10:35 Vancomycin Trough 10.5 ug/mL (5.0-20.0) 11/10/19 20:30 ABO/Rh O POSITIVE 11/09/19 06:50 Solid Phase Ab Screen Negative 11/09/19 06:50 Assessment & Plan - Problems (Diagnosis) (1) Acute respiratory failure Current Visit: Yes Status: Acute (2) Hypoxia Current Visit: Yes Status: Acute (3) Hemoptysis Current Visit: Yes Status: Acute (4) Leukopenia Current Visit: Yes Status: Acute (5) Thrombocytopenia Current Visit: Yes Status: Acute (6) Chemotherapy induced neutropenia Current Visit: Yes Status: Acute (7) Diabetes Current Visit: No Status: Chronic Qualifiers: Diabetes mellitus type: type 2 Diabetes mellitus senior care insulin use: without intermediate project manager use Diabetes mellitus complication status: without complication Qualified Code(s): E11.9 - Type 2 diabetes mellitus without complications (8) Hypertension Current Visit: No Status: Chronic Qualifiers: Hypertension type: essential hypertension Qualified Code(s): I10 - Essential (primary) hypertension (9) DIC (disseminated intravascular coagulation) Current Visit: Yes Status: Acute Plan: Multifocal pneumonia Acute hypoxic respiratory failure Respiratory distress Hemoptysis LGL Leukopenia Thrombocytopenia DM HTN h/o Perforated Gastric Ulcer Sepsis due to Pneumonia Hypoglycemia possibly due to sepsis DIC Plan Admitted to the ICU intubated on mechanical ventilator support on broad-spectrum IV antibiotic blood cultures and sputum cultures negative so far Pulmonology consult Appreciated Bronchodilators and steroids Will monitor CBC serially Consulted hematology appreciate recommendation Monitor renal parameters Patient was on oxygen therapy and steroids at home Weaned off pressors On amiodarone for AFib converted to sinus rhythm Patient has possible DIC with thrombocytopenia elevated D-dimer and fibrinogen watch closely for any bleeding GI/DVT prophylaxis Advanced directives DNR (Talked to Daughter ) Time Spent Managing Pts Care (In Minutes): 45
--- NOTE | 2019-11-11 11:17 | RAD REPORT ---
EXAM DESCRIPTION: RAD - Chest Single View - 11/10/2019 8:52 pm CLINICAL HISTORY: 84 years Female, S/P PICC COMPARISON: 11/10/2019 at 05:4 8 FINDINGS: There is been interval placement of a left-sided PICC line with distal tip in the superior vena cava. An endotracheal tube is identified in good position. An NG tube is identified extending into the stomach. There is mild cardiomegaly, stable. Poststernotomy changes are redemonstrated. The lung loya are remarkable for a moderate severe pulmonary infiltrates with atelectasis in the le ft midlung field.. The pulmonary vascularity is unremarkable. There is a small left pleural effusion. IMPRESSION: 1. Successful placement of left-sided PICC line. 2. Moderate severe infiltrate with atelectasis left midlung field. 3. Small left pleural effusion. Electronically signed by: Chad Hackett MD 11/10/2019 9:13 PM PLUMBING DESIGNER Due to temporary technical issues with the PACS/Fluency reporting system, reports are being signed by the in house radiologist as a courtesy to ensure prompt reporting. The interpreting radiologist is f ully responsible for the content of the report.
[2019-11-11] MEDS: FENTANYL CITR 100 MCG/2 ML IV PRN (11:58)
[2019-11-11 12:32] LABS: Anisocytosis 2+; Blood Morphology Comment NOTED (NOT SEEN); Burr Cells 2+; Elliptocytes 1+; Platelet Estimate DECR
[2019-11-11] MEDS ORDERED: METOPROLOL TARTRATE 5 MG/5 ML INJ IV ONE (13:00)
[2019-11-11] MEDS ORDERED: DIGOXIN 0.25 MG/ML AMP IV ONE (13:00)
[2019-11-11] MEDS: MIDAZOLAM HCL 2 MG/2 ML INJ IV PRN (13:10)
[2019-11-11] MEDS: propofoL 1,000 MG/100 ML VIAL IV PRN ×2 (13:35→20:17)
--- NOTE | 2019-11-11 16:29 | EKG ---
Test Date: 2019-11-10 Test Time: 15:16:56 Mechanic Senior: DWAINE MEASUREMENT RESULTS: Intervals: Rate: 71 MO: 152 QRSD: 84 QT: 444 QTc: 482 [place]: P: 43 MO: 152 QRS: -31 T: 32 INTERPRETIVE STATEMENTS: Normal sinus rhythm Left axis deviation Low voltage QRS Cannot rule out Anterior infarct, age undetermined Abnormal ECG Compared to ECG 11/09/2019 14:37:12 Myocardial infarct finding now present Atrial fibrillation no longer present Electronically Signed On 11-11-19 16:27:44 LEHR TENDER by Duy Navarro
[2019-11-11] MEDS: JEVITY 1.2 CAL LIQUID 1,000 ML BOT RTH SCH (18:45)
[2019-11-12] MEDS: propofoL 1,000 MG/100 ML VIAL IV PRN ×4 (02:52→20:13)
[2019-11-12 05:24] LABS: Arterial Blood Carboxyhemoglob 1.5 % (0-1.5); Blood Gas Oxyhemoglobin 95.3 % (94-97); Blood O2 Saturation 97.4 % (92-98.5)
[2019-11-12 05:28] LABS: Absolute Lymphocytes (CBC) 0.2 K/uL (0.7-4.9); Hematocrit 25.6 % (36.0-45.0); Lymphocytes % 8.4 % (15.3-44.8); MPV 10.1 fL (7.6-11.3); RBC Red Blood Cell Count 2.94 M/uL (3.86-4.86)
[2019-11-12 05:29] LABS: Protime INR 1.27
[2019-11-12 06:02] LABS: Potassium 3.7 mmol/L (3.5-5.1)
[2019-11-12 07:11] LABS: Platelet Estimate DECR; Urine White Blood Cell Casts OK
[2019-11-12 07:12] LABS: Anisocytosis 1+; Blood Morphology Comment NOTED (NOT SEEN); Burr Cells 1+; Elliptocytes 1+
[2019-11-12] MEDS: FUROSEMIDE 20 MG/ 2ML VIAL IV SCH ×2 (08:46→17:03)
[2019-11-12] MEDS: PANTOPRAZOLE 40 MG INJ IVP SCH ×2 (08:47→20:08)
[2019-11-12] MEDS: CEFEPIME/SWI 1gm 10 ML IV SCH (08:48)
[2019-11-12] MEDS ORDERED: POTASSIUM 25 MEQ EFFERV TAB PO ONE (09:00)
--- NOTE | 2019-11-12 09:44 | RAD REPORT ---
EXAM DESCRIPTION: Kelsi Single View11/12/2019 6:39 am CLINICAL HISTORY: Shortness of breath COMPARISON: November 11 FINDINGS: Mild improvement in the bilateral pulmonary opacities consistent with pneumonia. Small left pleural effusion Endotracheal tube has its tip 6 centimeters above the denise. Nasogastric tube within the stomach IMPRESSION: Mild improvement in the pneumonia
--- NOTE | 2019-11-12 10:19 | P.PN ---
Subjective Date of Service: 11/12/19 Chief Complaint: Respiratory failure Subjective: No new changes (Still intubated and on mechanical vent support) Review of Systems 10-point ROS is otherwise unremarkable Physical Examination - Vital Signs Temperature: 98.8 F Blood Pressure: 124/66 Pulse: 120 Respirations: 25 Pulse Ox (%): 95 - Physical Exam General: Alert, In no apparent distress HEENT: Atraumatic, Normocephalic Neck: Supple Respiratory: Diminished, Crackles/rales Cardiovascular: Edema, Irregular heart rate/rhythm Capillary refill: <2 Seconds Gastrointestinal: Soft and benign, W/out hepatosplenomegaly Musculoskeletal: No clubbing Integumentary: No rashes Neurological: Other (sedated ) Lymphatics: No axilla or inguinal lymphadenopathy External genitalia: Deferred Rectal: Deferred - Studies Laboratory Last Values WBC 2.1 K/uL (4.3-10.9) L D 11/12/19 04:50 RBC 2.94 M/uL (3.86-4.86) L 11/12/19 04:50 Hgb 8.4 g/dL (12.0-15.0) L 11/12/19 04:50 Hct 25.6 % (36.0-45.0) L 11/12/19 04:50 MCV 87.2 fL (80-100) 11/12/19 04:50 MCH 28.4 pg (27.0-35.0) 11/12/19 04:50 MCHC 32.6 g/dL (32.0-36.0) 11/12/19 04:50 RDW 17.8 % (12.1-15.2) H 11/12/19 04:50 Plt Count 17 K/uL (152-406) L* 11/12/19 04:50 MPV 10.1 fL (7.6-11.3) 11/12/19 04:50 Plt Distribution Width Cancelled 11/09/19 10:22 Neutrophils % 91.1 % (41.7-73.7) H 11/12/19 04:50 Lymphocytes % 8.4 % (15.3-44.8) L 11/12/19 04:50 Monocytes % 0.5 % (3.3-12.3) L 11/12/19 04:50 Eosinophils % 0.0 % (0-4.4) 11/12/19 04:50 Basophils % 0.0 % (0-1.3) 11/12/19 04:50 Megakaryocytes % Cancelled 11/09/19 10:22 Absolute Neutrophils 1.9 K/uL (1.8-8.0) 11/12/19 04:50 Segmented Neutrophils 87 % (40-80) H 11/11/19 07:33 Band Neutrophils 6 % (0-1) H 11/11/19 07:33 Absolute Lymphocytes 0.2 K/uL (0.7-4.9) L 11/12/19 04:50 Lymphocytes 6 % (15-42) L 11/11/19 07:33 Monocytes CUTTER GAS 11/11/19 07:33 Absolute Monocytes 0.0 K/uL (0.1-1.3) L 11/12/19 04:50 Absolute Eosinophils 0.0 K/uL (0-0.5) 11/12/19 04:50 Absolute Basophils 0.0 K/uL (0-0.5) 11/12/19 04:50 Metamyelocytes 1 % (0-0) H 11/11/19 07:33 Diff Path Review Yes 11/11/19 07:33 WBC/PLT Morphology Cancelled 11/09/19 10:22 Platelet Estimate Cancelled 11/09/19 10:22 Clumped Platelets Cancelled 11/09/19 10:22 Giant Platelets Cancelled 11/09/19 10:22 Anisocytosis 1+ 11/12/19 04:50 Rachael Cells 1+ 11/12/19 04:50 Elliptocytes 1+ 11/12/19 04:50 Schistocytes 1+ 11/12/19 04:50 Morphology Comment Noted (NOT SEEN) 11/12/19 04:50 PT 14.9 SECONDS (9.5-12.5) H 11/12/19 04:50 INR 1.27 11/12/19 04:50 APTT 32.9 SECONDS (24.3-36.9) 11/11/19 07:33 Fibrinogen 496 mg/dL (173-428) H 11/11/19 07:33 D-Dimer 6079 FEUng/mL (<500) H* 11/11/19 07:33 pH 7.46 (7.35-7.45) H 11/12/19 05:00 pCO2 27.0 mmHG (35-45) L 11/12/19 05:00 pO2 92.7 mmHG (75-100) 11/12/19 05:00 HCO3 18.7 mmol/L (22-28) L 11/12/19 05:00 Base Excess -4.5 mmol/L 11/12/19 05:00 Oxyhemoglobin 95.3 % (94-97) 11/12/19 05:00 ABG O2 Sat (Measured) 97.4 % (92-98.5) 11/12/19 05:00 ABG Carboxyhemoglobin 1.5 % (0-1.5) 11/12/19 05:00 ABG Methemoglobin 0.7 % (0-1.5) 11/12/19 05:00 Other Total Hgb 10.4 g/dl (12-18) L 11/12/19 05:00 Inspired O2 35.0 % 11/12/19 05:00 Sodium 146 mmol/L (136-145) H 11/12/19 04:50 Potassium 3.7 mmol/L (3.5-5.1) 11/12/19 04:50 Chloride 114 mmol/L (98-107) H 11/12/19 04:50 Carbon Dioxide 21 mmol/L (21-32) 11/12/19 04:50 BUN 59 mg/dL (7-18) H 11/12/19 04:50 Creatinine 1.81 mg/dL (0.55-1.3) H 11/12/19 04:50 Estimated GFR 27 mL/min (=/>90) L 11/12/19 04:50 Glucose 203 mg/dL (74-106) H 11/12/19 04:50 POC Glucose 194 mg/dl (65-120) H 11/12/19 05:55 Lactic Acid 2.1 mmol/L (0.4-2.0) H 11/09/19 09:24 Calcium 7.0 mg/dL (8.5-10.1) L 11/12/19 04:50 Magnesium 1.9 mg/dL (1.8-2.4) 11/09/19 05:30 Total Bilirubin 2.1 mg/dL (0.2-1.0) H 11/11/19 07:33 Direct Bilirubin 0.6 mg/dL (0-0.2) H 11/09/19 05:30 AST 31 U/L (15-37) 11/11/19 07:33 ALT 34 U/L (12-78) 11/11/19 07:33 Alkaline Phosphatase 78 U/L (45-117) 11/11/19 07:33 Lactate Dehydrogenase 260 U/L (84-246) H 11/11/19 07:33 Creatine Kinase 49 U/L (26-192) 11/09/19 05:30 CK-MB (CK-2) < 1.0 ng/mL (0.3-3.6) 11/09/19 05:30 Rapid Troponin I < 0.02 ng/mL (0.0-0.045) 11/09/19 05:30 NT-Pro-B Natriuret Pep 5999 pg/mL (<450) H 11/09/19 05:30 Serum Total Protein 4.9 g/dL (6.4-8.2) L 11/11/19 07:33 Albumin 2.2 g/dL (3.4-5.0) L D 11/11/19 07:33 Globulin 2.7 g/dL (2.3-3.5) 11/11/19 07:33 Albumin/Globulin Ratio 0.8 (1.1-1.8) L 11/11/19 07:33 Lipase 199 U/L (73-393) 11/09/19 05:30 Urine Color Dk yellow 11/09/19 10:35 Urine Appearance Turbid 11/09/19 10:35 Urine pH 5.0 (5.0-7.0) 11/09/19 10:35 Ur Specific [place] 1.020 (1.005-1.030) 11/09/19 10:35 Glucose (UA)(Auto) Negative (NEG) 11/09/19 10:35 Urine Ketones Negative (NEG) 11/09/19 10:35 Urine Blood Negative (NEG) 11/09/19 10:35 Urine Nitrite Negative (NEG) 11/09/19 10:35 Urine Bilirubin Negative (NEG) 11/09/19 10:35 Urine Urobilinogen 1.0 mg/dL (0.2-1.0) 11/09/19 10:35 Ur Leukocyte Esterase 1+ (NEG) H 11/09/19 10:35 Urine RBC 5-10 /HPF (NONE SEEN) H 11/09/19 10:35 Urine WBC 10-20 /HPF (<5) H 11/09/19 10:35 Ur Squamous Epith Cells 20-50 /HPF (NONE SEEN) H 11/09/19 10:35 Amorphous Sediment 3+ /HPF (NONE SEEN) H 11/09/19 10:35 Urine Bacteria >50 /HPF (<20) H 11/09/19 10:35 Fine Granular Casts >10 /LPF (NONE SEEN) 11/09/19 10:35 Urine Yeast Few (NONE SEEN) 11/09/19 10:35 Urine Culture Reflexed Not needed 11/09/19 10:35 Urine Total Protein 2+ (NEG) H 11/09/19 10:35 Vancomycin Trough 10.5 ug/mL (5.0-20.0) 11/10/19 20:30 ABO/Rh O POSITIVE 11/09/19 06:50 Solid Phase Ab Screen Negative 11/09/19 06:50 Assessment & Plan - Problems (Diagnosis) (1) Acute respiratory failure Current Visit: Yes Status: Acute (2) Hypoxia Current Visit: Yes Status: Acute (3) Hemoptysis Current Visit: Yes Status: Acute (4) Leukopenia Current Visit: Yes Status: Acute (5) Thrombocytopenia Current Visit: Yes Status: Acute (6) Chemotherapy induced neutropenia Current Visit: Yes Status: Acute (7) Diabetes Current Visit: No Status: Chronic Qualifiers: Diabetes mellitus type: type 2 Diabetes mellitus salvage determiner insulin use: without jail use Diabetes mellitus complication status: without complication Qualified Code(s): E11.9 - Type 2 diabetes mellitus without complications (8) Hypertension Current Visit: No Status: Chronic Plan: Acute hypoxic respiratory failure Respiratory distress Multifocal pneumonia Hemoptysis LGL Leukopenia Thrombocytopenia DM HTN h/o Perforated Gastric Ulcer Sepsis due to Pneumonia Hypoglycemia possibly due to sepsis Plan intubated on mechanical ventilator support on broad-spectrum IV antibiotic blood cultures and sputum cultures negative so far Pulmonology, cardiology, hematology consults appreciated Thrombocytopenia and leukopenia noted No active bleeding Monitor CBC daily Renal parameters slightly worsened Monitor BMP in a.m. Elevated the margin consistent with possible DIC GI/DVT prophylaxis Advanced directives DNR (Talked to Daughter ) Qualifiers: Hypertension type: essential hypertension Qualified Code(s): I10 - Essential (primary) hypertension (9) DIC (disseminated intravascular coagulation) Current Visit: Yes Status: Acute Plan: Multifocal pneumonia Acute hypoxic respiratory failure Respiratory distress Hemoptysis LGL Leukopenia Thrombocytopenia DM HTN h/o Perforated Gastric Ulcer Sepsis due to Pneumonia Hypoglycemia possibly due to sepsis DIC Plan Admitted to the ICU intubated on mechanical ventilator support on broad-spectrum IV antibiotic blood cultures and sputum cultures negative so far Pulmonology consult Appreciated Bronchodilators and steroids Will monitor CBC serially Consulted hematology appreciate recommendation Monitor renal parameters Patient was on oxygen therapy and steroids at home Weaned off pressors On amiodarone for AFib Patient has possible DIC with thrombocytopenia elevated D-dimer and fibrinogen watch closely for any bleeding Advanced directives DNR (Talked to Daughter ) Time Spent Managing Pts Care (In Minutes): 42
--- NOTE | 2019-11-12 16:12 | PN ---
Date of Progress Note: 11/12/2019 Ms. 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 She remains intubated. We have been treating her for atrial fibrillation with IV amiodarone. She also received 1 dose of digoxin, 1 dose of Lopre ssor. Today, she remains in atrial fibrillation but her rate is between 90 and 100. She remains int ubated, antibiotics are being used in addition to inhalers, Protonix, albumin. She will continue on IV amiodarone for now. We will continue to give her IV Lopressor 5 mg on an as-needed basis if her h eart rate goes over 110 as long as her blood pressure tolerate it. BALDEMAR/GERMAN Voice ID: [id number] Report ID: [id number]
--- NOTE | 2019-11-12 16:12 | PN ---
Date of Progress Note: 11/11/2019 Ms. Herman was admitted with history of diabetes, hypertension, aortic valve replacement, sepsis. She has leukemia. She is on chemotherapy. Has thrombocytopenia, was in rapid atrial fibrillation yeste rday. IV amiodarone was started. After a bolus and a drip 0.5 mg/hour, she converted to sinus rhyth m, but apparently overnight, she had some issues with respiration and had a respirator, got anxious, agitated, went back into atrial fibrillation. I recommended 1 dose of digoxin 0.5 mg as well as 5 mg of Lopressor IV x1 dose and she remained in atrial fibrillation but her rate is much better at 100. I will continue the IV amiodarone for now and continue intubation and other therapy. BALDEMAR/GERMAN Voice ID: [id number] Report ID: [id number]
[2019-11-12] MEDS: ACETAMINOPHEN 325 MG TABLET PO PRN (16:30)
[2019-11-12] MEDS: AMIODARONE HCL 200 MG TAB PO SCH (23:00)
[2019-11-13] MEDS: FENTANYL CITR 100 MCG/2 ML IV PRN ×3 (02:19→23:05)
[2019-11-13] MEDS: propofoL 1,000 MG/100 ML VIAL IV PRN (02:20)
[2019-11-13] MEDS: JEVITY 1.2 CAL LIQUID 1,000 ML BOT RTH SCH (02:21)
[2019-11-13 05:07] LABS: Absolute Lymphocytes (CBC) 0.1 K/uL (0.7-4.9); Basophils % 0.2 % (0-1.3); Lymphocytes % 10.4 % (15.3-44.8); MPV 9.8 fL (7.6-11.3); RBC Red Blood Cell Count 2.61 M/uL (3.86-4.86)
[2019-11-13 05:48] LABS: Arterial Blood Carboxyhemoglob 1.5 % (0-1.5); Blood Gas Oxyhemoglobin 95.8 % (94-97)
[2019-11-13 05:49] LABS: Magnesium 2.1 mg/dL (1.8-2.4); Phosphorus 3.3 mg/dL (2.5-4.9); Potassium 4.1 mmol/L (3.5-5.1)
[2019-11-13] MEDS: PANTOPRAZOLE 40 MG INJ IVP SCH ×2 (08:05→20:41)
[2019-11-13] MEDS: AMIODARONE HCL 200 MG TAB PO SCH ×2 (08:06→20:41)
[2019-11-13] MEDS: FUROSEMIDE 20 MG/ 2ML VIAL IV SCH ×2 (08:06→16:26)
[2019-11-13] MEDS: CEFEPIME/SWI 1gm 10 ML IV SCH (08:28)
--- NOTE | 2019-11-13 09:09 | RAD REPORT ---
EXAM DESCRIPTION: Kelsi Single View11/13/2019 6:04 am CLINICAL HISTORY: Shortness of breath COMPARISON: November 12, 2018 FINDINGS: Endotracheal tube has its tip 2 centimeters above the denise. Nasogastric tube present wit hin the stomach. Mild worsening in the left basilar consolidation. Mild worsening in the right basilar consolidation. Heart is mildly enlarged IMPRESSION: Mild worsening in the bilateral pulmonary opacities which may represent pneumonia. Small to moderate left pleural effusion suspected
--- NOTE | 2019-11-13 10:59 | RAD REPORT ---
EXAM DESCRIPTION: US - Chest - 11/13/2019 10:36 am CLINICAL HISTORY: LEft effusion check for loculation and poss thora Mild pleural effusion COMPARISON: Chest Single View dated 11/13/2019 FINDINGS: Small volume of left pleural fluid is noted.
--- NOTE | 2019-11-13 11:13 | P.PN ---
Subjective Date of Service: 11/13/19 Chief Complaint: Respiratory failure Subjective: No new changes Patient remain intubated. Off propofol this morning for breathing trial. Fever recorder last night. Blood pressure has improved. Patient is off pressors. Physical Examination - Vital Signs Temperature: 98 F Blood Pressure: 147/57 Pulse: 60 Respirations: 16 Pulse Ox (%): 100 - Physical Exam General: Unresponsive HEENT: Other (Intubated) Neck: Supple, JVD not distended Respiratory: Diminished (Bilateral), Crackles/rales (Bilateral bases) Cardiovascular: Regular rate/rhythm, Normal S1 S2, Edema (Bilateral upper extremity pitting edema) Capillary refill: <2 Seconds Gastrointestinal: Normal bowel sounds, Distended, Ascites Integumentary: Other (Blisters bilateral upper extremities) Neurological: Other (Unresponsive, no spontaneous limb movement. Does not obey commands.) Assessment And Plan - Current Problems (Diagnosis) (1) Acute respiratory failure Current Visit: Yes Status: Acute (2) Chemotherapy induced neutropenia Current Visit: Yes Status: Acute (3) DIC (disseminated intravascular coagulation) Current Visit: Yes Status: Acute (4) Septic shock Current Visit: Yes Status: Acute (5) Thrombocytopenia Current Visit: Yes Status: Acute (6) Diabetes Current Visit: No Status: Chronic Qualifiers: Diabetes mellitus type: type 2 Diabetes mellitus machine long goods helper insulin use: without machine long goods helper use Diabetes mellitus complication status: without complication Qualified Code(s): E11.9 - Type 2 diabetes mellitus without complications (7) Atrial fibrillation Current Visit: Yes Status: Acute (8) Anemia Current Visit: Yes Status: Acute - Plan Continue mechanical ventilation. Sedation vacation and weaning trials as tolerated. All cultures have yielded no growth. Continue current antibiotics given severe immuno suppression. Chest U.S. to assess size of pleural effusion for thoracentesis. She will need platelet transfusion for a target platelet count of 50,000 prior to thoracentesis. Continue tube feeding IV Lasix for diuresis as her blood pressure will tolerate. IV protonix. Patient is currently in sinus rhythm. Amiodarone drip changed to amiodarone via NGT. Hematology oncology input appreciated. Patient may need Neupogen given persistent neutropenia. Poor prognosis. Daughter updated on current medical condition and they want to pursue aggressive measures for now. She is DNR. Time Spent Managing PTS Care (In Minutes): 65 (Critical care time spent is 42 minutes.)
[2019-11-13 11:52] LABS: Magnesium 2.1 mg/dL (1.8-2.4); Phosphorus 2.7 mg/dL (2.5-4.9)
[2019-11-13] MEDS ORDERED: Pharmacy Consult 1 EA XX PRN (12:00)
--- NOTE | 2019-11-13 12:02 | P.PN ---
Subjective Date of Service: 11/13/19 Chief Complaint: Respiratory failure No change unable to wean the patient off the ventilator x-rays worse patient is still thrombocytopenic renal failure Review of Systems is unable to be obtained Physical Examination - Vital Signs Temperature: 98 F Blood Pressure: 147/57 Pulse: 60 Respirations: 16 Pulse Ox (%): 100 - Physical Exam General: Alert Respiratory: Diminished (Diminished air entry worse in the left side) Cardiovascular: No edema, Regular rate/rhythm, Edema (Patient has edema of the arms) Gastrointestinal: Normal bowel sounds Assessment & Plan - Problems (Diagnosis) (1) Thrombocytopenia Current Visit: Yes Status: Acute Plan: Severe most likely DIC fibrinogen elevated Dc vancomycin could be a side effect cultures are so far negative platelet transfusion patient is not on any heparin products D-dimer elevated PT also elevated chest x-ray shows left lung infiltrate renal function improving (2) Respiratory failure Current Visit: Yes Status: Acute Plan: Presume secondary to pneumonia chest x-rays worse ultrasound did not show any significant effusions CT scan ordered patient is pancytopenic change antibiotics to meropenem vancomycin repeat sputum culture consider transfer to an LTAC facility discuss with the daughter and the patient's grandson who is a nurse oxygenation satisfactory only on 35% O2 patient is in sinus rhythm on amiodarone Qualifiers: Chronicity: acute
[2019-11-13] MEDS ORDERED: Meropenem 500 MG in NA CHLORIDE 0.9% 100 ML IV SCH (13:00)
--- NOTE | 2019-11-13 13:46 | RAD REPORT ---
EXAM DESCRIPTION: CT - Thorax Wo Con - 11/13/2019 1:37 pm CLINICAL HISTORY: sob COMPARISON: November 09, 2019 TECHNIQUE: Computed axial tomography of the chest was obtained. Contrast was not requested. All CT scans are performed using dose optimization technique as appropriate and may include automated exposure control or mA/KV adjustment according to patient size. FINDINGS: The evaluation of mediastinum, tremaine and vessels is limited secondary to lack of IV contras t administration. The lingular consolidation has significantly improved. Mild left lower lobe atelectasis. The right lower lobe consolidation has also significantly improved. A small right pleural effusion. Small to moderate loculated left pleural effusion. Endotracheal tube is tip well above the denise. Nasogastric tube present stomach IMPRESSION: Bilateral pneumonia has significantly improved Small right pleural effusion Small to moderate loculated left pleural effusion
[2019-11-13] MEDS: Meropenem 500 MG in NA CHLORIDE 0.9% 100 ML IV SCH ×2 (14:03→20:42)
[2019-11-13] MEDS: VANCOMYCIN 1.75 GM in NA CHLORIDE 0.9% 500 ML IVPB SCH (14:04)
[2019-11-13] MEDS: LORazepam 2 MG/ML VIAL IV PRN ×2 (14:07→20:43)
--- NOTE | 2019-11-13 14:49 | CON ---
Date of Consultation: 11/10/[address] Brock on 11/09/2019. I saw the patient on 11/10/2019. Reason For Consultation: Respiratory failure and atrial fibrillation. History Of Present Illness: Ms. Herman is an 84-year-old woman, has a history of diabetes, hypertensi on, aortic valve replacement in the past. She also has a history of rheumatoid arthritis, gastroesop hageal reflux disease, dyslipidemia. Came in with respiratory failure, requiring mechanical intubati on. Her last blood gases were pO2 of 142, pCO2 of 37, pH of 7.24. She is normotensive on Levophed, but atrial fibrillation, rate of 160. No previous history of atrial fibrillation before. Past Medical History: As stated above. Allergies: INCLUDE CIPROFLOXACIN, NITROFURANTOIN, AND LISINOPRIL. Social History: Positive for being a DNR. Review of Systems: Negative. Family History: Noncontributory. Medications: At home include Lipitor, Neurontin, Coreg, Levaquin, acyclovir, glimepiride, metformin, methotrexate, and Protonix. Physical Examination: General: She is in atrial fibrillation, rate of 160, intubated. Blood pressure 113/76, o n Levophed. She weighed 209 pounds. HEENT: Negative. Neck: Supple with no bruit. Chest: Clear on the right. On the left side, she had crackles and wheezes. Cardiac: Revealed atrial fibrillation. No murmurs, gallops, or rubs. Abdomen: Benign. Extremities: Revealed no clubbing, cyanosis, or edema. Diagnostic Data: Troponin was negative. BNP was 5999. White count was . EKG showed atri al fibrillation. Impression And Plan: Atrial fibrillation, new onset, probably secondary to combination of respirator y failure and Levophed. She is borderline as her blood pressure and I not think amiodaron e bolus and drip is course of therapy for now. I will also get an echocardiogram. Regard ing her respiratory failure, I agree with continuing the inhalers and antibiotics, Protonix, albumin, as well as the Levophed wean her off the Levophed. Other workup is pending regarding her elevated D-dimer. We will continue to follow her. Her blood pressure is fairly well controlled now . She has dyslipidemia, for which she takes Lipitor . We will resume the medication when she is extubated. BALDEMAR/GERMAN Voice ID: [id number] Report ID: [id number]
[2019-11-13] MEDS: ACETAMINOPHEN 325 MG TABLET PO PRN (16:12)
[2019-11-13] MEDS: TBO-FILGRASTIM 480 MCG/0.8 ML SYR SQ SCH (16:27)
[2019-11-13] MEDS ORDERED: Meropenem 500 MG VIAL IV SCH (17:00)
[2019-11-13] MEDS ORDERED: NA CHLORIDE 0.9% 50 ML ONE (17:27)
[2019-11-13] MEDS ORDERED: NA CHLORIDE 0.9% 100 ML ONE (20:44)
[2019-11-14 00:28] LABS: MPV 9.7 fL (7.6-11.3)
[2019-11-14 00:31] LABS: Platelet Estimate ND
[2019-11-14] MEDS: MIDAZOLAM HCL 2 MG/2 ML INJ IV PRN (01:02)
[2019-11-14] MEDS: LORazepam 2 MG/ML VIAL IV PRN (03:16)
[2019-11-14 05:11] LABS: Absolute Lymphocytes (CBC) 0.2 K/uL (0.7-4.9); Basophils % 0.6 % (0-1.3); Hematocrit 28.2 % (36.0-45.0); MPV 9.7 fL (7.6-11.3); RBC Red Blood Cell Count 3.23 M/uL (3.86-4.86)
[2019-11-14 05:24] LABS: Bilirubin Total 3.3 mg/dL (0.2-1.0); Protein, Total 5.5 g/dL (6.4-8.2)
[2019-11-14] MEDS: ACETAMINOPHEN 325 MG TABLET PO PRN ×2 (07:19→18:12)
[2019-11-14] MEDS: Meropenem 500 MG in NA CHLORIDE 0.9% 100 ML IV SCH ×2 (08:24→20:53)
[2019-11-14] MEDS: AMIODARONE HCL 200 MG TAB PO SCH ×2 (08:24→20:54)
[2019-11-14] MEDS ORDERED: CEFEPIME/SWI 2gm 2 GM/20 ML SYR IV SCH (09:00)
[2019-11-14] MEDS: TBO-FILGRASTIM 480 MCG/0.8 ML SYR SQ SCH (09:00)
[2019-11-14] MEDS: PANTOPRAZOLE 40 MG INJ IVP SCH (09:01)
--- NOTE | 2019-11-14 12:15 | P.PN ---
Subjective Date of Service: 11/14/19 Chief Complaint: Respiratory failure Patient's condition is stable has loculated effusion on the left side has some fever Review of Systems is unable to be obtained Physical Examination - Vital Signs Temperature: 100.1 F Blood Pressure: 141/54 Pulse: 67 Respirations: 20 Pulse Ox (%): 99 - Physical Exam General: Unresponsive Neck: Supple Respiratory: Clear to auscultation bilaterally, Diminished Cardiovascular: No edema, Regular rate/rhythm Gastrointestinal: Normal bowel sounds, Soft and benign - Studies Microbiology Data (last 24 hrs): 11/09/19 05:45 Blood - Blood Aerobic Blood Culture - Final No growth in 5 days. 11/09/19 05:45 Blood - Blood Anaerobic Blood Culture - Final No growth in 5 days. 11/09/19 05:45 Blood - Blood Aerobic Blood Culture - Final No growth in 5 days. 11/09/19 05:45 Blood - Blood Anaerobic Blood Culture - Final No growth in 5 days. Assessment & Plan - Problems (Diagnosis) (1) Thrombocytopenia Current Visit: Yes Status: Acute Plan: Patient has pancytopenia unresponsive to platelet infusions (2) Respiratory failure Current Visit: Yes Status: Acute Plan: Respiratory failure on a ventilator unresponsive multiple loculated effusions on the left side cultures negative will repeat sputum cultures and blood cultures having some fever on meropenem vancomycin also consider adding Diflucan discuss with the daughter probably plan to withdraw care prognosis is poor did not want to transfer to an LTAC patient is hypernatremic Dc IV Lasix start on increase water flushes patient still has minimal oxygen requirements
--- NOTE | 2019-11-14 12:17 | P.PN ---
Subjective Date of Service: 11/14/19 Chief Complaint: Respiratory failure No major changes from yesterday. Patient remain intubated. Patient was sedated earlier with a dose of versed. She had fever up to 102. Blood pressure has improved and stable. Patient is off pressors. CT chest result reviewed and reporting [id number] loculated left pleural effusion and small right pleural effusion. White cell counts dropped further today despite starting Neupogen yesterday. Small BM reported. Physical Examination - Vital Signs Temperature: 100.1 F Blood Pressure: 141/54 Pulse: 67 Respirations: 20 Pulse Ox (%): 99 - Physical Exam General: Unresponsive HEENT: Other (Intubated) Neck: JVD not distended Respiratory: Other (Bilateral upper airway transmitted sounds.) Cardiovascular: Edema (Bilateral upper extremities) Gastrointestinal: Hypoactive, Soft and benign, Distended (Mild) Musculoskeletal: No swelling, No tenderness Neurological: Other (Unresponsive, withdraw extremities to tactile stimuli.) - Studies Microbiology Data (last 24 hrs): 11/09/19 05:45 Blood - Blood Aerobic Blood Culture - Final No growth in 5 days. 11/09/19 05:45 Blood - Blood Anaerobic Blood Culture - Final No growth in 5 days. 11/09/19 05:45 Blood - Blood Aerobic Blood Culture - Final No growth in 5 days. 11/09/19 05:45 Blood - Blood Anaerobic Blood Culture - Final No growth in 5 days. Assessment And Plan - Current Problems (Diagnosis) (1) Acute respiratory failure Current Visit: Yes Status: Acute (2) Chemotherapy induced neutropenia Current Visit: Yes Status: Acute (3) DIC (disseminated intravascular coagulation) Current Visit: Yes Status: Acute (4) Septic shock Current Visit: Yes Status: Acute (5) Thrombocytopenia Current Visit: Yes Status: Acute (6) Diabetes Current Visit: No Status: Chronic Qualifiers: Diabetes mellitus type: type 2 Diabetes mellitus mcc insulin use: without long chain beamer use Diabetes mellitus complication status: without complication Qualified Code(s): E11.9 - Type 2 diabetes mellitus without complications (7) Atrial fibrillation Current Visit: Yes Status: Acute (8) Anemia Current Visit: Yes Status: Acute (9) Bilateral pneumonia Current Visit: Yes Status: Acute - Plan Continue mechanical ventilation. Sedation vacation and weaning trials as tolerated. All cultures have yielded no growth. Continue antibiotics. Not much pleural effusion to tap Status post PRBC transfusion. Hemoglobin is up to 9.4 Platelet count has dropped further despite platelet transfusion yesterday. Patient started on Neupogen. Monitor CBC Continue tube feeding. Check residual. Lasix discontinued. Continue IV protonix. Patient is currently in sinus rhythm. Continue amiodarone via NGT. Hematology oncology input appreciated. Patient has been little clinical response to aggressive measures. Poor prognosis. She is DNR. Family wants to continue aggressive measures for now.
[2019-11-14] MEDS: FLUCONAZOLE 400 MG IVPB 400 MG/200 ML BAG IV SCH (13:03)
[2019-11-14] MEDS: HYDRALAZINE HCL 20 MG/ML VIAL IV PRN (18:12)
[2019-11-15] MEDS: HYDRALAZINE HCL 20 MG/ML VIAL IV PRN ×2 (00:06→21:06)
[2019-11-15] MEDS: VANCOMYCIN 1.75 GM in NA CHLORIDE 0.9% 500 ML IVPB SCH (01:16)
[2019-11-15] MEDS: MIDAZOLAM HCL 2 MG/2 ML INJ IV PRN (01:23)
[2019-11-15 05:18] LABS: Magnesium 1.9 mg/dL (1.8-2.4); Phosphorus 2.8 mg/dL (2.5-4.9); Potassium 4.2 mmol/L (3.5-5.1)
[2019-11-15 05:49] LABS: Absolute Lymphocytes (CBC) 0.1 K/uL (0.7-4.9); Basophils % 0.5 % (0-1.3); Hematocrit 28.3 % (36.0-45.0); Lymphocytes % 33.9 % (15.3-44.8); MPV 10.7 fL (7.6-11.3); RBC Red Blood Cell Count 3.21 M/uL (3.86-4.86)
[2019-11-15 06:58] LABS: Platelet Estimate DECR; Urine White Blood Cell Casts OK
[2019-11-15] MEDS: D5W 1,000 ML IV SCH ×2 (07:00→08:33)
[2019-11-15] MEDS: AMIODARONE HCL 200 MG TAB PO SCH ×2 (08:21→21:05)
[2019-11-15] MEDS: Meropenem 500 MG in NA CHLORIDE 0.9% 100 ML IV SCH ×2 (08:22→21:05)
[2019-11-15] MEDS: PANTOPRAZOLE 40 MG INJ IVP SCH (08:22)
[2019-11-15] MEDS: TBO-FILGRASTIM 480 MCG/0.8 ML SYR SQ SCH (08:23)
[2019-11-15] MEDS ORDERED: AMLODIPINE 2.5 MG TAB ONE (08:28)
[2019-11-15] MEDS: AMLODIPINE 5 MG TAB PO SCH (09:16)
--- NOTE | 2019-11-15 12:04 | P.PN ---
Subjective Date of Service: 11/15/19 Chief Complaint: Respiratory failure No major changes. Patient remain intubated. Goof urine output. Nurse reports patient has been more responsive. Blood pressure has improved and patient is actually hypertensive. White cell counts continued to trend down despite Neupogen. Small BM reported. Physical Examination - Vital Signs Temperature: 100.6 F Blood Pressure: 172/69 Pulse: 68 Respirations: 17 Pulse Ox (%): 100 - Physical Exam General: In no apparent distress, Unresponsive HEENT: Other (Intubated) Neck: Supple Respiratory: Clear to auscultation bilaterally, Normal air movement Cardiovascular: Regular rate/rhythm, Edema (Bilateral upper extremities) Gastrointestinal: Hypoactive, Soft and benign, Distended (Mildly distended.) Integumentary: Rash(es) (Blisters on bilateral upper extremities) Neurological: Other (Unresponse. She moves all extremities spontaneously.) - Studies Microbiology Data (last 24 hrs): 11/09/19 05:45 Blood - Blood Aerobic Blood Culture - Final No growth in 5 days. 11/09/19 05:45 Blood - Blood Anaerobic Blood Culture - Final No growth in 5 days. 11/09/19 05:45 Blood - Blood Aerobic Blood Culture - Final No growth in 5 days. 11/09/19 05:45 Blood - Blood Anaerobic Blood Culture - Final No growth in 5 days. Assessment And Plan - Current Problems (Diagnosis) (1) Acute respiratory failure Current Visit: Yes Status: Acute (2) Chemotherapy induced neutropenia Current Visit: Yes Status: Acute (3) DIC (disseminated intravascular coagulation) Current Visit: Yes Status: Acute (4) Septic shock Current Visit: Yes Status: Acute (5) Thrombocytopenia Current Visit: Yes Status: Acute (6) Diabetes Current Visit: No Status: Chronic Qualifiers: Diabetes mellitus type: type 2 Diabetes mellitus halfway insulin use: without manager terminal use Diabetes mellitus complication status: without complication Qualified Code(s): E11.9 - Type 2 diabetes mellitus without complications (7) Atrial fibrillation Current Visit: Yes Status: Acute (8) Anemia Current Visit: Yes Status: Acute (9) Bilateral pneumonia Current Visit: Yes Status: Acute - Plan Continue mechanical ventilation. Sedation vacation and weaning trials as tolerated. Continue antibiotics. Not much pleural effusion to tap Status post PRBC transfusion. Hemoglobin is stable at 9.4 Patient started on Neupogen. Monitor CBC Continue tube feeding. Check residual. Continue IV protonix. Patient is currently in sinus rhythm. Continue amiodarone via NGT. Hematology oncology input appreciated. Patient has been little clinical response to aggressive measures. Poor prognosis. She is DNR. Family wants to continue aggressive measures for now.
--- NOTE | 2019-11-15 12:07 | P.PN ---
Subjective Date of Service: 11/15/19 Chief Complaint: Respiratory failure Patient is improving more responsive and cooperative hypernatremic blood pressure is not elevated tolerating tube feeds minimal oxygen still has some fever Review of Systems is unable to be obtained Physical Examination - Vital Signs Temperature: 100.6 F Blood Pressure: 172/69 Pulse: 68 Respirations: 17 Pulse Ox (%): 100 - Physical Exam General: Unresponsive Respiratory: Clear to auscultation bilaterally, Diminished Cardiovascular: No edema, Normal S1 S2 Assessment & Plan - Problems (Diagnosis) (1) Thrombocytopenia Current Visit: Yes Status: Acute Plan: No change in thrombocytopenia (2) Respiratory failure Current Visit: Yes Status: Acute Plan: Doing well plan to wean off the ventilator treat hypernatremia be D5 water patient is neutropenic patient is at risk for fungal infections also has loculated effusions on the left side family members do not want her transfer to an LTAC or any other facility
--- NOTE | 2019-11-15 12:29 | RAD REPORT ---
EXAM DESCRIPTION: Kelsi Single View11/15/2019 12:23 pm CLINICAL HISTORY: Chest pain COMPARISON: November 13 FINDINGS: Endotracheal tube has its tip well above the denise. PICC line has its tip pointing latera lly perhaps against the wall of the superior vena cava. Nasogastric tube in place Mild improvement in bilateral pulmonary opacities which may represent pneumonia Small to moderate left and small right pleural effusions
[2019-11-15] MEDS: FLUCONAZOLE 400 MG IVPB 400 MG/200 ML BAG IV SCH (12:35)
[2019-11-15] MEDS: JEVITY 1.2 CAL LIQUID 1,000 ML BOT RTH SCH (15:08)
[2019-11-15] MEDS: ACETAMINOPHEN 325 MG TABLET PO PRN (16:50)
[2019-11-15] MEDS ORDERED: HYDRALAZINE HCL 20 MG/ML VIAL IV ONE (23:36)
[2019-11-16] MEDS: D5W 1,000 ML IV SCH (00:08)
[2019-11-16 05:02] LABS: Hematocrit 29.1 % (36.0-45.0); MPV 10.3 fL (7.6-11.3)
[2019-11-16 05:16] LABS: Potassium 3.9 mmol/L (3.5-5.1)
[2019-11-16 07:07] LABS: Blood Morphology Comment NOT SEEN (NOT SEEN); Platelet Estimate DECR
--- NOTE | 2019-11-16 08:03 | RAD REPORT ---
EXAM DESCRIPTION: Jayat Single View11/16/2019 5:58 am CLINICAL HISTORY: Pneumonia COMPARISON: November 15, 2019 FINDINGS: Progression in the opacification of the left hemithorax. No significant change in the righ t basilar pulmonary opacities. Heart remains enlarged Lines and tubes in good position IMPRESSION: Progression in the opacification of the left hemithorax. This may represent enlarging p leural effusion with worsening pneumonia/atelectasis
[2019-11-16] MEDS: AMLODIPINE 5 MG TAB PO SCH (09:00)
[2019-11-16] MEDS ORDERED: AMLODIPINE 2.5 MG TAB ONE (09:22)
[2019-11-16] MEDS: TBO-FILGRASTIM 480 MCG/0.8 ML SYR SQ SCH (09:27)
[2019-11-16] MEDS: PANTOPRAZOLE 40 MG INJ IVP SCH (09:27)
[2019-11-16] MEDS: Meropenem 500 MG in NA CHLORIDE 0.9% 100 ML IV SCH ×2 (09:27→20:04)
[2019-11-16] MEDS: AMIODARONE HCL 200 MG TAB PO SCH ×2 (09:28→20:04)
[2019-11-16] MEDS: HYDRALAZINE HCL 20 MG/ML VIAL IV PRN ×3 (10:33→21:00)
--- NOTE | 2019-11-16 11:08 | P.PN ---
Subjective Date of Service: 11/16/19 Chief Complaint: Respiratory failure Subjective: No new changes (Still on ventilator support Off sedation Not making any purposeful movements) Review of Systems is unable to be obtained Physical Examination - Vital Signs Temperature: 99.4 F Blood Pressure: 168/83 Pulse: 77 Respirations: 19 Pulse Ox (%): 98 - Physical Exam General: Other (Drowsy) HEENT: Atraumatic, Normocephalic Neck: Supple Respiratory: Clear to auscultation bilaterally, Crackles/rales Cardiovascular: Regular rate/rhythm Capillary refill: <2 Seconds Gastrointestinal: Soft and benign, W/out hepatosplenomegaly Musculoskeletal: No clubbing, Swelling Integumentary: Skin breakdown, Skin lesion, Erythema Neurological: Other ( altered mental status) Lymphatics: No axilla or inguinal lymphadenopathy External genitalia: Deferred Rectal: Deferred - Studies Laboratory Last Values WBC < 0.5 K/uL (4.3-10.9) L* D 11/16/19 04:35 RBC 3.30 M/uL (3.86-4.86) L 11/16/19 04:35 Hgb 9.4 g/dL (12.0-15.0) L 11/16/19 04:35 Hct 29.1 % (36.0-45.0) L 11/16/19 04:35 MCV 88.0 fL (80-100) 11/16/19 04:35 MCH 28.6 pg (27.0-35.0) 11/16/19 04:35 MCHC 32.5 g/dL (32.0-36.0) 11/16/19 04:35 RDW 17.8 % (12.1-15.2) H 11/16/19 04:35 Plt Count 17 K/uL (152-406) L* D 11/16/19 04:35 MPV 10.3 fL (7.6-11.3) 11/16/19 04:35 Plt Distribution Width Cancelled 11/09/19 10:22 Neutrophils % FARM MARK[employer]ER 11/16/19 04:35 Lymphocytes % FARM MARK[employer]ER 11/16/19 04:35 Monocytes % 2.4 % (3.3-12.3) L 11/15/19 04:50 Eosinophils % 7.6 % (0-4.4) H 11/15/19 04:50 Basophils % 0.5 % (0-1.3) 11/15/19 04:50 Megakaryocytes % Cancelled 11/09/19 10:22 Absolute Neutrophils FARM MARK[employer]ER 11/16/19 04:35 Segmented Neutrophils 40 % (40-80) 11/16/19 04:35 Band Neutrophils 6 % (0-1) H 11/11/19 07:33 Absolute Lymphocytes FARM MARK[employer]ER 11/16/19 04:35 Lymphocytes 40 % (15-42) 11/16/19 04:35 Monocytes 4 % (0-10) 11/16/19 04:35 Absolute Monocytes FARM MARK[employer]ER 11/16/19 04:35 Eosinophils 16 % (0-3) H 11/16/19 04:35 Absolute Eosinophils FARM MARK[employer]ER 11/16/19 04:35 Absolute Basophils [employer]ARM MARK[employer] 11/16/19 04:35 Metamyelocytes 1 % (0-0) H 11/11/19 07:33 Diff Path Review Yes 11/11/19 07:33 WBC/PLT Morphology Cancelled 11/09/19 10:22 Platelet Estimate Cancelled 11/09/19 10:22 Clumped Platelets Cancelled 11/09/19 10:22 Giant Platelets Cancelled 11/09/19 10:22 Anisocytosis 1+ 11/12/19 04:50 Rachael Cells 1+ 11/12/19 04:50 Elliptocytes 1+ 11/12/19 04:50 Schistocytes 1+ 11/12/19 04:50 Morphology Comment Not seen (NOT SEEN) 11/16/19 04:35 PT 14.9 SECONDS (9.5-12.5) H 11/12/19 04:50 INR 1.27 11/12/19 04:50 APTT 32.9 SECONDS (24.3-36.9) 11/11/19 07:33 Fibrinogen 496 mg/dL (173-428) H 11/11/19 07:33 D-Dimer 6079 FEUng/mL (<500) H* 11/11/19 07:33 pH 7.39 (7.35-7.45) 11/13/19 05:00 pCO2 39.3 mmHG (35-45) 11/13/19 05:00 pO2 105.0 mmHG (75-100) H 11/13/19 05:00 HCO3 23.2 mmol/L (22-28) 11/13/19 05:00 Base Excess -1.0 mmol/L 11/13/19 05:00 Oxyhemoglobin 95.8 % (94-97) 11/13/19 05:00 ABG O2 Sat (Measured) 98.0 % (92-98.5) 11/13/19 05:00 ABG Carboxyhemoglobin 1.5 % (0-1.5) 11/13/19 05:00 ABG Methemoglobin 0.7 % (0-1.5) 11/13/19 05:00 Other Total Hgb 7.8 g/dl (12-18) L 11/13/19 05:00 Inspired O2 35.0 % 11/13/19 05:00 Sodium 146 mmol/L (136-145) H 11/16/19 04:35 Potassium 3.9 mmol/L (3.5-5.1) 11/16/19 04:35 Chloride 111 mmol/L (98-107) H 11/16/19 04:35 Carbon Dioxide 29 mmol/L (21-32) 11/16/19 04:35 BUN 45 mg/dL (7-18) H 11/16/19 04:35 Creatinine 1.25 mg/dL (0.55-1.3) 11/16/19 04:35 Estimated GFR 41 mL/min (=/>90) L 11/16/19 04:35 Glucose 234 mg/dL (74-106) H 11/16/19 04:35 POC Glucose 193 mg/dl (65-120) H 11/15/19 00:18 Lactic Acid 2.1 mmol/L (0.4-2.0) H 11/09/19 09:24 Calcium 7.7 mg/dL (8.5-10.1) L 11/16/19 04:35 Phosphorus 2.8 mg/dL (2.5-4.9) 11/15/19 04:50 Magnesium 1.9 mg/dL (1.8-2.4) 11/15/19 04:50 Total Bilirubin 3.3 mg/dL (0.2-1.0) H 11/14/19 04:45 Direct Bilirubin 0.6 mg/dL (0-0.2) H 11/09/19 05:30 AST 51 U/L (15-37) H 11/14/19 04:45 ALT 49 U/L (12-78) 11/14/19 04:45 Alkaline Phosphatase 186 U/L (45-117) H D 11/14/19 04:45 Lactate Dehydrogenase 260 U/L (84-246) H 11/11/19 07:33 Creatine Kinase 49 U/L (26-192) 11/09/19 05:30 CK-MB (CK-2) < 1.0 ng/mL (0.3-3.6) 11/09/19 05:30 Rapid Troponin I < 0.02 ng/mL (0.0-0.045) 11/09/19 05:30 NT-Pro-B Natriuret Pep 5999 pg/mL (<450) H 11/09/19 05:30 Serum Total Protein 5.5 g/dL (6.4-8.2) L 11/14/19 04:45 Albumin 2.0 g/dL (3.4-5.0) L 11/14/19 04:45 Globulin 3.5 g/dL (2.3-3.5) 11/14/19 04:45 Albumin/Globulin Ratio 0.6 (1.1-1.8) L 11/14/19 04:45 Lipase 199 U/L (73-393) 11/09/19 05:30 Urine Color Dk yellow 11/09/19 10:35 Urine Appearance Turbid 11/09/19 10:35 Urine pH 5.0 (5.0-7.0) 11/09/19 10:35 Ur Specific Alden 1.020 (1.005-1.030) 11/09/19 10:35 Glucose (UA)(Auto) Negative (NEG) 11/09/19 10:35 Urine Ketones Negative (NEG) 11/09/19 10:35 Urine Blood Negative (NEG) 11/09/19 10:35 Urine Nitrite Negative (NEG) 11/09/19 10:35 Urine Bilirubin Negative (NEG) 11/09/19 10:35 Urine Urobilinogen 1.0 mg/dL (0.2-1.0) 11/09/19 10:35 Ur Leukocyte Esterase 1+ (NEG) H 11/09/19 10:35 Urine RBC 5-10 /HPF (NONE SEEN) H 02/20/20 10:35 Urine WBC 10-20 /HPF (<5) H 11/09/19 10:35 Ur Squamous Epith Cells 20-50 /HPF (NONE SEEN) H 11/09/19 10:35 Amorphous Sediment 3+ /HPF (NONE SEEN) H 11/09/19 10:35 Urine Bacteria >50 /HPF (<20) H 11/09/19 10:35 Fine Granular Casts >10 /LPF (NONE SEEN) 11/09/19 10:35 Urine Yeast Few (NONE SEEN) 11/09/19 10:35 Urine Culture Reflexed Not needed 11/09/19 10:35 Urine Total Protein 2+ (NEG) H 11/09/19 10:35 Vancomycin Trough 12.4 ug/mL (5.0-20.0) 11/15/19 00:15 ABO/Rh O POSITIVE 11/13/19 15:55 Solid Phase Ab Screen Negative 11/13/19 15:55 Crossmatch See Detail 11/13/19 15:55 Assessment & Plan - Problems (Diagnosis) (1) Acute respiratory failure Current Visit: Yes Status: Acute (2) Hypoxia Current Visit: Yes Status: Acute (3) Hemoptysis Current Visit: Yes Status: Acute (4) Leukopenia Current Visit: Yes Status: Acute (5) Thrombocytopenia Current Visit: Yes Status: Acute (6) Chemotherapy induced neutropenia Current Visit: Yes Status: Acute (7) Diabetes Current Visit: No Status: Chronic Qualifiers: Diabetes mellitus type: type 2 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 jail use Diabetes mellitus complication status: without complication Qualified Code(s): E11.9 - Type 2 diabetes mellitus without complications (8) Hypertension Current Visit: No Status: Chronic Qualifiers: Hypertension type: essential hypertension Qualified Code(s): I10 - Essential (primary) hypertension (9) DIC (disseminated intravascular coagulation) Current Visit: Yes Status: Acute Plan: Multifocal pneumonia Acute hypoxic respiratory failure Respiratory distress Hemoptysis LGL Leukopenia Thrombocytopenia DM HTN h/o Perforated Gastric Ulcer Sepsis due to Pneumonia Hypoglycemia possibly due to sepsis DIC Plan Still on mechanical ventilator support on broad-spectrum IV antibiotic blood cultures and sputum cultures negative so far Pulmonology, hematology consults Appreciated Chest x-ray findings noted with worsening of opacity Consulted hematology appreciate recommendation Monitor renal parameters On amiodarone for AFib Wound care consult appreciated Advanced directives DNR (Talked to Daughter ) Case discussed with Dr. Yan Plan to continue ventilator management till Wednesday Time Spent Managing Pts Care (In Minutes): 45
[2019-11-16] MEDS: FLUCONAZOLE 400 MG IVPB 400 MG/200 ML BAG IV SCH (12:48)
[2019-11-16] MEDS: VANCOMYCIN 1.75 GM in NA CHLORIDE 0.9% 500 ML IVPB SCH (13:07)
[2019-11-16] MEDS: FENTANYL CITR 100 MCG/2 ML IV PRN (15:20)
[2019-11-16] MEDS ORDERED: LABETALOL 20 MG/4ML SYRINGE IV ONE (15:47)
[2019-11-16] MEDS: ACETAMINOPHEN 650MG/RECT SUPP PR PRN (15:54)
[2019-11-16] MEDS: JEVITY 1.2 CAL LIQUID 1,000 ML BOT RTH SCH (18:01)
[2019-11-17] MEDS: HYDRALAZINE HCL 20 MG/ML VIAL IV PRN (01:00)
[2019-11-17] MEDS ORDERED: DOXAZOSIN 2 MG TAB PO ONE (01:26)
[2019-11-17] MEDS: ACETAMINOPHEN 650MG/RECT SUPP PR PRN ×2 (05:18→14:11)
[2019-11-17 05:54] LABS: Potassium 4.5 mmol/L (3.5-5.1)
[2019-11-17 05:58] LABS: Absolute Lymphocytes (CBC) 0.3 K/uL (0.7-4.9); Basophils % 0.6 % (0-1.3); Hematocrit 31.9 % (36.0-45.0); Lymphocytes % 34.6 % (15.3-44.8); MPV 9.9 fL (7.6-11.3); RBC Red Blood Cell Count 3.67 M/uL (3.86-4.86)
--- NOTE | 2019-11-17 08:11 | RAD REPORT ---
EXAM DESCRIPTION: RAD - Chest Single View - 11/17/2019 6:26 am CLINICAL HISTORY: Pneumonia COMPARISON: Chest Single View dated 11/16/2019; Chest Single View dated 11/15/2019; Thorax Wo Con date d 11/13/2019 TECHNIQUE: AP portable chest image was obtained 11/17/2019 6:26 am . FINDINGS: Left lung field pleural and parenchymal opacification unchanged from comparison. Left hear t border and left hemidiaphragm remain obscured. Patchy right base opacification also stable. Small r ight-sided pleural effusion is likely present. ET tube, NG tube and left-sided PICC line remain in place in good position. Heart is mostly obscured but does not appear enlarged. No new or progressive vascular finding. No si gnificant failure or volume overload suspected. No pneumothorax. IMPRESSION: Extensive left-side pleural and parenchymal opacification similar to comparison. Minimal right base pleural fluid and parenchymal opacification also stable. Tubes and lines in good position.
[2019-11-17 08:53] LABS: Anisocytosis 1+; Blood Morphology Comment NOTED (NOT SEEN); Elliptocytes 1+; Platelet Estimate DECR; Poikilocytosis 1+; Urine White Blood Cell Casts OK
[2019-11-17] MEDS: AMLODIPINE 5 MG TAB PO SCH (09:00)
[2019-11-17] MEDS ORDERED: SILVER SULFADIAZINE 1% 50 GM TOP SCH (09:00)
--- NOTE | 2019-11-17 09:28 | P.PN ---
Subjective Date of Service: 11/17/19 Chief Complaint: Respiratory failure Subjective: No new changes (Still on Ventilator Altered mental state, drowsy, and not responding to calls or touch) Review of Systems is unable to be obtained Physical Examination - Vital Signs Temperature: 99.4 F Blood Pressure: 151/60 Pulse: 85 Respirations: 25 Pulse Ox (%): 96 - Physical Exam General: Unresponsive HEENT: Atraumatic, Normocephalic Neck: Supple Respiratory: Clear to auscultation bilaterally Cardiovascular: Regular rate/rhythm Capillary refill: <2 Seconds Gastrointestinal: Soft and benign Musculoskeletal: No clubbing, Swelling Integumentary: Skin breakdown, Skin lesion Neurological: Other (Drowsy , Stuporous ) Lymphatics: No axilla or inguinal lymphadenopathy External genitalia: Deferred Rectal: Deferred - Studies Laboratory Last Values WBC 0.9 K/uL (4.3-10.9) L* D 11/17/19 05:15 RBC 3.67 M/uL (3.86-4.86) L 11/17/19 05:15 Hgb 10.4 g/dL (12.0-15.0) L 11/17/19 05:15 Hct 31.9 % (36.0-45.0) L 11/17/19 05:15 MCV 86.9 fL (80-100) 11/17/19 05:15 MCH 28.4 pg (27.0-35.0) 11/17/19 05:15 MCHC 32.7 g/dL (32.0-36.0) 11/17/19 05:15 RDW 17.7 % (12.1-15.2) H 11/17/19 05:15 Plt Count 29 K/uL (152-406) L* D 11/17/19 05:15 MPV 9.9 fL (7.6-11.3) 11/17/19 05:15 Plt Distribution Width Cancelled 11/09/19 10:22 Neutrophils % 26.8 % (41.7-73.7) L 11/17/19 05:15 Lymphocytes % 34.6 % (15.3-44.8) 11/17/19 05:15 Monocytes % 33.0 % (3.3-12.3) H 11/17/19 05:15 Eosinophils % 5.0 % (0-4.4) H 11/17/19 05:15 Basophils % 0.6 % (0-1.3) 11/17/19 05:15 Megakaryocytes % Cancelled 11/09/19 10:22 Absolute Neutrophils 0.2 K/uL (1.8-8.0) L 11/17/19 05:15 Segmented Neutrophils 40 % (40-80) 11/16/19 04:35 Band Neutrophils 6 % (0-1) H 11/11/19 07:33 Absolute Lymphocytes 0.3 K/uL (0.7-4.9) L 11/17/19 05:15 Lymphocytes 40 % (15-42) 11/16/19 04:35 Monocytes 4 % (0-10) 11/16/19 04:35 Absolute Monocytes 0.3 K/uL (0.1-1.3) 11/17/19 05:15 Eosinophils 16 % (0-3) H 11/16/19 04:35 Absolute Eosinophils 0.0 K/uL (0-0.5) 11/17/19 05:15 Absolute Basophils 0.0 K/uL (0-0.5) 11/17/19 05:15 Metamyelocytes 1 % (0-0) H 11/11/19 07:33 Diff Path Review Yes 11/11/19 07:33 WBC/PLT Morphology Cancelled 11/09/19 10:22 Platelet Estimate Cancelled 11/09/19 10:22 Clumped Platelets Cancelled 11/09/19 10:22 Giant Platelets Cancelled 11/09/19 10:22 Poikilocytosis 1+ 11/17/19 05:15 Anisocytosis 1+ 11/17/19 05:15 Rachael Cells 1+ 11/12/19 04:50 Elliptocytes 1+ 11/17/19 05:15 Schistocytes 1+ 11/12/19 04:50 Morphology Comment Noted (NOT SEEN) 11/17/19 05:15 PT 14.9 SECONDS (9.5-12.5) H 11/12/19 04:50 INR 1.27 11/12/19 04:50 APTT 32.9 SECONDS (24.3-36.9) 11/11/19 07:33 Fibrinogen 496 mg/dL (173-428) H 11/11/19 07:33 D-Dimer 6079 FEUng/mL (<500) H* 11/11/19 07:33 pH 7.39 (7.35-7.45) 11/13/19 05:00 pCO2 39.3 mmHG (35-45) 11/13/19 05:00 pO2 105.0 mmHG (75-100) H 11/13/19 05:00 HCO3 23.2 mmol/L (22-28) 11/13/19 05:00 Base Excess -1.0 mmol/L 11/13/19 05:00 Oxyhemoglobin 95.8 % (94-97) 11/13/19 05:00 ABG O2 Sat (Measured) 98.0 % (92-98.5) 11/13/19 05:00 ABG Carboxyhemoglobin 1.5 % (0-1.5) 11/13/19 05:00 ABG Methemoglobin 0.7 % (0-1.5) 11/13/19 05:00 Other Total Hgb 7.8 g/dl (12-18) L 11/13/19 05:00 Inspired O2 35.0 % 11/13/19 05:00 Sodium 145 mmol/L (136-145) 11/17/19 05:15 Potassium 4.5 mmol/L (3.5-5.1) 11/17/19 05:15 Chloride 110 mmol/L (98-107) H 11/17/19 05:15 Carbon Dioxide 28 mmol/L (21-32) 11/17/19 05:15 BUN 49 mg/dL (7-18) H 11/17/19 05:15 Creatinine 1.42 mg/dL (0.55-1.3) H 11/17/19 05:15 Estimated GFR 35 mL/min (=/>90) L 11/17/19 05:15 Glucose 234 mg/dL (74-106) H 11/17/19 05:15 POC Glucose 193 mg/dl (65-120) H 11/15/19 00:18 Lactic Acid 2.1 mmol/L (0.4-2.0) H 11/09/19 09:24 Calcium 7.9 mg/dL (8.5-10.1) L 11/17/19 05:15 Phosphorus 2.8 mg/dL (2.5-4.9) 11/15/19 04:50 Magnesium 1.9 mg/dL (1.8-2.4) 11/15/19 04:50 Total Bilirubin 3.3 mg/dL (0.2-1.0) H 11/14/19 04:45 Direct Bilirubin 0.6 mg/dL (0-0.2) H 11/09/19 05:30 AST 51 U/L (15-37) H 11/14/19 04:45 ALT 49 U/L (12-78) 11/14/19 04:45 Alkaline Phosphatase 186 U/L (45-117) H D 11/14/19 04:45 Lactate Dehydrogenase 260 U/L (84-246) H 11/11/19 07:33 Creatine Kinase 49 U/L (26-192) 11/09/19 05:30 CK-MB (CK-2) < 1.0 ng/mL (0.3-3.6) 11/09/19 05:30 Rapid Troponin I < 0.02 ng/mL (0.0-0.045) 11/09/19 05:30 NT-Pro-B Natriuret Pep 5999 pg/mL (<450) H 11/09/19 05:30 Serum Total Protein 5.5 g/dL (6.4-8.2) L 11/14/19 04:45 Albumin 2.0 g/dL (3.4-5.0) L 11/14/19 04:45 Globulin 3.5 g/dL (2.3-3.5) 11/14/19 04:45 Albumin/Globulin Ratio 0.6 (1.1-1.8) L 11/14/19 04:45 Lipase 199 U/L (73-393) 11/09/19 05:30 Urine Color Dk yellow 11/09/19 10:35 Urine Appearance Turbid 11/09/19 10:35 Urine pH 5.0 (5.0-7.0) 11/09/19 10:35 Ur Specific [place] 1.020 (1.005-1.030) 11/09/19 10:35 Glucose (UA)(Auto) Negative (NEG) 11/09/19 10:35 Urine Ketones Negative (NEG) 11/09/19 10:35 Urine Blood Negative (NEG) 11/09/19 10:35 Urine Nitrite Negative (NEG) 11/09/19 10:35 Urine Bilirubin Negative (NEG) 11/09/19 10:35 Urine Urobilinogen 1.0 mg/dL (0.2-1.0) 11/09/19 10:35 Ur Leukocyte Esterase 1+ (NEG) H 11/09/19 10:35 Urine RBC 5-10 /HPF (NONE SEEN) H 11/09/19 10:35 Urine WBC 10-20 /HPF (<5) H 11/09/19 10:35 Ur Squamous Epith Cells 20-50 /HPF (NONE SEEN) H 11/09/19 10:35 Amorphous Sediment 3+ /HPF (NONE SEEN) H 11/09/19 10:35 Urine Bacteria >50 /HPF (<20) H 11/09/19 10:35 Fine Granular Casts >10 /LPF (NONE SEEN) 11/09/19 10:35 Urine Yeast Few (NONE SEEN) 11/09/19 10:35 Urine Culture Reflexed Not needed 11/09/19 10:35 Urine Total Protein 2+ (NEG) H 11/09/19 10:35 Vancomycin Trough 12.1 ug/mL (5.0-20.0) 11/16/19 12:10 ABO/Rh O POSITIVE 11/13/19 15:55 Solid Phase Ab Screen Negative 11/13/19 15:55 Crossmatch See Detail 11/13/19 15:55 Assessment & Plan - Problems (Diagnosis) (1) Acute respiratory failure Current Visit: Yes Status: Acute (2) Hypoxia Current Visit: Yes Status: Acute (3) Hemoptysis Current Visit: Yes Status: Acute (4) Leukopenia Current Visit: Yes Status: Acute (5) Thrombocytopenia Current Visit: Yes Status: Acute (6) Chemotherapy induced neutropenia Current Visit: Yes Status: Acute (7) Diabetes Current Visit: No Status: Chronic Qualifiers: Diabetes mellitus type: type 2 Diabetes mellitus mcfp insulin use: without orthotic/prosthetic clinician use Diabetes mellitus complication status: without complication Qualified Code(s): E11.9 - Type 2 diabetes mellitus without complications (8) Hypertension Current Visit: No Status: Chronic Plan: Acute hypoxic respiratory failure Respiratory distress Multifocal pneumonia Hemoptysis LGL Leukopenia Thrombocytopenia DM HTN h/o Perforated Gastric Ulcer Sepsis due to Pneumonia Hypoglycemia possibly due to sepsis Plan intubated on mechanical ventilator support on broad-spectrum IV antibiotic blood cultures and sputum cultures negative so far Pulmonology, cardiology, hematology consults appreciated Thrombocytopenia and leukopenia noted No active bleeding Monitor CBC daily Renal parameters slightly worsened Monitor BMP in a.m. Elevated the margin consistent with possible DIC GI/DVT prophylaxis Advanced directives DNR (Talked to Daughter ) Qualifiers: Hypertension type: essential hypertension Qualified Code(s): I10 - Essential (primary) hypertension (9) DIC (disseminated intravascular coagulation) Current Visit: Yes Status: Acute Plan: Multifocal pneumonia Acute hypoxic respiratory failure Respiratory distress Hemoptysis LGL Leukopenia Thrombocytopenia DM HTN h/o Perforated Gastric Ulcer Sepsis due to Pneumonia Hypoglycemia possibly due to sepsis DIC Plan Still on mechanical ventilator support on broad-spectrum IV antibiotic blood cultures and sputum cultures negative so far Pulmonology, hematology consults Appreciated Chest x-ray findings noted with worsening of opacity Consulted hematology appreciate recommendation Monitor renal parameters On amiodarone for AFib Wound care consult appreciated Advanced directives DNR (Talked to Daughter ) Case discussed with Dr. Yan Plan to continue ventilator management till Wednesday Discuss with family in detail regarding the prognosis Time Spent Managing Pts Care (In Minutes): 45
[2019-11-17] MEDS: PANTOPRAZOLE 40 MG INJ IVP SCH (10:16)
[2019-11-17] MEDS: carvediloL 6.25 MG TAB PO SCH ×2 (10:17→20:07)
[2019-11-17] MEDS: AMIODARONE HCL 200 MG TAB PO SCH (10:17)
[2019-11-17] MEDS: TBO-FILGRASTIM 480 MCG/0.8 ML SYR SQ SCH (10:18)
[2019-11-17] MEDS: SILVER SULFADIAZINE 1% 25 GM TOP SCH (10:18)
[2019-11-17] MEDS: Meropenem 500 MG in NA CHLORIDE 0.9% 100 ML IV SCH ×2 (10:19→20:07)
--- NOTE | 2019-11-17 10:45 | P.PN ---
Subjective Date of Service: 11/17/19 Chief Complaint: Respiratory failure No change patient is unresponsive with some agonal respirations on the ventilator significant amount effusion on the left side pancytopenic Review of Systems is unable to be obtained Physical Examination - Vital Signs Temperature: 99.4 F Blood Pressure: 123/57 Pulse: 88 Respirations: 16 Pulse Ox (%): 98 - Physical Exam General: Unresponsive Respiratory: Diminished (Diminished air entry on the left side) Cardiovascular: No edema, Normal S1 S2 Assessment & Plan - Problems (Diagnosis) (1) Thrombocytopenia Current Visit: Yes Status: Acute Plan: No change in thrombocytopenia (2) Respiratory failure Current Visit: Yes Status: Acute Plan: Patient is unresponsive unable to wean off the ventilator has agonal respirations no change in oxygen requirement chest x-ray still shows significant amount of effusion on the left side was loculated patient is pancytopenic prognosis poor discuss with the family members regarding terminal wean and extubation day 1 await till Wednesday Dc amiodarone possibility of pulmonary toxicity all cultures are negative prognosis very poor CT scan of the head is unlikely to be any help also consider hospice care discussed with daughter Qualifiers: Chronicity: acute
[2019-11-17] MEDS: FENTANYL CITR 100 MCG/2 ML IV PRN (11:25)
[2019-11-17] MEDS ORDERED: METOPROLOL TARTRATE 5 MG/5 ML INJ IV STA (11:35)
[2019-11-17] MEDS: FLUCONAZOLE 400 MG IVPB 400 MG/200 ML BAG IV SCH (13:14)
[2019-11-17] MEDS: LORazepam 2 MG/ML VIAL IV PRN (13:25)
[2019-11-17] MEDS: METOPROLOL TARTRATE 5 MG/5 ML INJ IV PRN ×3 (14:35→22:44)
[2019-11-17] MEDS: DOXAZOSIN 2 MG TAB PO SCH (20:07)
[2019-11-17] MEDS: ACETAMINOPHEN 325 MG TABLET PO PRN (20:22)
[2019-11-17] MEDS: JEVITY 1.2 CAL LIQUID 1,000 ML BOT RTH SCH (20:44)
[2019-11-17] MEDS ORDERED: ROPINIROLE HCL 1 MG TAB PO SCH (21:00)
[2019-11-18] MEDS: VANCOMYCIN 1.75 GM in NA CHLORIDE 0.9% 500 ML IVPB SCH (01:35)
[2019-11-18] MEDS: FENTANYL CITR 100 MCG/2 ML IV PRN (03:00)
[2019-11-18 06:03] LABS: Absolute Lymphocytes (CBC) 0.4 K/uL (0.7-4.9); Basophils % 0.3 % (0-1.3); Hematocrit 27.8 % (36.0-45.0); Lymphocytes % 14.4 % (15.3-44.8); MPV 11.6 fL (7.6-11.3); RBC Red Blood Cell Count 3.17 M/uL (3.86-4.86)
[2019-11-18 06:08] LABS: Potassium 4.5 mmol/L (3.5-5.1)
[2019-11-18] MEDS: Meropenem 500 MG in NA CHLORIDE 0.9% 100 ML IV SCH ×2 (08:46→20:41)
[2019-11-18] MEDS: AMLODIPINE 5 MG TAB PO SCH (08:47)
[2019-11-18] MEDS: carvediloL 6.25 MG TAB PO SCH ×2 (08:47→20:40)
[2019-11-18] MEDS: ACETAMINOPHEN 325 MG TABLET PO PRN (08:47)
[2019-11-18] MEDS: PANTOPRAZOLE 40 MG INJ IVP SCH (08:47)
[2019-11-18] MEDS: TBO-FILGRASTIM 480 MCG/0.8 ML SYR SQ SCH (08:48)
[2019-11-18] MEDS: SILVER SULFADIAZINE 1% 25 GM TOP SCH (08:51)
[2019-11-18] MEDS: AMIODARONE HCL 200 MG TAB PO SCH ×2 (09:00→20:41)
--- NOTE | 2019-11-18 09:11 | P.PN ---
Subjective Date of Service: 11/18/19 Chief Complaint: Respiratory failure Patient continues to remain unresponsive hemodynamically stable the irregular breathing Review of Systems is unable to be obtained Physical Examination - Vital Signs Temperature: 101.4 F Blood Pressure: 112/87 Pulse: 89 Respirations: 22 Pulse Ox (%): 93 - Physical Exam General: Unresponsive Neck: Supple Respiratory: Diminished (Diminished air entry on the left side) Cardiovascular: No edema, Regular rate/rhythm Assessment & Plan - Problems (Diagnosis) (1) Thrombocytopenia Current Visit: Yes Status: Acute Plan: improving (2) Respiratory failure Current Visit: Yes Status: Acute Plan: Patient continues to be unresponsive she does have a loculated effusion on the left side patient's daughter has refuse any interventions has renal failure prognosis very poor vital signs stable no fever patient went into AFib again back on amiodarone discuss with the family they plan to withdraw care on Wednesday for maybe sooner Qualifiers: Chronicity: acute
[2019-11-18] MEDS ORDERED: AMIODARONE HCL 200 MG TAB ONE (09:16)
--- NOTE | 2019-11-18 10:00 | P.PN ---
Subjective Date of Service: 11/18/19 Chief Complaint: Respiratory failure Subjective: No new changes (Still intubated and on mechanical ventilator support ) Review of Systems is unable to be obtained Physical Examination - Vital Signs Temperature: 101.4 F Blood Pressure: 112/87 Pulse: 89 Respirations: 22 Pulse Ox (%): 93 - Physical Exam General: Unresponsive, Comatose HEENT: Atraumatic, Normocephalic Neck: Supple Respiratory: Clear to auscultation bilaterally Cardiovascular: Irregular heart rate/rhythm Capillary refill: <2 Seconds Gastrointestinal: Soft and benign, W/out hepatosplenomegaly Musculoskeletal: No clubbing, Swelling Integumentary: Skin lesion, Erythema Neurological: Other (Unresponsive, ) Lymphatics: No axilla or inguinal lymphadenopathy External genitalia: Deferred Rectal: Deferred - Studies Laboratory Last Values WBC 3.1 K/uL (4.3-10.9) L D 11/18/19 04:50 RBC 3.17 M/uL (3.86-4.86) L 11/18/19 04:50 Hgb 9.0 g/dL (12.0-15.0) L 11/18/19 04:50 Hct 27.8 % (36.0-45.0) L 11/18/19 04:50 MCV 87.7 fL (80-100) 11/18/19 04:50 MCH 28.5 pg (27.0-35.0) 11/18/19 04:50 MCHC 32.5 g/dL (32.0-36.0) 11/18/19 04:50 RDW 17.5 % (12.1-15.2) H 11/18/19 04:50 Plt Count 34 K/uL (152-406) L* 11/18/19 04:50 MPV 11.6 fL (7.6-11.3) H D 11/18/19 04:50 Plt Distribution Width Cancelled 11/09/19 10:22 Neutrophils % 73.8 % (41.7-73.7) H 11/18/19 04:50 Lymphocytes % 14.4 % (15.3-44.8) L 11/18/19 04:50 Monocytes % 10.1 % (3.3-12.3) 11/18/19 04:50 Eosinophils % 1.4 % (0-4.4) 11/18/19 04:50 Basophils % 0.3 % (0-1.3) 11/18/19 04:50 Megakaryocytes % Cancelled 11/09/19 10:22 Absolute Neutrophils 2.3 K/uL (1.8-8.0) 11/18/19 04:50 Segmented Neutrophils 40 % (40-80) 11/16/19 04:35 Band Neutrophils 6 % (0-1) H 11/11/19 07:33 Absolute Lymphocytes 0.4 K/uL (0.7-4.9) L 11/18/19 04:50 Lymphocytes 40 % (15-42) 11/16/19 04:35 Monocytes 4 % (0-10) 11/16/19 04:35 Absolute Monocytes 0.3 K/uL (0.1-1.3) 11/18/19 04:50 Eosinophils 16 % (0-3) H 11/16/19 04:35 Absolute Eosinophils 0.0 K/uL (0-0.5) 11/18/19 04:50 Absolute Basophils 0.0 K/uL (0-0.5) 11/18/19 04:50 Metamyelocytes 1 % (0-0) H 11/11/19 07:33 Diff Path Review Yes 11/11/19 07:33 WBC/PLT Morphology Cancelled 11/09/19 10:22 Platelet Estimate Cancelled 11/09/19 10:22 Clumped Platelets Cancelled 11/09/19 10:22 Giant Platelets Cancelled 11/09/19 10:22 Poikilocytosis 1+ 11/17/19 05:15 Anisocytosis 1+ 11/17/19 05:15 Clover Cells 1+ 11/12/19 04:50 Elliptocytes 1+ 11/17/19 05:15 Schistocytes 1+ 11/12/19 04:50 Morphology Comment Noted (NOT SEEN) 11/17/19 05:15 PT 14.9 SECONDS (9.5-12.5) H 11/12/19 04:50 INR 1.27 11/12/19 04:50 APTT 32.9 SECONDS (24.3-36.9) 11/11/19 07:33 Fibrinogen 496 mg/dL (173-428) H 11/11/19 07:33 D-Dimer 6079 FEUng/mL (<500) H* 11/11/19 07:33 pH 7.39 (7.35-7.45) 11/13/19 05:00 pCO2 39.3 mmHG (35-45) 11/13/19 05:00 pO2 105.0 mmHG (75-100) H 11/13/19 05:00 HCO3 23.2 mmol/L (22-28) 11/13/19 05:00 Base Excess -1.0 mmol/L 11/13/19 05:00 Oxyhemoglobin 95.8 % (94-97) 11/13/19 05:00 ABG O2 Sat (Measured) 98.0 % (92-98.5) 11/13/19 05:00 ABG Carboxyhemoglobin 1.5 % (0-1.5) 11/13/19 05:00 ABG Methemoglobin 0.7 % (0-1.5) 11/13/19 05:00 Other Total Hgb 7.8 g/dl (12-18) L 11/13/19 05:00 Inspired O2 35.0 % 11/13/19 05:00 Sodium 144 mmol/L (136-145) 11/18/19 04:50 Potassium 4.5 mmol/L (3.5-5.1) 11/18/19 04:50 Chloride 110 mmol/L (98-107) H 11/18/19 04:50 Carbon Dioxide 27 mmol/L (21-32) 11/18/19 04:50 BUN 65 mg/dL (7-18) H 11/18/19 04:50 Creatinine 1.67 mg/dL (0.55-1.3) H 11/18/19 04:50 Estimated GFR 29 mL/min (=/>90) L 11/18/19 04:50 Glucose 210 mg/dL (74-106) H 11/18/19 04:50 POC Glucose 193 mg/dl (65-120) H 11/15/19 00:18 Lactic Acid 2.1 mmol/L (0.4-2.0) H 11/09/19 09:24 Calcium 7.8 mg/dL (8.5-10.1) L 11/18/19 04:50 Phosphorus 2.8 mg/dL (2.5-4.9) 11/15/19 04:50 Magnesium 1.9 mg/dL (1.8-2.4) 11/15/19 04:50 Total Bilirubin 3.3 mg/dL (0.2-1.0) H 11/14/19 04:45 Direct Bilirubin 0.6 mg/dL (0-0.2) H 11/09/19 05:30 AST 51 U/L (15-37) H 11/14/19 04:45 ALT 49 U/L (12-78) 11/14/19 04:45 Alkaline Phosphatase 186 U/L (45-117) H D 11/14/19 04:45 Lactate Dehydrogenase 260 U/L (84-246) H 11/11/19 07:33 Creatine Kinase 49 U/L (26-192) 11/09/19 05:30 CK-MB (CK-2) < 1.0 ng/mL (0.3-3.6) 11/09/19 05:30 Rapid Troponin I < 0.02 ng/mL (0.0-0.045) 11/09/19 05:30 NT-Pro-B Natriuret Pep 5999 pg/mL (<450) H 11/09/19 05:30 Serum Total Protein 5.5 g/dL (6.4-8.2) L 11/14/19 04:45 Albumin 2.0 g/dL (3.4-5.0) L 11/14/19 04:45 Globulin 3.5 g/dL (2.3-3.5) 11/14/19 04:45 Albumin/Globulin Ratio 0.6 (1.1-1.8) L 11/14/19 04:45 Lipase 199 U/L (73-393) 11/09/19 05:30 Urine Color Dk yellow 11/09/19 10:35 Urine Appearance Turbid 11/09/19 10:35 Urine pH 5.0 (5.0-7.0) 11/09/19 10:35 Ur Specific [place] 1.020 (1.005-1.030) 11/09/19 10:35 Glucose (UA)(Auto) Negative (NEG) 11/09/19 10:35 Urine Ketones Negative (NEG) 11/09/19 10:35 Urine Blood Negative (NEG) 11/09/19 10:35 Urine Nitrite Negative (NEG) 11/09/19 10:35 Urine Bilirubin Negative (NEG) 11/09/19 10:35 Urine Urobilinogen 1.0 mg/dL (0.2-1.0) 11/09/19 10:35 Ur Leukocyte Esterase 1+ (NEG) H 11/09/19 10:35 Urine RBC 5-10 /HPF (NONE SEEN) H 11/09/19 10:35 Urine WBC 10-20 /HPF (<5) H 11/09/19 10:35 Ur Squamous Epith Cells 20-50 /HPF (NONE SEEN) H 11/09/19 10:35 Amorphous Sediment 3+ /HPF (NONE SEEN) H 11/09/19 10:35 Urine Bacteria >50 /HPF (<20) H 11/09/19 10:35 Fine Granular Casts >10 /LPF (NONE SEEN) 11/09/19 10:35 Urine Yeast Few (NONE SEEN) 11/09/19 10:35 Urine Culture Reflexed Not needed 11/09/19 10:35 Urine Total Protein 2+ (NEG) H 11/09/19 10:35 Vancomycin Trough 14.5 ug/mL (5.0-20.0) 11/18/19 00:20 ABO/Rh O POSITIVE 11/13/19 15:55 Solid Phase Ab Screen Negative 11/13/19 15:55 Crossmatch See Detail 11/13/19 15:55 Assessment & Plan - Problems (Diagnosis) (1) Acute respiratory failure Current Visit: Yes Status: Acute (2) Hypoxia Current Visit: Yes Status: Acute (3) Hemoptysis Current Visit: Yes Status: Acute (4) Leukopenia Current Visit: Yes Status: Acute (5) Thrombocytopenia Current Visit: Yes Status: Acute (6) Chemotherapy induced neutropenia Current Visit: Yes Status: Acute (7) Diabetes Current Visit: No Status: Chronic Qualifiers: Diabetes mellitus type: type 2 Diabetes mellitus prison insulin use: without prison use Diabetes mellitus complication status: without complication Qualified Code(s): E11.9 - Type 2 diabetes mellitus without complications (8) Hypertension Current Visit: No Status: Chronic Plan: Acute hypoxic respiratory failure Respiratory distress Multifocal pneumonia Hemoptysis LGL Leukopenia Thrombocytopenia DM HTN h/o Perforated Gastric Ulcer Sepsis due to Pneumonia Hypoglycemia possibly due to sepsis Plan intubated on mechanical ventilator support on broad-spectrum IV antibiotic blood cultures and sputum cultures negative so far Pulmonology, cardiology, hematology consults appreciated Thrombocytopenia and leukopenia noted No active bleeding Monitor CBC daily Renal parameters slightly worsened Monitor BMP in a.m. Elevated the margin consistent with possible DIC GI/DVT prophylaxis Advanced directives DNR (Talked to Daughter ) Qualifiers: Hypertension type: essential hypertension Qualified Code(s): I10 - Essential (primary) hypertension (9) DIC (disseminated intravascular coagulation) Current Visit: Yes Status: Acute Plan: Acute encephalopathy Multifocal pneumonia Acute hypoxic respiratory failure Respiratory distress Hemoptysis LGL Leukopenia Thrombocytopenia DM HTN h/o Perforated Gastric Ulcer Sepsis due to Pneumonia Hypoglycemia possibly due to sepsis DIC Plan Still on mechanical ventilator support on broad-spectrum IV antibiotic blood cultures and sputum cultures negative Pulmonology, cardiology, hematology consults Appreciated Chest x-ray findings noted with worsening of opacity possibly loculated effusion Monitor renal parameters On amiodarone for AFib Wound care consult appreciated Advanced directives DNR (Talked to Daughter ) Case discussed with Dr. Yan Plan to continue ventilator management till Wednesday Discuss with family in detail regarding the prognosis Physician Review: Patient Assessed, Agree with Above Assessment and Plan Time Spent Managing Pts Care (In Minutes): 42
--- NOTE | 2019-11-18 11:02 | EKG ---
Test Date: 2019-11-17 Test Time: 12:10:39 Student Ambassador: MENDY MEASUREMENT RESULTS: Intervals: Rate: 119 OR: QRSD: 86 QT: 332 QTc: 467 [place]: P: OR: QRS: -37 T: 111 INTERPRETIVE STATEMENTS: Atrial fibrillation with rapid ventricular response Left axis deviation Anterolateral infarct, age undetermined Abnormal ECG Compared to ECG 11/10/2019 15:16:56 Sinus rhythm no longer present Myocardial infarct finding still present Electronically Signed On 11-18-19 11:00:48 [employer] by Duy Navarro
[2019-11-18] MEDS: ACETAMINOPHEN 650MG/RECT SUPP PR PRN (13:05)
[2019-11-18] MEDS: FLUCONAZOLE 400 MG IVPB 400 MG/200 ML BAG IV SCH (13:05)
[2019-11-18] MEDS: DOXAZOSIN 2 MG TAB PO SCH (20:41)
[2019-11-19] MEDS: SILVER SULFADIAZINE 1% 25 GM TOP SCH (04:00)
[2019-11-19 05:56] LABS: Absolute Lymphocytes (CBC) 0.4 K/uL (0.7-4.9); Basophils % 0.3 % (0-1.3); Hematocrit 25.6 % (36.0-45.0); Lymphocytes % 7.1 % (15.3-44.8); MPV 11.1 fL (7.6-11.3); RBC Red Blood Cell Count 2.98 M/uL (3.86-4.86)
[2019-11-19 05:59] LABS: Potassium 4.3 mmol/L (3.5-5.1)
[2019-11-19 07:32] LABS: Magnesium 2.1 mg/dL (1.8-2.4); Phosphorus 3.8 mg/dL (2.5-4.9)
[2019-11-19] MEDS: AMLODIPINE 5 MG TAB PO SCH (09:00)
[2019-11-19] MEDS: carvediloL 6.25 MG TAB PO SCH ×2 (09:00→21:00)
[2019-11-19] MEDS: TBO-FILGRASTIM 480 MCG/0.8 ML SYR SQ SCH (09:29)
[2019-11-19] MEDS: AMIODARONE HCL 200 MG TAB PO SCH ×2 (09:29→21:29)
[2019-11-19] MEDS: Meropenem 500 MG in NA CHLORIDE 0.9% 100 ML IV SCH ×2 (09:29→21:29)
[2019-11-19] MEDS: PANTOPRAZOLE 40 MG INJ IVP SCH (09:31)
--- NOTE | 2019-11-19 11:55 | P.PN ---
Subjective Date of Service: 11/19/19 Chief Complaint: Respiratory failure No major changes. 10th day Intuibation. Patient remained unresponsive. White cell counts and platelet count have improved but patient remained unresponsive and overall has not responded to aggressive measures. She remain Vent dependent. Physical Examination - Vital Signs Temperature: 98.7 F Blood Pressure: 122/56 Pulse: 65 Respirations: 15 Pulse Ox (%): 97 - Physical Exam General: Unresponsive HEENT: Other (Intubated, on assist-control ventilation) Neck: Supple, JVD not distended Respiratory: Other (Bilateral upper airway transmitted sounds.) Cardiovascular: Regular rate/rhythm, Normal S1 S2, Edema (Bilateral lower extremities and upper extremities), Systolic murmur Gastrointestinal: Normal bowel sounds, No tenderness, Distended Musculoskeletal: No erythema Neurological: Other (Unresponsive) Assessment And Plan - Current Problems (Diagnosis) (1) Acute respiratory failure Current Visit: Yes Status: Acute (2) Chemotherapy induced neutropenia Current Visit: Yes Status: Acute (3) DIC (disseminated intravascular coagulation) Current Visit: Yes Status: Acute (4) Septic shock Current Visit: Yes Status: Acute (5) Thrombocytopenia Current Visit: Yes Status: Acute (6) Diabetes Current Visit: No Status: Chronic Qualifiers: Diabetes mellitus type: type 2 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 Continue antibiotics. Loculated pleural effusion present. WBC count and platelet count have improved. Continue tube feeding. Check residual. Patient is currently in sinus rhythm. She has been in and out of AFib. Continue amiodarone via NGT. Overall no significant clinical response to treatment Poor prognosis. She is DNR. Family leaning towards withdrawal of treatment. Decision to be made tomorrow. Physician Review: Patient Assessed, Agree with Above Assessment and Plan
[2019-11-19] MEDS: FLUCONAZOLE 400 MG IVPB 400 MG/200 ML BAG IV SCH (12:16)
[2019-11-19] MEDS: VANCOMYCIN 1.75 GM in NA CHLORIDE 0.9% 500 ML IVPB SCH (12:44)
[2019-11-19] MEDS: DOXAZOSIN 2 MG TAB PO SCH (21:00)
[2019-11-19 23:29] VITALS: O2SAT 97
[2019-11-20 05:16] LABS: Absolute Lymphocytes (CBC) 0.5 K/uL (0.7-4.9); Basophils % 0.4 % (0-1.3); Lymphocytes % 4.7 % (15.3-44.8); MPV 10.5 fL (7.6-11.3); RBC Red Blood Cell Count 3.01 M/uL (3.86-4.86)
[2019-11-20 05:34] LABS: Potassium 4.4 mmol/L (3.5-5.1)
[2019-11-20 06:32] VITALS: TEMP 100.5
[2019-11-20 06:47] LABS: Dohle Bodies PRESENT; Platelet Estimate DECR; Toxic Granulation 2+
[2019-11-20 06:48] LABS: Blood Morphology Comment NOT SEEN (NOT SEEN)
[2019-11-20 07:02] VITALS: BMI 35.3
--- NOTE | 2019-11-20 08:21 | P.PN ---
Subjective Date of Service: 11/20/19 Chief Complaint: Respiratory failure Patient's condition was stable labs are improving daughter at the bedside cultures all negative Review of Systems is unable to be obtained Physical Examination - Vital Signs Temperature: 100.5 F Blood Pressure: 151/59 Pulse: 77 Respirations: 15 Pulse Ox (%): 95 - Physical Exam General: Alert Respiratory: Diminished (Diminished on the left side) Cardiovascular: Edema Gastrointestinal: Normal bowel sounds Assessment & Plan - Problems (Diagnosis) (1) Thrombocytopenia Current Visit: Yes Status: Acute Plan: improving no change (2) Respiratory failure Current Visit: Yes Status: Acute Plan: Plan to wean off and extubate she is still wearing a borderline temperature family members want comfort care was this consultation withdrawal from the ventilator as per patient's wishes labs reviewed renal function is improving pancytopenia as also improving Dc all antibiotics transfer to the floor Qualifiers: Chronicity: acute Physician Review: Patient Assessed, Agree with Above Assessment and Plan
[2019-11-20] MEDS: TBO-FILGRASTIM 480 MCG/0.8 ML SYR SQ SCH ×2 (08:42→08:52)
[2019-11-20] MEDS: carvediloL 6.25 MG TAB PO SCH (08:43)
[2019-11-20] MEDS: AMLODIPINE 5 MG TAB PO SCH (08:44)
[2019-11-20] MEDS: SILVER SULFADIAZINE 1% 25 GM TOP SCH (08:45)
[2019-11-20] MEDS ORDERED: AMLODIPINE 2.5 MG TAB ONE (08:46)
[2019-11-20 11:40] VITALS: BP 122/43
--- NOTE | 2019-11-20 15:26 | PN ---
Date of Progress Note: 11/20/2019 Subjective: Patient seen and examined. Chart reviewed and case discussed with RN. Daughter at the bedside. Case discussed with Dr. Garg. Patient seems to be awake, does follow some commands. Has a temperature 100.5, still intubated, not sedated. Medications list reviewed. Code status DNR. Physical Examination: Vital Signs: Temperature is 100.5, heart rate 77, blood pressure 151/59, respirations 15, O2 95% via ET tube 35% FiO2. General: Awake, alert, responsive. Does follow commands. CV: S1, S2. Regular rate and rhythm. Peripheral pulses present. Respiratory: Diminished breath sounds. No wheezing or stridor. Gastrointestinal: Abdomen is soft, nontender, nondistended. Positive bowel sounds. Extremities: No clubbing or cyanosis. Pedal edema is present. Patient also has edema of the upper extremities. Neuro: The patient has weakness on the left upper and lower extremity, otherwise does follow commands, opens eyes spontaneously, intubated. Laboratory Data: Sodium 145, potassium 4.4, chloride 110, CO2 of 28, BUN 58, creatinine 1.58, glucose 230, calcium 7.9. WBC 10.5, H and H 8.5, 26, platelets 57, neutrophils 90%, 1% bands. Blood cultures, no growth to date. Assessment And Plan: 1. Acute respiratory failure with hypoxia. Patient is currently intubated on 35% FiO2. Plan is for extubation. Patient is now do not resuscitate. Family is interested in care and comfort measures. Appreciate Pulmonology input. 2. Chemotherapy-induced neutropenia, improving. We will continue to monitor. 3. Septic shock, improved. Blood pressure is stable, not on any pressors at this time. 4. Disseminated intravascular coagulation. 5. Thrombocytopenia, improving. No spontaneous bleeding. 6. Diabetes mellitus type 2 without long-term use of insulin with hyperglycemia. Continue sliding scale insulin. 7. Atrial fibrillation, paroxysmal. 8. Anemia. Continue to monitor H and H, transfuse as needed. 9. Bilateral pneumonia. Cultures have been negative. 10. Left-sided weakness, possible cerebrovascular accident. 11. Obesity, BMI 35. Patient to be extubated today. The patient's family isinterested in care and comfort measures and hospice care. Overall prognosis is poor. We will transfer to the floor once extubated. Will likely benefit from hospice. SA/MODL Voice ID: [id number] Report ID: [id number] AMAN
--- NOTE | 2019-11-24 23:27 | DS ---
Date of Discharge: 11/20/2019 Consultants: 1. Dr. Garg, Pulmonology. 2. Dr. Navarro, Cardiology. 3. Dr. Raphael with Oncology. Admitting Diagnoses: 1. Acute respiratory failure with hypoxia. 2. Hemoptysis. 3. Leukopenia. 4. Thrombocytopenia. 5. Chemotherapy-induced neutropenia. 6. Diabetes mellitus type 2 without long-term use of insulin. 7. Essential hypertension. 8. History of perforated gastric ulcer. 9. Sepsis. 10. Pneumonia. 11. Hypoglycemia. Discharge Diagnoses: 1. Acute respiratory failure with hypoxia, terminally extubated. 2. Chemotherapy-induced neutropenia. 3. Septic shock. 4. Disseminated intravascular coagulation. 5. Pancytopenia. 6. Diabetes mellitus type 2 without long-term use of insulin with hyperglycemia. 7. Atrial fibrillation, paroxysmal. 8. Anemia. 9. Bilateral pneumonia. 10. Left-sided weakness. 11. Obesity, BMI 35. 12. Hypoglycemia. 13. History of perforated gastric ulcer. Hospital Course: Patient is an 84-year-old female with complicated past medical history including diabetes, restless legs syndrome, hypertension, kidney stones, comes in with sudden hemoptysis. 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 Patient was admitted to the ICU and was intubated on mechanical ventilation. She was started on broad-spectrum IV antibiotics. Cultures were obtained. Pulmonology consultation was sought. Patient was transfused platelets. Hematology was also consulted. Patient was also started on Solu- Medrol, she was in septic shock and required Levophed. The patient's directives were then changed to DNR. Patient had severe thrombocytopenia and chemotherapy-induced neutropenia with neutrophils of about 200. She was seen by Dr. Raphael, she did develop DIC. The patient's overall condition was very poor. Her initial ABG showed pH of 7.1. Patient was also acidotic. She had kidney dysfunction. Patient was seen by Pulmonology and Cardiology. Due to her poor prognosis patient was extubated terminally. Patient did develop atrial fibrillation as well new onset. Patient was then switched over to hospice care and on 11/21/2019. For physical exam findings, please see progress note dictated on day of discharge. SA/MODL Voice ID: [id number] Report ID: [id number] MTDD
== END 2019-11-20 11:32 | disposition hospice, inpatient (51) | DRG 207 ==
LOC: ER 05:16 → ERHOLD 07:44 → 3RD-ICU 09:31
PROVIDERS: ADMIT Family Medicine; ATTEND Family Medicine
PROC: 0BH17EZ Insertion of Endotracheal Airway into Trachea, Via Natural or Artificial Opening (ICD-10-PCS; principal; 2019-11-09)
PROC: 5A1955Z Respiratory Ventilation, Greater than 96 Consecutive Hours (ICD-10-PCS; 2019-11-09)
PROC: 30233R1 Transfusion of Nonautologous Platelets into Peripheral Vein, Percutaneous Approach (ICD-10-PCS; 2019-11-09)
PROC: 3E0G76Z Introduction of Nutritional Substance into Upper GI, Via Natural or Artificial Opening (ICD-10-PCS; 2019-11-13)
DX: J18.9 Pneumonia, unspecified organism (principal); R65.21 Severe sepsis with septic shock; D65 Disseminated intravascular coagulation [defibrination syndrome]; J96.01 Acute respiratory failure with hypoxia; G93.41 Metabolic encephalopathy; I63.9 Cerebral infarction, unspecified; J91.8 Pleural effusion in other conditions classified elsewhere; N17.9 Acute kidney failure, unspecified; G81.94 Hemiplegia, unspecified affecting left nondominant side; R04.2 Hemoptysis; C91.Z0 Other lymphoid leukemia not having achieved remission; E87.2 Acidosis; E11.649 Type 2 diabetes mellitus with hypoglycemia without coma; I48.91 Unspecified atrial fibrillation; I10 Essential (primary) hypertension; D70.1 Agranulocytosis secondary to cancer chemotherapy; G25.81 Restless legs syndrome; Z66 Do not resuscitate; Z51.5 Encounter for palliative care; Z99.81 Dependence on supplemental oxygen; Z79.52 Long term (current) use of systemic steroids; Z95.2 Presence of prosthetic heart valve; Z79.4 Long term (current) use of insulin
CPT/HCPCS: 31500; 36415; 36430; 51702; 71045; 71250; 71275; 74018; 76604; 80048; 80053; 80076; 80202; 81001; 82550; 82553; 82805; 82947; 83605; 83615; 83690; 83735; 83880; 84100; 84484; 85025; 85049; 85379; 85384; 85610; 85730; 86850; 86900; 86901; 87040; 87070; 87205; 93005; 93306; 94002; 94003; 99251; 99291; 99292; C9113; J0282; J0330; J0360; J0456; J0610; J0692; J1160; J1447; J1450; J1940; J2250; J2370; J2704; J2920; J3010; J7030; J7040; J7042; J7060; J7120; P9016; P9035; P9047; Q9967

== ENCOUNTER 2019-11-20 11:37 | Inpatient (IN) | payer OTHER ==
--- OUTSIDE RECORDS SUMMARY | 2019-11-20 11:38 | XMS REPORT ---
:1935 [facility] Address [address] [place] [address] Dr. Castro [address] [place] [id number] Care Team Providers Name Role Phone Unavailable [...]
[2019-11-20] MEDS ORDERED: LORazepam 2 MG/ML VIAL IV SCH (12:00)
[2019-11-20] MEDS ORDERED: SCOPOLAMINE HYDROBROMIDE PATCH TD SCH (12:00)
[2019-11-20] MEDS ORDERED: MORPHINE 2 MG/ML SYR IV SCH (12:00)
[2019-11-20 12:08] VITALS: BMI 35.4
[2019-11-20] MEDS: LORazepam 2 MG/ML VIAL IV PRN (14:53)
[2019-11-20] MEDS: MORPHINE 2 MG/ML SYR IV PRN (16:54)
[2019-11-21] MEDS: MORPHINE 2 MG/ML SYR IV PRN ×4 (02:24→11:31)
[2019-11-21] MEDS: LORazepam 2 MG/ML VIAL IV PRN ×2 (04:02→11:31)
[2019-11-21 08:55] VITALS: BP 120/57; TEMP 97.8
== END 2019-11-21 12:56 | disposition expired | DRG 951 ==
LOC: 3RD-ICU 11:37 → 2ND 17:11
PROVIDERS: ADMIT Internal Medicine Medical Oncology; ATTEND Internal Medicine Medical Oncology
DX: Z51.5 Encounter for palliative care (principal); J96.01 Acute respiratory failure with hypoxia; Z66 Do not resuscitate
CPT/HCPCS: J2270